=== PATIENT | female | born 1950 | race Caucasian/White ===

== ENCOUNTER → 2020-07-05 12:43 | Outpatient (REF) | payer MEDICARE, SELFPAY ==
--- NOTE | 2020-07-05 13:18 | ECG_ITS ---
Hook-up date: 2020-07-05 12:57:00 Duration: 23:15:00 Test Indications: Palpitations Medications: [id number] QRS complexes 3 Ventricular ectopics which represent <1 % of total QRS comp. 16 Supraventricular ectopics which represent <1 % of total QRS comp. * Paced QRS complexs which represent % of total QRS comp. VENTRICULAR ECTOPY 3 Isolated 0 Bigeminal Cycles 0 Couplets 0 Runs 0 Beats in Runs * Beats LONGEST at * BPM at :: -- * Beats FASTEST at * BPM at :: -- SUPRAVENTRICULAR ECTOPY 16 Isolated 0 Couplets 0 Runs 0 Beats in Runs * Beats LONGEST at * BPM at :: -- * Beats FASTEST at * BPM at :: -- HEART RATES 62 MIN at 19:32:50 2020-07-05 87 AVG 135 MAX at 10:47:21 2020-07-06 LONGEST RR 1.0960 secs at 19:32:46 2020-07-05 S-T LEVELS Channel 1 - 128 mm at 12:57:00 2020-07-05 - 128 mm at 12:57:00 2020-07-05 Channel 2 - 128 mm at 12:57:00 2020-07-05 - 128 mm at 12:57:00 2020-07-05 Channel 3 - 128 mm at 03:21:61 -- - 128 mm at 03:21:61 Basic rhythm Normal sinus rhythm No long pause or profound bradycardia Rare Premature atrial complexes Patient did not report any symptoms in the diary Referred By: Bryan Luz Overread By: PEDRO LUIS LAGUNA MD
== END ==
LOC: HO.CARD 12:43
PROVIDERS: PCP Nurse Practitioner Family; Visit Provider Nurse Practitioner Family
DX: R00.2 Palpitations (principal)
CPT/HCPCS: 93225; 93226

== ENCOUNTER → 2020-07-14 09:40 | Outpatient (BNVA) | payer MEDICARE, SELFPAY | PROVIDERS: PCP Nurse Practitioner Family; Referring Provider Nurse Practitioner Family; Visit Provider Internal Medicine | DX: E11.65 Type 2 diabetes mellitus with hyperglycemia (principal); E04.2 Nontoxic multinodular goiter; E03.9 Hypothyroidism, unspecified; E55.9 Vitamin D deficiency, unspecified; M81.0 Age-related osteoporosis without current pathological fracture; Z79.84 Long term (current) use of oral hypoglycemic drugs; Z79.899 Other long term (current) drug therapy; Z71.3 Dietary counseling and surveillance; Z68.38 Body mass index [BMI] 38.0-38.9, adult | CPT/HCPCS: 82947; 99212 ==

== ENCOUNTER 2020-07-19 11:08 | Outpatient (REF) | payer MEDICARE, SELFPAY ==
--- NOTE | 2020-07-19 | MM_ITS ---
EXAMINATION: MM SCREENING DIGITAL BREAST TOMOSYNTHESIS, BILATERAL CLINICAL INFORMATION: Screening. Asymptomatic. The lifetime risk of breast cancer based on the Tyrer-Cuzick Model is 2.7%. COMPARISON: Mammography: 05/29/2018 and multiple previous mammograms dated back to 08/25/2013 TECHNIQUE: Digital breast tomosynthesis is performed in both the craniocaudal and mediolateral oblique views along with computer-aided detection (CAD). Synthesized 2D images are generated from the tomosynthesis. FINDINGS: There are scattered areas of fibroglandular density (ACR BI-RADS breast composition Category b). There are no significant masses, abnormal calcifications, or other abnormalities. MM/MM tomosynthesis screening BI IMPRESSION: No evidence of malignancy ASSESSMENT: BI-RADS 1: Negative RECOMMENDATION: Routine annual mammography screening. This patient's information was entered into a reminder system with a target due date for their next mammogram.
== END 2020-07-19 11:09 | disposition home or self-care (01) ==
LOC: HO.MAMMO 11:08
PROVIDERS: PCP Nurse Practitioner Family; Visit Provider Nurse Practitioner Family
DX: Z12.31 Encounter for screening mammogram for malignant neoplasm of breast (principal)
CPT/HCPCS: 77063; 77067

== ENCOUNTER 2020-07-27 17:28 | Outpatient (REF) | payer MEDICARE, SELFPAY | END 2020-07-27 17:29 | disposition home or self-care (01) | LOC: HO.LNP 17:28 | PROVIDERS: Visit Provider Internal Medicine | DX: Z20.828 Contact with and (suspected) exposure to other viral communicable diseases (principal) | CPT/HCPCS: U0003 ==

== ENCOUNTER 2020-09-15 09:17 | Outpatient (REF) | payer MEDICARE, SELFPAY ==
[2020-09-15 11:33] LABS: Phosphorus 3.3 mg/dL (2.7-4.5)
[2020-09-15 11:35] LABS: Alanine Aminotransferase 22 U/L (0-31); Albumin Level 4.2 g/dL (3.5-5.0); Alkaline Phosphatase 53 U/L (39-117); Anion Gap 15 (12-20); Aspartate Amino Transferase 19 U/L (5-31); Bilirubin Total 0.3 mg/dL (0.0-1.0); Blood Urea Nitrogen 16 mg/dL (9-16); Calcium 8.3 mg/dL (8.4-10.2); Carbon Dioxide 25 mmol/L (22-29); Chloride 104 mmol/L (96-108); Cholesterol 147 mg/dL; Estimated Glomerular Filt Rate > 60; Glucose Fasting 165 mg/dL (60-99); HDL Cholesterol 60 mg/dL; LDL Cholesterol Calculated 69 mg/dl; Potassium 4.5 mmol/l (3.3-5.1); Sodium 139 mmol/L (135-145); Total Protein 6.7 g/dL (6.5-8.0); Triglycerides 91 mg/dL
[2020-09-15 11:36] LABS: Estimated Average Glucose 148 mg/dL; Hemoglobin A1c % 6.8 %
[2020-09-15 12:00] LABS: Free T4 (Free Thyroxine) 1.02 ng/dL (0.71-1.85); Thyroid Stimulating Hormone 0.41 uIU/mL (0.32-4.0); Vitamin D 25-OH Total 35.5 ng/mL (>30)
[2020-09-15 14:47] LABS: Albumin Level 4.2 g/dL (3.5-5.0); Calcium 8.3 mg/dL (8.4-10.2)
[2020-09-16 15:57] LABS: Calcium, Ionized 4.6 mg/dL (4.8-5.6)
[2020-09-16 17:57] LABS: Calcium (PTHI) 8.5 mg/dL (8.6-10.4); PTHI 44 pg/mL (14-64)
[2020-09-20 15:17] LABS: Prot Elec - Albumin 3.7 g/dL (3.8-4.8); Prot Elec - Alpha1 0.3 g/dL (0.2-0.3); Prot Elec - Alpha2 0.8 g/dL (0.5-0.9); Prot Elec - Beta 1 0.6 g/dL (0.4-0.6); Prot Elec - Beta 2 0.4 g/dL (0.2-0.5); Prot Elec - Gamma 0.7 g/dL (0.8-1.7); Prot Elec - Total Protein 6.5 g/dL (6.1-8.1)
[2020-09-20 22:16] LABS: Alkaline Phosphatase Bone 6.2 mcg/L (5.6-29.0)
[2020-09-22 01:02] LABS: N-Telopeptide 32 (see note); NTXCreaRU 193 mg/dL (20-275)
== END 2020-09-15 09:18 | disposition home or self-care (01) ==
LOC: HO.HMGCLDS 09:17
PROVIDERS: Internal Medicine; PCP Nurse Practitioner Family; Visit Provider Nurse Practitioner Family
DX: M81.0 Age-related osteoporosis without current pathological fracture (principal); E11.65 Type 2 diabetes mellitus with hyperglycemia; E03.9 Hypothyroidism, unspecified; E55.9 Vitamin D deficiency, unspecified
CPT/HCPCS: 36415; 80053; 80061; 82040; 82306; 82310; 82330; 82523; 83036; 83970; 84075; 84100; 84155; 84165; 84439; 84443

== ENCOUNTER 2020-09-22 09:33 | Outpatient (REF) | payer MEDICARE, SELFPAY ==
[2020-09-22 11:40] LABS: Total Volume 24 Hour Urine 1475 mL
[2020-09-22 12:39] LABS: Creatinine, 24Hr Urine 1.6 G/Day (1.0-2.0); Creatinine, mg/dL 107.61
[2020-09-24 19:07] LABS: Calcium, 24 Hr Urine 366 mg/24 h; Calcium/Creatinine Ratio 232 mg/g creat (30-275); Creatinine 24Hr Urine 1.58 g/24 h (0.50-2.15)
== END 2020-09-22 09:34 | disposition home or self-care (01) ==
LOC: HO.HMGCLNP 09:33
PROVIDERS: Visit Provider Internal Medicine
DX: M81.0 Age-related osteoporosis without current pathological fracture (principal)
CPT/HCPCS: 82340; 82570

== ENCOUNTER 2020-09-27 11:09 | Outpatient (REF) | payer MEDICARE, SELFPAY ==
--- NOTE | 2020-09-27 12:56 | MHC.AU.P13 ---
Hearing Aid Evaluation- Binaural Date of Visit: 09/27/20 Duplex Trimmer Used: Declined by Patient Description of Hearing: Right Ear - Mild sloping to severe sensorineural hearing loss. Left ear - severe to profound mixed hearing loss Additional Information: Patient was medically cleared for binaural hearing aids by Dr. Jennings as part of the remediation process for her asymmetric hearing loss. Discussed appropriate styles of hearing aids and patient would like to try [id number] hearing aids due to her manual dexterity difficulties related to Diabetes. I recommended getting the rechargeable Manuel ITC aids. Hearing Instrument Selection: Right Ear: Well Driller: Grand [place] Table Model: Praneeth 1600 ITC-R Battery Size: Rechargeable Color: Light Brown Left Ear: Well Driller: Manuel Model: Praneeth 1600 ITC-R Battery Size: Rechargeable Color: Light Brown Plan: Plan of Care for Hearing Instrument Fitting: Patient wishes to purchase hearing aids as prescribed Action Taken/Action Needed: [place] Impressions Taken Medical Clearance to be received from ENT Hearing Fitting to be scheduled when materials arrive Diagnosis Code(s): Primary Diagnosis: H90.A32 Mixed HL, Unilateral, Left Ear, W/Restricted Contralateral Services Performed: Hearing Aid Evaluation Type: HAE B: Binaural 3rd Green Party Ear Impression (Quantity): 2 Signature: Provider: Jessica Blanco, CCC-A
== END 2020-09-27 11:10 | disposition home or self-care (01) ==
LOC: HO.HAP 11:09
PROVIDERS: Visit Provider Nurse Practitioner Family
DX: Z46.1 Encounter for fitting and adjustment of hearing aid (principal); H90.A32 Mixed conductive and sensorineural hearing loss, unilateral, left ear with restricted hearing on the contralateral side
CPT/HCPCS: 92591; V5275

== ENCOUNTER 2020-10-13 09:52 | Outpatient (REF) | payer MEDICARE, SELFPAY | END 2020-10-13 09:53 | disposition home or self-care (01) | LOC: HO.HAP 09:52 | PROVIDERS: PCP Nurse Practitioner Family; Visit Provider Otolaryngology | DX: Z46.1 Encounter for fitting and adjustment of hearing aid (principal); H90.3 Sensorineural hearing loss, bilateral | CPT/HCPCS: 92595; V5011; V5020; V5160; V5259 ==

== ENCOUNTER → 2020-11-04 11:13 | Outpatient (BNVA) | payer MEDICARE, SELFPAY | PROVIDERS: PCP Nurse Practitioner Family; Referring Provider Nurse Practitioner Family; Visit Provider Internal Medicine | CPT/HCPCS: Q3014 ==

== ENCOUNTER 2021-03-29 08:35 | Outpatient (REF) | payer OTHER, SELFPAY ==
[2021-03-29 11:45] LABS: Estimated Average Glucose 177 mg/dL; Hemoglobin A1c % 7.8 %
[2021-03-29 11:55] LABS: Alanine Aminotransferase 10 U/L (0-31); Albumin Level 4.2 g/dL (3.5-5.0); Alkaline Phosphatase 54 U/L (39-117); Anion Gap 18 (12-20); Aspartate Amino Transferase 12 U/L (5-31); Bilirubin Total 0.3 mg/dL (0.0-1.0); Blood Urea Nitrogen 18 mg/dL (9-16); Calcium 9.3 mg/dL (8.4-10.2); Carbon Dioxide 25 mmol/L (22-29); Chloride 101 mmol/L (96-108); Cholesterol 143 mg/dL; Estimated Glomerular Filt Rate 56; Glucose Fasting 184 mg/dL (60-99); HDL Cholesterol 59 mg/dL; LDL Cholesterol Calculated 58 mg/dl; Potassium 4.7 mmol/L (3.3-5.1); Sodium 139 mmol/L (135-145); Triglycerides 131 mg/dL
[2021-03-29 12:04] LABS: TSH reflex Free T4 0.47 uIU/mL (0.32-4.0)
== END 2021-03-29 08:36 | disposition home or self-care (01) ==
LOC: HO.HMGCLDS 08:35
PROVIDERS: PCP Nurse Practitioner Family; Visit Provider Nurse Practitioner Family
DX: E11.65 Type 2 diabetes mellitus with hyperglycemia (principal)
CPT/HCPCS: 36415; 80053; 80061; 83036; 84443

== ENCOUNTER 2021-03-30 | Outpatient (REF) | payer OTHER, SELFPAY ==
[2021-03-30 14:05] LABS: Glucose Urine UA 100 MG/DL (NEG); Leukocyte Esterase Urine NEG (NEG); Nitrite Urine NEG (NEG); PH 5.5 (5.0-8.0); Specific Gravity - Urine >= 1.030 (1.005-1.025); Urine Blood NEG (NEG); Urine Ketones NEG (NEG); Urine Protein NEG (NEG-TRACE)
[2021-03-30 14:10] LABS: Appearance Urine CLEAR; Color Urine YELLOW
[2021-03-30 14:25] LABS: Creatinine Urine 144.48 mg/dL; Microalbum/Creatinine Ratio Ur 4.8 ug/mg cr
== END 2021-03-30 00:01 | disposition home or self-care (01) ==
LOC: HO.HMGCLNP
PROVIDERS: Visit Provider Nurse Practitioner Family
DX: E11.65 Type 2 diabetes mellitus with hyperglycemia (principal)
CPT/HCPCS: 81003; 82043

== ENCOUNTER 2021-08-05 09:02 | Outpatient (REF) | payer OTHER, SELFPAY ==
[2021-08-05 11:39] LABS: Estimated Average Glucose 126 mg/dL
[2021-08-05 12:09] LABS: Alanine Aminotransferase 11 U/L (0-31); Albumin Level 4.2 g/dL (3.5-5.0); Alkaline Phosphatase 51 U/L (39-117); Anion Gap 19 (12-20); Aspartate Amino Transferase 13 U/L (5-31); Bilirubin Total 0.3 mg/dL (0.0-1.0); Blood Urea Nitrogen 14 mg/dL (9-16); Calcium 9.2 mg/dL (8.4-10.2); Carbon Dioxide 23 mmol/L (22-29); Chloride 103 mmol/L (96-108); Cholesterol 135 mg/dL; Estimated Glomerular Filt Rate 55; Glucose Fasting 128 mg/dL (60-99); HDL Cholesterol 55 mg/dL; LDL Cholesterol Calculated 57 mg/dl; Potassium 4.6 mmol/L (3.3-5.1); Sodium 140 mmol/L (135-145); Total Protein 6.9 g/dL (6.5-8.0); Triglycerides 119 mg/dL
[2021-08-05 12:14] LABS: TSH reflex Free T4 0.52 uIU/mL (0.32-4.0); Vitamin D 25-OH Total 33.7 ng/mL (>30)
== END 2021-08-05 09:03 | disposition home or self-care (01) ==
LOC: HO.HMGCLDS 09:02
PROVIDERS: Visit Provider Nurse Practitioner Family
DX: E11.65 Type 2 diabetes mellitus with hyperglycemia (principal); M81.0 Age-related osteoporosis without current pathological fracture
CPT/HCPCS: 36415; 80053; 80061; 82306; 83036; 84443

== ENCOUNTER 2021-08-06 10:31 | Outpatient (REF) | payer OTHER, SELFPAY ==
[2021-08-06 13:52] LABS: Appearance Urine TURBID; Color Urine YELLOW; Glucose Urine UA NEG (NEG); Leukocyte Esterase Urine NEG (NEG); Nitrite Urine NEG (NEG); Specific Gravity - Urine >= 1.030 (1.005-1.025); Urine Blood NEG (NEG); Urine Ketones NEG (NEG); Urine Protein NEG (NEG-TRACE)
[2021-08-06 14:05] LABS: Creatinine Urine 218.65 mg/dL; Microalbum/Creatinine Ratio Ur 3.6 ug/mg cr
== END 2021-08-06 10:32 | disposition home or self-care (01) ==
LOC: HO.HMGCLNP 10:31
PROVIDERS: Visit Provider Nurse Practitioner Family
DX: E11.65 Type 2 diabetes mellitus with hyperglycemia (principal)
CPT/HCPCS: 81003; 82043

== ENCOUNTER → 2021-09-12 09:50 | Outpatient (BNVA) | payer OTHER, SELFPAY | PROVIDERS: PCP Nurse Practitioner Family; Visit Provider Internal Medicine | DX: E11.65 Type 2 diabetes mellitus with hyperglycemia (principal); E04.2 Nontoxic multinodular goiter; E03.9 Hypothyroidism, unspecified; E55.9 Vitamin D deficiency, unspecified; M81.0 Age-related osteoporosis without current pathological fracture | CPT/HCPCS: 82947; 99212 ==

== ENCOUNTER 2021-12-01 07:43 | Outpatient (REF) | payer MEDICARE, SELFPAY ==
--- NOTE | 2021-12-01 08:41 | PM.OP ---
Brief Operative Note Date of Service: 12/01/21 Pre-op diagnosis: Multinodular Thyroid Procedure: This is doctor Karen Sol. This is an ultrasound-guided fine-needle aspiration report. Date of Examination: 12/01/2021 Indication: Multinodular Thyroid Porcedure: Procedure was explained to the patient. Alternatives, the risk and benefits were discussed. Written consent was obtained. A time-out was also obtained. After sterile preparation, fine-needle aspiration of a right mid pole 3.4 cm thyroid nodule was performed using direct ultrasound guidance to confirm accurate needle placement. Four aspirations were made using 27 gauge needles. Samples were submitted for cytology. One pass was dedicated for Afirma Gene sequencing barrel rifler broach testing. The patient tolerated the procedure well. Aftercare instructions were provided. Impression: Uncomplicated fine needle aspiration biopsy of a right mid pole 3.4 cm thyroid nodule under ultrasound guidance. Surgeon: Karen Sol, DO Was an Engineer Byproduct used for this Procedure?: No Estimated blood loss (mL): 0
[2021-12-01] MEDS: Lidocaine HCl 1 % MPF 5 ML VIAL SUBCUT (08:48)
== END 2021-12-01 07:44 | disposition home or self-care (01) ==
LOC: HO.US 07:43
PROVIDERS: PCP Nurse Practitioner Family; Visit Provider Internal Medicine
DX: E04.2 Nontoxic multinodular goiter (principal)
CPT/HCPCS: 10005; 88172; 88173; 88177

== ENCOUNTER 2021-12-08 07:56 | Outpatient (REF) | payer MEDICARE, SELFPAY ==
[2021-12-08 11:20] LABS: Appearance Urine HAZY; Color Urine YELLOW; Glucose Urine UA NEG (NEG); Leukocyte Esterase Urine NEG (NEG); Nitrite Urine NEG (NEG); PH 6.5 (5.0-8.0); Specific Gravity - Urine 1.015 (1.005-1.025); Urine Blood NEG (NEG); Urine Ketones NEG (NEG); Urine Protein NEG (NEG-TRACE)
[2021-12-08 11:26] LABS: Estimated Average Glucose 123 mg/dL; Hemoglobin A1c % 5.9 %
[2021-12-08 11:47] LABS: Alanine Aminotransferase 10 U/L (0-31); Albumin Level 4.2 g/dL (3.5-5.0); Alkaline Phosphatase 41 U/L (39-117); Anion Gap 18 (12-20); Aspartate Amino Transferase 12 U/L (5-31); Bilirubin Total 0.4 mg/dL (0.0-1.0); Blood Urea Nitrogen 11 mg/dL (9-16); Calcium 9.5 mg/dL (8.4-10.2); Carbon Dioxide 22 mmol/L (22-29); Chloride 103 mmol/L (96-108); Cholesterol 141 mg/dL; Estimated Glomerular Filt Rate 55; Glucose Fasting 143 mg/dL (60-99); HDL Cholesterol 57 mg/dL; LDL Cholesterol Calculated 61 mg/dl; Potassium 4.6 mmol/L (3.3-5.1); Sodium 138 mmol/L (135-145); Total Protein 6.9 g/dL (6.5-8.0); Triglycerides 115 mg/dL
[2021-12-08 11:53] LABS: TSH reflex Free T4 0.81 uIU/mL (0.32-4.0)
== END 2021-12-08 07:57 | disposition home or self-care (01) ==
LOC: HO.HMGCLDS 07:56
PROVIDERS: Visit Provider Nurse Practitioner Family
DX: E11.9 Type 2 diabetes mellitus without complications (principal)
CPT/HCPCS: 36415; 80053; 80061; 81003; 83036; 84443

== ENCOUNTER → 2021-12-15 11:28 | Outpatient (BNVA) | payer OTHER, SELFPAY | PROVIDERS: PCP Nurse Practitioner Family; Visit Provider Internal Medicine | DX: E04.2 Nontoxic multinodular goiter (principal); E03.9 Hypothyroidism, unspecified; E55.9 Vitamin D deficiency, unspecified | CPT/HCPCS: Q3014 ==

== ENCOUNTER → 2022-03-16 11:51 | Outpatient (BNVA) | payer OTHER, SELFPAY | PROVIDERS: PCP Nurse Practitioner Family; Visit Provider Internal Medicine | DX: E04.2 Nontoxic multinodular goiter (principal); E03.9 Hypothyroidism, unspecified; E55.9 Vitamin D deficiency, unspecified | CPT/HCPCS: Q3014 ==

== ENCOUNTER 2022-06-13 08:13 | Outpatient (REF) | payer OTHER, SELFPAY ==
--- NOTE | ~2022-06-13 | MM_ITS ---
EXAMINATION: MM SCREENING DIGITAL BREAST TOMOSYNTHESIS, BILATERAL CLINICAL INFORMATION: Screening. Asymptomatic. The lifetime risk of breast cancer based on the Tyrer-Cuzick Model is 2%. COMPARISON: Mammography: 07/19/2020, 05/29/2018, 05/01/2017 TECHNIQUE: Digital breast tomosynthesis is performed in both the craniocaudal and mediolateral oblique views along with computer-aided detection (CAD). Synthesized 2D images are generated from the tomosynthesis. FINDINGS: There are scattered areas of fibroglandular density (ACR BI-RADS breast composition Category b). There are no significant masses, abnormal calcifications, or other abnormalities. Parenchymal pattern is similar to prior exams. Small stable intramammary node again suggested mid outer left breast on CC view. No developing density. The axilla and skin contours are unremarkable. MM/MM tomosynthesis screening BI IMPRESSION: No mammographic evidence of malignancy. ASSESSMENT: BI-RADS 2: Benign RECOMMENDATION: Routine annual mammography screening. This patient's information was entered into a reminder system with a target due date for their next mammogram.
--- NOTE | ~2022-06-13 | MM_ITS ---
EXAMINATION: BONE DENSITOMETRY CLINICAL INDICATION: Osteoporosis. COMPARISON: Previous BD dated 06/09/2020 and baseline BD dated 04/30/2015. TECHNIQUE: Using a Jaxtr DXA System (software version: 13.1) manufactured by [employer], dual-energy x-ray absorptiometry was performed of the lumbar spine and left hip. The images are of good technical quality. Summary results are attached. FINDINGS: AP SPINE L1-L4: Current: BMD 0.917 g/cm2, Z-score -0.7, T-score -2.2, osteopenia, 3.6% increase from previous, 20.2% increase from baseline (<5% change is not significant). Prior: BMD 0.885 g/cm2. Baseline: BMD 0.763 g/cm2. LEFT FEMUR, NECK: Current: BMD 0.598 g/cm2, Z-score -1.5, T-score -3.2, osteoporosis. Prior: BMD 0.747 g/cm2. Baseline: BMD 0.719 g/cm2. LEFT FEMUR, TOTAL: Current: BMD 0.692 g/cm2, Z-score -1.1, T-score -2.5, osteoporosis, 16.3% decrease from previous, 7.4% decrease from baseline (<5% change is not significant). Prior: BMD 0.827 g/cm2. Baseline: BMD 0.747 g/cm2. IDENTIFIED RISK FACTORS: Early menopause, history of fracture (adult), secondary osteoporosis. HISTORY OF FRACTURE: Forearm. MEDICATIONS: None listed. MM/XR DEXA axial skeleton IMPRESSION: 1. DIAGNOSIS: Osteoporosis based on the lowest T-score value of -3.2 in the femoral neck applying World Health Organization criteria. 2. 10-YEAR FRACTURE RISK PREDICTION, FRAX: According to the guidelines, FRAX calculation should only be performed on patients in the osteopenia bone density category. Therefore, FRAX was not performed on this patient. 3. Treatment Recommendations: NOF guidelines recommend consideration for treatment in postmenopausal women and men age 50 and older presenting with the following: -A hip or vertebral (clinical or morphometric) fracture. -T-score less than or equal to -2.5 at the femoral neck or spine after appropriate evaluation to exclude secondary causes. -Low bone mass at the hip or spine and a 10-year fracture probability by FRAX of greater than or equal to 3% for hip fracture or greater than or equal to 20% for major osteoporotic fracture based on the [place] adapted WHO algorithm. 4. Other Recommendations: All treatment decisions require clinical judgment and consideration of individual patient factors, including patient preferences, comorbidities, previous drug use, risk factors not captured in the FRAX model (e.g. frailty, falls, vitamin D deficiency, increased bone turnover, interval significant decline in bone density) and possible under or overestimation of fracture risk by FRAX. Additional medical evaluation for secondary cause of low bone mineral density may be appropriate. FUTURE SCAN RECOMMENDATION: People with diagnosed cases of osteoporosis or at high risk for fracture should have regular bone mineral density tests. For patients eligible for Medicare, routine testing is allowed once every 2 years. The testing frequency can be increased to one year for patients who have rapidly progressing disease, those who are receiving or discontinuing medical therapy to restore bone mass, or have additional risk factors.
== END 2022-06-13 08:14 | disposition home or self-care (01) ==
LOC: HO.MAMMO 08:13
PROVIDERS: PCP Nurse Practitioner Family; Visit Provider Nurse Practitioner Family
DX: Z12.31 Encounter for screening mammogram for malignant neoplasm of breast (principal); Z13.820 Encounter for screening for osteoporosis; Z78.0 Asymptomatic menopausal state; M81.0 Age-related osteoporosis without current pathological fracture
CPT/HCPCS: 77063; 77067; 77080

== ENCOUNTER 2022-07-12 09:22 | Outpatient (REF) | payer OTHER, SELFPAY ==
[2022-07-12 11:27] LABS: MANUAL DIFF FLAG NO
[2022-07-12 11:30] LABS: Appearance Urine Clear; Color Urine Yellow; Glucose Urine UA Negative (Negative); Leukocyte Esterase Urine Trace (Negative); Nitrite Urine Negative (Negative); PH 5.5 (5.0-9.0); UMIC TRIGGER UACC YES; Urine Blood Negative (Negative); Urine Ketones Negative (Negative); Urine Protein Negative (Neg-Trace)
[2022-07-12 11:35] LABS: Basophils Absolute Auto 0.1 X10*3/uL (0.0-0.2); Basophils Percent Auto 0.7 % (0-2); Eosinophils Absolute Auto 0.3 X10*3/uL (0.0-0.4); Eosinophils Percent Auto 3.6 % (0-4); Hemoglobin 10.2 g/dl (12.0-16.0); Imm Gran Abs Auto 0.06 X10*3/uL (0.00-0.03); Imm Gran Pct Auto 0.7 % (0.0-0.4); Mean Corpuscular HGB Conc 31.9 g/dl (31.0-35.0); Mean Corpuscular Hemoglobin 24.9 pg (27.0-33.0); Mean Platelet Volume 10.8 fL (9.4-12.3); Monocytes Absolute Auto 0.5 X10*3/uL (0.1-1.2); Monocytes Percent Auto 6.2 % (2-11); Neutrophils Absolute Auto 4.2 x10*3/uL (2.0-8.3); Neutrophils Percent Auto 51.8 % (45-73); Platelet Count 429 X10*3/uL (160-400); Red Cell Distribution Width 13.5 % (11.0-16.0); White Blood Count 8.1 X10*3/uL (4.8-10.8)
[2022-07-12 11:42] LABS: Bacteria Urine None Seen (None Seen); Hyaline Casts Urine 0-2 /LPF (0-2); RBC Urine 0-2 /HPF (0-2); Squamous Epithelial Cell Urine 0-2 /HPF (0-2); WBC Urine 0-5 /HPF (0-5)
[2022-07-12 11:43] LABS: Estimated Average Glucose 117 mg/dL; Hemoglobin A1c % 5.7 %
[2022-07-12 12:07] LABS: Anion Gap 17 (12-20); Aspartate Amino Transferase 12 U/L (5-31); Bilirubin Total 0.2 mg/dL (0.0-1.0); Blood Urea Nitrogen 22 mg/dL (9-16); Calcium 9.4 mg/dL (8.4-10.2); Carbon Dioxide 25 mmol/L (22-29); Chloride 101 mmol/L (96-108); Estimated Glomerular Filt Rate 43; Glucose Fasting 125 mg/dL (60-99); Potassium 4.8 mmol/L (3.3-5.1); Sodium 138 mmol/L (135-145)
[2022-07-12 12:08] LABS: Alanine Aminotransferase 9 U/L (0-31); Albumin Level 4.4 g/dL (3.5-5.0); Alkaline Phosphatase 51 U/L (39-117); Cholesterol 159 mg/dL; HDL Cholesterol 58 mg/dL; LDL Cholesterol Calculated 78 mg/dl; Triglycerides 116 mg/dL
[2022-07-12 12:10] LABS: TSH reflex Free T4 0.18 uIU/mL (0.32-4.0)
[2022-07-12 12:51] LABS: Free T4 (Free Thyroxine) 1.19 ng/dL (0.71-1.85)
== END 2022-07-12 09:23 | disposition home or self-care (01) ==
LOC: HO.HMGCLDS 09:22
PROVIDERS: PCP Nurse Practitioner Family; Visit Provider Nurse Practitioner Family
DX: E11.9 Type 2 diabetes mellitus without complications (principal)
CPT/HCPCS: 36415; 80053; 80061; 81001; 83036; 84439; 84443; 85025

== ENCOUNTER 2022-07-21 08:16 | Outpatient (REF) | payer OTHER, SELFPAY ==
[2022-07-21 11:27] LABS: MANUAL DIFF FLAG NO
[2022-07-21 11:44] LABS: Basophils Percent Auto 0.4 % (0-2); Eosinophils Absolute Auto 0.3 X10*3/uL (0.0-0.4); Eosinophils Percent Auto 2.6 % (0-4); Hematocrit 31.4 % (37.0-47.0); Imm Gran Abs Auto 0.03 X10*3/uL (0.00-0.03); Imm Gran Pct Auto 0.3 % (0.0-0.4); Lymphocytes Percent Auto 41.9 % (20-40); Mean Corpuscular HGB Conc 31.8 g/dl (31.0-35.0); Mean Corpuscular Hemoglobin 25.1 pg (27.0-33.0); Mean Corpuscular Volume 78.7 fL (80.0-98.0); Mean Platelet Volume 10.8 fL (9.4-12.3); Monocytes Absolute Auto 0.5 X10*3/uL (0.1-1.2); Monocytes Percent Auto 4.9 % (2-11); Neutrophils Absolute Auto 4.7 x10*3/uL (2.0-8.3); Neutrophils Percent Auto 49.9 % (45-73); Platelet Count 428 X10*3/uL (160-400); Red Blood Count 3.99 X10*6/uL (4.20-5.50); Red Cell Distribution Width 13.5 % (11.0-16.0); White Blood Count 9.5 X10*3/uL (4.8-10.8)
[2022-07-21 12:41] LABS: TSH reflex Free T4 0.26 uIU/mL (0.32-4.0)
[2022-07-21 13:22] LABS: Free T4 (Free Thyroxine) 1.26 ng/dL (0.71-1.85)
== END 2022-07-21 08:17 | disposition home or self-care (01) ==
LOC: HO.HMGCLDS 08:16
PROVIDERS: PCP Nurse Practitioner Family; Visit Provider Internal Medicine
DX: D64.9 Anemia, unspecified (principal); R79.89 Other specified abnormal findings of blood chemistry
CPT/HCPCS: 36415; 84439; 84443; 85025

== ENCOUNTER 2022-07-25 09:08 | Outpatient (REF) | payer OTHER, SELFPAY ==
[2022-07-25 12:15] LABS: Appearance Urine Clear; Color Urine Yellow; Glucose Urine UA Negative (Negative); Leukocyte Esterase Urine Negative (Negative); Nitrite Urine Negative (Negative); Urine Blood Negative (Negative); Urine Ketones Negative (Negative); Urine Protein Negative (Neg-Trace)
== END 2022-07-25 09:09 | disposition home or self-care (01) ==
LOC: HO.HMGCLDS 09:08
PROVIDERS: PCP Nurse Practitioner Family; Visit Provider Nurse Practitioner Family
DX: E11.9 Type 2 diabetes mellitus without complications (principal)
CPT/HCPCS: 81003

== ENCOUNTER 2022-11-16 08:09 | Outpatient (REF) | payer OTHER, SELFPAY ==
[2022-11-16 11:30] LABS: Appearance Urine Clear; Color Urine Yellow; Glucose Urine UA Negative (Negative); Leukocyte Esterase Urine Negative (Negative); Nitrite Urine Negative (Negative); PH 6.5 (5.0-9.0); Urine Blood Negative (Negative); Urine Ketones Negative (Negative); Urine Protein Negative (Neg-Trace)
[2022-11-16 11:32] LABS: MANUAL DIFF FLAG NO
[2022-11-16 11:39] LABS: Basophils Percent Auto 0.5 % (0-2); Eosinophils Absolute Auto 0.3 X10*3/uL (0.0-0.4); Eosinophils Percent Auto 3.6 % (0-4); Hematocrit 30.8 % (37.0-47.0); Hemoglobin 9.5 g/dl (12.0-16.0); Imm Gran Abs Auto 0.03 X10*3/uL (0.00-0.03); Imm Gran Pct Auto 0.4 % (0.0-0.4); Lymphocytes Percent Auto 40.2 % (20-40); Mean Corpuscular HGB Conc 30.8 g/dl (31.0-35.0); Mean Corpuscular Hemoglobin 23.6 pg (27.0-33.0); Mean Corpuscular Volume 76.6 fL (80.0-98.0); Mean Platelet Volume 11.2 fL (9.4-12.3); Monocytes Absolute Auto 0.5 X10*3/uL (0.1-1.2); Monocytes Percent Auto 6.8 % (2-11); Neutrophils Absolute Auto 3.6 x10*3/uL (2.0-8.3); Neutrophils Percent Auto 48.5 % (45-73); Platelet Count 385 X10*3/uL (160-400); Red Blood Count 4.02 X10*6/uL (4.20-5.50); Red Cell Distribution Width 13.8 % (11.0-16.0); Retic HGB Equivalent 27.4 pg (30.0-35.0); Reticulocyte Percent 1.6 % (0.5-1.8); Reticulocytes Absolute 0.062 X10*6/uL (0.026-0.095); White Blood Count 7.5 X10*3/uL (4.8-10.8)
[2022-11-16 11:57] LABS: Alanine Aminotransferase 13 U/L (0-31); Albumin Level 4.2 g/dL (3.5-5.0); Alkaline Phosphatase 52 U/L (39-117); Anion Gap 17 (12-20); Aspartate Amino Transferase 16 U/L (5-31); Bilirubin Total 0.3 mg/dL (0.0-1.0); Blood Urea Nitrogen 15 mg/dL (9-16); Calcium 8.8 mg/dL (8.4-10.2); Carbon Dioxide 24 mmol/L (22-29); Chloride 105 mmol/L (96-108); Cholesterol 151 mg/dL; Estimated Glomerular Filt Rate 51; Glucose Fasting 160 mg/dL (60-99); HDL Cholesterol 62 mg/dL; Iron 40 mcg/dL (30-160); LDL Cholesterol Calculated 72 mg/dl; Percent Iron Saturation 9 % (15-50); Potassium 4.8 mmol/L (3.3-5.1); Sodium 141 mmol/L (135-145); Total Iron Binding Capacity 456 mcg/dL (228-428); Total Protein 6.7 g/dL (6.5-8.0); Triglycerides 86 mg/dL; Unsaturated Iron Binding 416 ug/dL
[2022-11-16 12:34] LABS: Ferritin 9 ng/mL (10-250); Folate 9.3 ng/mL (> or = 4.0); TSH reflex Free T4 1.09 uIU/mL (0.32-4.0); Vitamin B12 181 pg/mL (200-900)
[2022-11-21 13:28] LABS: Transglutaminase Ab IgG <1.0 U/mL; Transglutaminase IgA <1.0 U/mL
[2022-11-21 13:53] LABS: Endomysial IgA Antibody Negative (Negative)
== END 2022-11-16 08:10 | disposition home or self-care (01) ==
LOC: HO.HMGCLDS 08:09
PROVIDERS: PCP Nurse Practitioner Family; Visit Provider Nurse Practitioner Family
DX: E11.9 Type 2 diabetes mellitus without complications (principal); D64.9 Anemia, unspecified
CPT/HCPCS: 36415; 80053; 80061; 81003; 82607; 82728; 82746; 83540; 84443; 85025; 85045; 86231; 86364

== ENCOUNTER 2023-04-05 10:09 | Outpatient (REF) | payer OTHER, SELFPAY ==
[2023-04-05 13:25] LABS: MANUAL DIFF FLAG NO
[2023-04-05 13:56] LABS: Basophils Percent Auto 0.5 % (0-2); Eosinophils Absolute Auto 0.3 X10*3/uL (0.0-0.4); Eosinophils Percent Auto 4.3 % (0-4); Hematocrit 31.6 % (37.0-47.0); Hemoglobin 9.9 g/dl (12.0-16.0); Imm Gran Abs Auto 0.02 X10*3/uL (0.00-0.03); Imm Gran Pct Auto 0.3 % (0.0-0.4); Lymphocytes Percent Auto 33.6 % (20-40); Mean Corpuscular HGB Conc 31.3 g/dl (31.0-35.0); Mean Corpuscular Hemoglobin 24.7 pg (27.0-33.0); Mean Corpuscular Volume 78.8 fL (80.0-98.0); Mean Platelet Volume 11.3 fL (9.4-12.3); Monocytes Absolute Auto 0.4 X10*3/uL (0.1-1.2); Monocytes Percent Auto 6.2 % (2-11); Neutrophils Absolute Auto 3.3 x10*3/uL (2.0-8.3); Neutrophils Percent Auto 55.1 % (45-73); Platelet Count 315 X10*3/uL (160-400); Red Blood Count 4.01 X10*6/uL (4.20-5.50)
[2023-04-05 15:15] LABS: Ferritin 33 ng/mL (10-250); Iron 51 mcg/dL (30-160); Percent Iron Saturation 14 % (15-50); Total Iron Binding Capacity 374 mcg/dL (228-428); Unsaturated Iron Binding 323 ug/dL
[2023-04-05 16:18] LABS: Folate 8.8 ng/mL (> or = 4.0); Vitamin B12 256 pg/mL (200-900)
[2023-04-10 16:53] LABS: Transglutaminase Ab IgG <1.0 U/mL; Transglutaminase IgA <1.0 U/mL
[2023-04-10 21:52] LABS: Intrinsic Factor Antibodies Negative (Negative)
[2023-04-11 16:38] LABS: Parietal Cell Antibody <=20.0 Unit (<=20.0)
[2023-04-14 12:44] LABS: Endomysial IgA Antibody Negative (Negative)
== END 2023-04-05 10:10 | disposition home or self-care (01) ==
LOC: HO.HMGCLDS 10:09
PROVIDERS: PCP Nurse Practitioner Family; Visit Provider Nurse Practitioner Family
DX: E53.8 Deficiency of other specified B group vitamins (principal); E61.1 Iron deficiency
CPT/HCPCS: 36415; 82607; 82728; 82746; 83516; 83540; 85025; 86231; 86340; 86364

== ENCOUNTER 2023-08-27 15:14 | Outpatient (AMB) | payer OTHER, SELFPAY ==
--- NOTE | 2023-08-27 15:32 | A.OFFPC_ITS ---
Vital Signs 08/27/23 15:36 Height 4 ft 9 in Weight 166 lb BMI 35.9 BP 130/86 Blood Pressure Location Rt brachial Position Sitting Pulse 97 Pulse Source Pulse Oximeter Pulse Oximetry (%) 97 Oxygen Delivery Method Room Air Intake Visit Reasons: follow up memory Allergies No Known Allergies [No Known Allergies*] Allergy (Verified 08/27/23 17:45) Medication List - Last Reconciled 08/27/23 by SARITHA AmaralP- alendronate 70 mg PO QWEEK alprazolam 0.5 mg PO BID PRN 30 days aspirin 1 tab PO DAILY atorvastatin 20 mg PO DAILY blood-glucose meter (FreeStyle Lite Meter kit) Free style Lite device check sugar 2 times a day calcium carbonate-vitamin D3 600 mg-12.5 mcg (500 unit) (Calcium 600 with Vitamin D3) 1 cap PO BID 30 days cyanocobalamin (vitamin B-12) (Dodex) 1,000 mcg subcut [id number] cyanocobalamin (vitamin B-12) 1,000 mcg IM .[id number] 90 days duloxetine 30 mg PO DAILY 90 days ezetimibe 10 mg PO DAILY 90 days fenofibrate nanocrystallized 145 mg PO DAILY 90 days ferrous sulfate 325 mg PO BID fluoxetine 20 mg PO DAILY 90 days FreeStyle Lite Strips (blood sugar diagnostic) Use to check blood sugar twice daily, fasting and a random blood sugar during the day. NS irbesartan 150 mg PO DAILY 90 days lancets Use to check blood sugar twice daily, fasting and a random blood sugar during the day. levothyroxine 50 mcg PO QAM metformin 1,000 mg PO BID omeprazole 20 mg PO BID peg 400-propylene glycol 0.4-0.3 % 0 drps ophthalmic (eye) pen needle, diabetic (BD Ultra-Fine Micro Pen Needle) Once a week with Ozempic quetiapine 200 mg (2 x 100 mg) PO BEDTIME 90 days semaglutide (Ozempic) 0.25 mg (0.368 mL) subcut QWEEK 30 days zolpidem 10 mg PO BEDTIME 30 days Tobacco use date assessed: 11/15/22 Fall risk assessment: No Falls in past year Last assessed Fall Risk: 08/27/23 HPI follow up memory HPI Details Pt is a diabetic, on an ARB and a statin. A1C in office today is 7.2. Due for microalbumin, will order. Denies polyuria, polydipsia, and neuropathy. Pt denies any signs and symptoms of hypoglycemia and does know how to correct it. Pt would like to restart ozempic, will send 0.25mg. Eye exam is up to date. [facility] Medical History Hypothyroidism Multinodular thyroid Osteoporosis T2DM (type 2 diabetes mellitus) Vitamin D deficiency Surgical History Hx of thyroidectomy History of surgery on wrist Hx of cholecystectomy Family History Father Emphysema of lung Mother Myocardial infarction Hypertension Cardiovascular disease Social History Housing: Condominium Patient Tobacco Use Status: Never used Tobacco e-Cigarette/Vaping Use: Never Used Current occupational status: retired Cognitive needs: No Hearing needs: No Vision needs: No Review of Systems Const Reports as per HPI Physical exam (Primary Care) Vital Signs: Last Vital Signs Pulse 97 08/27/23 15:36 BP 130/86 08/27/23 15:36 Pulse Ox 97 08/27/23 15:36 Oxygen Delivery Method Room Air 08/27/23 15:36 BMI result Body Mass Index 35.9 Tobacco/Smoking Status: Tobacco use Status Tobacco use date assessed 11/15/22 08/27/23 15:33 Patient Tobacco Use Status Never used Tobacco 08/27/23 15:33 e-Cigarette/Vaping Use Never Used 08/27/23 15:33 Const General: cooperative Nutritional Appearance: obese Orientation/consciousness: patient oriented x3 Resp Effort & Inspection: normal respiratory effort Auscultation: clear to auscultation bilaterally Cardio Rate: regular rate Rhythm: regular rhythm Heart sounds: S1 normal heart sound present, S2 normal heart sound present and Murmur heart sound present systolic Neuro General: patient oriented x3 Extrem Other: bilat feet: + sensation with use of monofilament, feet intact Psych Appearance: grossly normal Mental Status: mental status grossly normal Speech and movement: Normal speech and movement present Affect: normal affect Attitude: cooperative Thought process: Normal thought process present Thought content: Normal thought content present Insight: Good insight present (Psych) Judgement: Good judgement present (Psych) Results AMB Hemoglobin A1c AMB Hemoglobin A1c 7.2 % Last Edit by CRISTINA Denise on 08/27/23 16 :56 Results Reviewed Results Reviewed: Laboratory Last Values Hgb A1c (Clinic) 7.2 % (4.0-6.0) H 08/27/23 16:55 Assessment and Plan Assessment & Plan (1) T2DM (type 2 diabetes mellitus): Code(s): E11.9 - Type 2 diabetes mellitus without complications Qualifiers: Diabetes mellitus complication status: with hyperglycemia Diabetes mellitus residential insulin use: without terminal clerk use Qualified Code(s): E11.65 - Type 2 diabetes mellitus with hyperglycemia Plan: Labs ordered (2) Murmur: Code(s): R01.1 - Cardiac murmur, unspecified Plan: Echo ordered (3) B12 deficiency: Code(s): E53.8 - Deficiency of other specified B group vitamins Plan: Labs ordered Plan The patient agreed to the use of a medical donation professional for this encounter. Scribed for GRIS Ryan by Trina Valadez medical donation professional, on 08/27/2023 at 16:00 EST. Orders: Orders Complete Blood Count Auto Diff Today E11.9 - Type 2 diabetes mellitus without complications UA CC w/rflx Micro + Cult Today E11.9 - Type 2 diabetes mellitus without complications Microalbumin, Random (w Creat) Today E11.9 - Type 2 diabetes mellitus without complications CA echo transthoracic complete Today R01.1 - Cardiac murmur, unspecified Vitamin B12 and Folate Today E53.8 - Deficiency of other specified B group vitamins Comprehensive [place]. Panel Fast Today E11.9 - Type 2 diabetes mellitus without complications TSH reflex Free T4 Today E11.9 - Type 2 diabetes mellitus without complications Lipid Panel Today E11.9 - Type 2 diabetes mellitus without complications AMB Hemoglobin A1c Today Z13.9 - Encounter for screening, unspecified Medications: New semaglutide (Ozempic) for 4 weeks 0.25 mg (0.368 mL) subcut QWEEK 1.84 mL 1RF 30 days Coding Level of Care Code Est Pt Level 3 (62745) Diagnoses Type 2 diabetes mellitus with hyperglycemia, without long-term current use of insulin E11.65 Diabetes mellitus complication status: with hyperglycemia Diabetes mellitus residential insulin use: without terminal clerk use Murmur R01.1 B12 deficiency E53.8
[2023-08-27 15:36] VITALS: BP 130/86; PULSE 97; O2SAT 97; BMI 35.9
== END 2023-08-27 16:19 | disposition home or self-care (01) ==
LOC: HO.HMGC 15:14
PROVIDERS: PCP Nurse Practitioner Family; Visit Provider Nurse Practitioner Family
DX: E11.65 Type 2 diabetes mellitus with hyperglycemia (principal); R01.1 Cardiac murmur, unspecified; E53.8 Deficiency of other specified B group vitamins
CPT/HCPCS: 83036; 99213

== ENCOUNTER → 2023-09-13 11:49 | Outpatient (REF) | payer OTHER, SELFPAY ==
--- NOTE | 2023-09-13 11:51 | CA_ITS ---
Transthoracic Echocardiogram Patient (Last, First, Middle): Consuelo Bauer, Gender: Female Date of : 1950 Age: 72 Procedure Date: 09/13/2023 Procedure Type: Transthoracic Echocardiogram Location: OP Height: 144.78 cm Weight: 75.3 kg BSA: 1.66 m2 Heart Rate: 92 bpm BP: 130 / 86 mmHg Piccoloist: FRANKIE Referring MD: Bryan Luz [facility] Symptoms: R01.1 - Cardiac murmur, unspecified Study Quality: Adequate ECG Rhythm: Sinus Conclusions: - The left ventricular systolic function is normal. The calculated ejection fraction is 66% by biplane method. - There is mild calcification of the aortic valve. - There is mild mitral annular calcification. - There is mild mitral valve regurgitation. Findings Left Ventricle Normal left ventricular cavity size. The left ventricular systolic function is normal. The calculated ejection fraction is 66% by biplane method. There is no evidence of regional wall motion abnormalities. Evidence suggests grade I (mild) diastolic dysfunction. There is moderate septal asymmetric hypertrophy. LV peak GLS -13%; possible underestimation. Right Ventricle Normal right ventricular cavity size and systolic function. Atria Both atria are normal in size. There is lipomatous hypertrophy of the interatrial septum. Aortic Valve There is a normal trileaflet aortic valve. There is mild calcification of the aortic valve. There is no aortic valve stenosis. There is no aortic valve regurgitation. Mitral Valve There is mild anterior mitral leaflet thickening. There is mild mitral annular calcification. There is mild mitral valve regurgitation. There is no mitral valve stenosis. Pulmonic Valve The pulmonic valve is likely normal. Tricuspid Valve Normal tricuspid valve structure. There is mild tricuspid valve regurgitation. There is no evidence of pulmonary hypertension. Great Vessels The asc aorta is normal in size. Venous The inferior vena cava is normal in size and collapses greater than 50% with inspiration. Pericardium/Pleural There is no evidence of pericardial effusion. Prior Study Comparison No significant change compared to prior study dated: 05/12/2019. Measurements 2D Linear Measurements IVSd: 1.53 0.6-0.9/0.6-1.0 cm LVIDd: 3.81 3.9-5.3/4.2-5.9 cm LVIDd Index: 2.30 2.4-3.2/2.2-3.1 cm/m2 LVIDs: 2.49 2.0-3.6 cm LVPWd: 1.00 0.7-1.1 cm LA Diam: 2.30 2.7-3.8/3.0-4.0 cm LAIDs Index: 1.39 1.5-2.3 cm/m2 LV Mass: 207.26 67-162/88-224 g LV Mass Index: 124.86 43-95/49-115 g/m2 LVOT Diam: 1.70 3.0+(-)1.3 cm 2D Systolic Function EF 4C: 58.30 >55% EF 2C: 72.40 >55% EF BiP: 66.40 >55% Mitral Valve MV VTI: 0.33 MV Pk Onel: 1.33 MV Mn Onel: 0.96 MV Pk Grad: 7.00 MV Mn Grad: 4.00 MV Pk E: 1.27 MV PK A: 1.29 MV Decel Time: 180.00 E/A: 1.00 E'Lateral: 5.98 E'Medial: 5.44 E/E' Med: 23.30 E/E' Lat: 21.20 PHT: 53.00 MVA PHT: 4.15 MVA Continuity: 1.69 Decel Haskell: 7.06 Aortic Valve AoV Pk Onel: 1.77 AoV Mn Onel: 1.32 AoV VTI: 0.35 AoV Pk Grad: 13.00 Aov Mn Grad: 8.00 VEE Cont.VTI: 1.60 LVOT LVOT Pk Onel: 1.26 LVOT Mn Onel: 0.93 LVOT VTI: 0.25 LVOT Pk Grad: 6.00 LVOT Mn Grad: 4.00 LVOT Diam: 1.70 LVOT Area: 2.27 Diastolic Function MV Pk E: 1.27 MV Pk A: 1.29 E/A: 1.00 E'Medial: 5.44 E/E' Med: 23.30 E' Laterial: 5.98 E/E' Lat: 21.20 Right Ventricle TAPSE (mm): 23.00 TVS' Onel: 12.80 Tricuspid Valve TR Pk Onel: 2.63 TR Pk Grad: 28.00 RA Press: 3.00 RVSP: 31.00 Great Vessels Aorta Sinus of Valsalva: 2.50 2.0-3.5 cm Ao Asc: 3.10 2.1-3.4 cm Pulmonary Veins Pulm Vein S/D 1.20 Pulmonary Valve PV Pk Onel: 1.08 Peak PV Grad: 5.00 Updated in Other Vendor System with Status of Final Trae Palma MD electronically signed on 09/15/2023 11:30:37 AM with status of Final
== END ==
LOC: HO.CARD 11:49
PROVIDERS: PCP Nurse Practitioner Family; Visit Provider Nurse Practitioner Family
DX: R01.1 Cardiac murmur, unspecified (principal)
CPT/HCPCS: 93306; 93356

== ENCOUNTER → 2023-09-13 11:51 | Outpatient (BNV) | payer OTHER, SELFPAY | PROVIDERS: PCP Nurse Practitioner Family; Visit Provider Internal Medicine | DX: R01.1 Cardiac murmur, unspecified (principal) | CPT/HCPCS: 93306 ==

== ENCOUNTER 2023-09-21 08:33 | Outpatient (REF) | payer OTHER, SELFPAY ==
[2023-09-21 11:27] LABS: MANUAL DIFF FLAG NO
[2023-09-21 11:41] LABS: Basophils Absolute Auto 0.1 X10*3/uL (0.0-0.2); Basophils Percent Auto 0.6 % (0-2); Eosinophils Absolute Auto 0.3 X10*3/uL (0.0-0.4); Eosinophils Percent Auto 3.3 % (0-4); Hematocrit 34.2 % (37.0-47.0); Hemoglobin 10.8 g/dl (12.0-16.0); Imm Gran Abs Auto 0.02 X10*3/uL (0.00-0.03); Imm Gran Pct Auto 0.2 % (0.0-0.4); Lymphocytes Absolute Auto 3.4 X10*3/uL (1.2-4.9); Lymphocytes Percent Auto 38.1 % (20-40); Mean Corpuscular HGB Conc 31.6 g/dl (31.0-35.0); Mean Corpuscular Volume 79.2 fL (80.0-98.0); Monocytes Absolute Auto 0.5 X10*3/uL (0.1-1.2); Monocytes Percent Auto 5.1 % (2-11); Neutrophils Absolute Auto 4.6 x10*3/uL (2.0-8.3); Neutrophils Percent Auto 52.7 % (45-73); Platelet Count 420 X10*3/uL (160-400); Red Blood Count 4.32 X10*6/uL (4.20-5.50); Red Cell Distribution Width 13.7 % (11.0-16.0); White Blood Count 8.8 X10*3/uL (4.8-10.8)
[2023-09-21 12:26] LABS: Alanine Aminotransferase 7 U/L (0-31); Albumin Level 4.2 g/dL (3.5-5.0); Alkaline Phosphatase 49 U/L (39-117); Anion Gap 16 (12-20); Aspartate Amino Transferase 11 U/L (5-31); Bilirubin Total 0.3 mg/dL (0.0-1.0); Blood Urea Nitrogen 22 mg/dL (9-16); Carbon Dioxide 26 mmol/L (22-29); Chloride 103 mmol/L (96-108); Cholesterol 162 mg/dL (<200); Estimated Glomerular Filt Rate 51; Glucose Fasting 154 mg/dL (60-99); HDL Cholesterol 60 mg/dL (>40); LDL Cholesterol Calculated 79 mg/dL (<100); Potassium 4.2 mmol/L (3.3-5.1); Sodium 141 mmol/L (135-145); Total Protein 7.2 g/dL (6.5-8.0); Triglycerides 119 mg/dL (<150)
[2023-09-21 12:32] LABS: TSH reflex Free T4 1.54 uIU/mL (0.32-4.0)
== END 2023-09-21 08:34 | disposition home or self-care (01) ==
LOC: HO.HMGCLDS 08:33
PROVIDERS: PCP Nurse Practitioner Family; Visit Provider Nurse Practitioner Family
DX: E11.9 Type 2 diabetes mellitus without complications (principal); E53.8 Deficiency of other specified B group vitamins
CPT/HCPCS: 36415; 80053; 80061; 81001; 82043; 82570; 82607; 82746; 84443; 85025

== ENCOUNTER 2023-10-09 07:06 | Outpatient (AMB) | payer OTHER, SELFPAY ==
--- NOTE | 2023-10-09 07:02 | MHC.PC.OV ---
Intake Visit Reasons: Discuss Home Nurse services Allergies No Known Allergies [No Known Allergies*] Allergy (Verified 08/27/23 17:45) Tobacco use date assessed: 11/15/22 HPI Discuss Home Nurse services HPI Details Pt needs VNA services to administer weekly ozempic and monthly B12 injections. She needs a [id number] encounter for this. Last B12 was on the lower end of normal. May transition pt to oral B12 in the future. She is also taking iron bid. FIT test has not been performed. Pt is mostly homebound. Denies fever, chills, and dizziness. [facility] Medical History Hypothyroidism Multinodular thyroid Osteoporosis T2DM (type 2 diabetes mellitus) Vitamin D deficiency Surgical History Hx of thyroidectomy History of surgery on wrist Hx of cholecystectomy Family History Father Emphysema of lung Mother Myocardial infarction Hypertension Cardiovascular disease Social History Housing: Condominium Patient Tobacco Use Status: Never used Tobacco e-Cigarette/Vaping Use: Never Used Current occupational status: retired Cognitive needs: No Hearing needs: No Vision needs: No Review of Systems Const Reports as per HPI Physical exam (Primary Care) Tobacco/Smoking Status: Tobacco use Status Tobacco use date assessed 11/15/22 10/09/23 07:02 Patient Tobacco Use Status Never used Tobacco 10/09/23 07:02 e-Cigarette/Vaping Use Never Used 10/09/23 07:02 Const General: cooperative Orientation/consciousness: patient oriented x3 Neuro General: patient oriented x3 Psych Mental Status: mental status grossly normal Speech and movement: Clear speech present Affect: normal affect Attitude: cooperative Thought process: Normal thought process present Thought content: Normal thought content present Insight: Good insight present (Psych) Judgement: Good judgement present (Psych) Telehealth Telehealth Location of provider rendering services: practice address Location of patient: address on file Patient Identification confirmed using: Name, : Yes Telehealth method: voice only Patient verbally consented to treatment: Yes Patient verbally consented to billing insurance company: Yes Patient informed of any privacy concerns related to visit: Yes Minutes spent on Phone/Video with Pt.: 5 Assessment and Plan Assessment & Plan (1) B12 deficiency: Code(s): E53.8 - Deficiency of other specified B group vitamins Plan: Continue B12 injections monthly (2) Iron deficiency: Code(s): E61.1 - Iron deficiency Plan: Continue taking iron (3) Anemia: Code(s): D64.9 - Anemia, unspecified Plan: Continue taking iron (4) T2DM (type 2 diabetes mellitus): Code(s): E11.9 - Type 2 diabetes mellitus without complications Qualifiers: Diabetes mellitus complication status: with hyperglycemia Diabetes mellitus long wall mining machine helper insulin use: without long wall mining machine helper use Qualified Code(s): E11.65 - Type 2 diabetes mellitus with hyperglycemia Plan: Continue ozempic and metformin Plan The patient agreed to the use of a medical office secretary for this encounter. Scribed for YFN Ryan-BC by Trina Valadez medical office secretary, on 10/09/2023 at 07:00 EST. Coding Level of Care Code Tele Est Pt Level 3 (48464) Diagnoses B12 deficiency E53.8 Iron deficiency E61.1 Anemia D64.9 Type 2 diabetes mellitus with hyperglycemia, without long-term current use of insulin E11.65 Diabetes mellitus complication status: with hyperglycemia Diabetes mellitus intermediate insulin use: without long wall mining machine helper use
== END 2023-10-09 07:31 | disposition home or self-care (01) ==
LOC: HO.HMGC 07:06
PROVIDERS: PCP Nurse Practitioner Family; Visit Provider Nurse Practitioner Family
DX: E11.65 Type 2 diabetes mellitus with hyperglycemia (principal); E53.8 Deficiency of other specified B group vitamins; E61.1 Iron deficiency; D64.9 Anemia, unspecified
CPT/HCPCS: 99441

== ENCOUNTER 2023-11-09 12:01 | Outpatient (REF) | payer OTHER, SELFPAY | END 2023-11-09 12:02 | disposition home or self-care (01) | LOC: HO.MAMMO 12:01 | PROVIDERS: PCP Nurse Practitioner Family; Visit Provider Nurse Practitioner Family | DX: Z12.31 Encounter for screening mammogram for malignant neoplasm of breast (principal) | CPT/HCPCS: 77063; 77067 ==

== ENCOUNTER → 2023-11-09 12:45 | Outpatient (BNV) | payer OTHER, SELFPAY | PROVIDERS: PCP Nurse Practitioner Family; Visit Provider Radiology Diagnostic Radiology | DX: Z12.31 Encounter for screening mammogram for malignant neoplasm of breast (principal) | CPT/HCPCS: 77063; 77067 ==

== ENCOUNTER 2023-11-26 12:52 | Outpatient (AMB) | payer OTHER, SELFPAY ==
[2023-11-26 12:55] VITALS: BP 132/82; PULSE 89; O2SAT 97; BMI 34.6
--- NOTE | 2023-11-26 12:55 | MHC.PC.OV ---
Vital Signs 11/26/23 12:55 Height 4 ft 9 in Weight 160 lb BMI 34.6 BP 132/82 Blood Pressure Location Lt brachial Position Sitting Pulse 89 Pulse Source Pulse Oximeter Pulse Oximetry (%) 97 Oxygen Delivery Method Room Air Intake Visit Reasons: 3 Month follow up Intake Note: pt is here for 3 month follow up Hospitality Manager Required: No Accompanied by: Self / Same As Patient Allergies No Known Allergies [No Known Allergies*] Allergy (Verified 11/26/23 12:55) Medication List - Last Reconciled 11/26/23 by SARITHA AmaralP- alendronate 70 mg PO QWEEK alprazolam 0.5 mg PO BID PRN 30 days aspirin 1 tab PO DAILY atorvastatin 20 mg PO DAILY blood-glucose meter (FreeStyle Lite Meter kit) Free style Lite device check sugar 2 times a day calcium carbonate-vitamin D3 600 mg-12.5 mcg (500 unit) (Calcium 600 with Vitamin D3) 1 cap PO BID 30 days cyanocobalamin (vitamin B-12) (Dodex) 1,000 mcg subcut [id number] cyanocobalamin (vitamin B-12) 1,000 mcg IM .[id number] 90 days duloxetine 30 mg PO DAILY 90 days ezetimibe 10 mg PO DAILY 90 days fenofibrate nanocrystallized 145 mg PO DAILY 90 days ferrous sulfate 325 mg PO BID fluoxetine 20 mg PO DAILY 90 days FreeStyle Lite Strips (blood sugar diagnostic) Use to check blood sugar twice daily, fasting and a random blood sugar during the day. NS irbesartan 150 mg PO DAILY 90 days lancets Use to check blood sugar twice daily, fasting and a random blood sugar during the day. levothyroxine 50 mcg PO QAM metformin 1,000 mg PO BID omeprazole 20 mg PO BID peg 400-propylene glycol 0.4-0.3 % 0 drps ophthalmic (eye) pen needle, diabetic (BD Ultra-Fine Micro Pen Needle) Once a week with Ozempic quetiapine 200 mg (2 x 100 mg) PO BEDTIME 90 days semaglutide (Ozempic) 0.25 mg (0.368 mL) subcut QWEEK 30 days zolpidem 10 mg PO BEDTIME 30 days Tobacco use date assessed: 11/26/23 Fall risk assessment: No Falls in past year Last assessed Fall Risk: 11/26/23 Dental Screening Dental Screen Date: 11/26/23 Did you have a dental visit in the last 12 months?: Yes Did you have a dental problem in the last 6 months where you did not have access to dental care?: No Was dental information given to patient?: Patient has dentist HPI 3 Month follow up HPI Details Pt is a diabetic, on an ARB and a statin. A1C in office today is 6.6. Microalbumin is up to date. Denies polyuria, polydipsia, and neuropathy. Pt denies any signs and symptoms of hypoglycemia and does know how to correct it. Eye exam is up to date. B12 deficiency: Trying pt on oral b12, will continue to monitor B12 levels. HTN: Blood pressure is managed with irbesartan 150mg. Pt reports that her blood pressure is elevated at home. Will add amlodipine 2.5mg. Denies chest pain, shortness of breath, headache, dizziness, and blurred vision. [facility] Medical History Multinodular thyroid Hypothyroidism Vitamin D deficiency T2DM (type 2 diabetes mellitus) Osteoporosis Surgical History Hx of thyroidectomy History of surgery on wrist Hx of cholecystectomy Family History Father Emphysema of lung Mother Myocardial infarction Hypertension Cardiovascular disease Social History [facility] Patient Tobacco Use Status: Never used Tobacco e-Cigarette/Vaping Use: Never Used Current occupational status: retired Cognitive needs: No Hearing needs: No Vision needs: No Questionnaire PHQ-9 Over the last 2 weeks, how often have you been bothered by any of the following problems? 1. Little interest or pleasure in doing things: not at all 2. Feeling down, depressed, or hopeless: not at all 3. Trouble falling or staying asleep, or sleeping too much: not at all 4. Feeling tired or having little energy: not at all 5. Poor appetite or overeating: not at all 6. Feeling bad about yourself - or that you are a failure or have let yourself or your family down: not at all 7. Trouble concentrating on things, such as reading the newspaper or watching television: not at all 8. Moving or speaking so slowly that other people could have noticed. Or the opposite - being so fidgety or restless that you have been moving around a lot more than usual: not at all 9. Thoughts that you would be better off or of hurting yourself in some way: not at all Total score: 0 Depression Screening Interpretation: Negative Depression Screening Done: Yes 16064 - PHQ-9 Billing: Yes Source: Developed by Drs. Wolf Ortez, Otilia Rushing, Jeramie Mccracken and colleagues, with an educational rose from [employer]. Thrive Questionnaire Date Thrive assessed: 11/26/23 I am a: Patient What is your living situation today?: I have a steady place to live Within the past 12 months, did the food you bought not last and you didn't have the money to get more?: Never true Within the past 12 months, did you worry whether your food would run out before you got money to buy more?: Never true Do you have trouble paying for medicines?: No Do you have trouble getting transportation to medical appointments?: No Do you have trouble paying your heating and electricity bill?: No Do you have trouble taking care of your child, family member or friend?: No Do you have trouble with day-to-day activities such as bathing, preparing meals, shopping, managing finances, etc.?: No Are you currently unemployed and looking for a job?: No Are you interested in more education?: No Please select the resources that you would like help with: None Currently or been in a relationship where the following occur: no concerns reported THRIVE Score: 0 AUDIT C Alcohol Use Questionnaire (AUDIT-C) 1. How often do you have a drink containing alcohol?: Never 2. How many drinks containing alcohol do you have on a typical day when you are drinking?: 1 or 2 3. How often do you have six or more drinks on one occasion?: Never Total Score: 0 Score Reviewed/Action Taken: Yes PATRICK-7 AMB Questionnaire PATRICK-7 Date PATRICK - 7 assessed: 11/26/23 Feeling nervous, anxious, or on edge: 0 = Not at all Not being able to stop or control worryin = Not at all Worrying too much about different things: 0 = Not at all Trouble relaxin = Not at all Being so restless that it is hard to sit still: 0 = Not at all Becoming easily annoyed or irritable: 0 = Not at all Feeling afraid as if something awful might happen: 0 = Not at all Total PATRICK-7 score (0-4 normal; 5-9 mild; 10-14 moderate; 15-21 severe): 0 Source: Developed by Drs. Wolf Ortez, Otilia Rushing, Jeramie Mccracken and colleagues, with an educational rose from [employer]. PATRICK-7 Assessment Billing PATRICK-7 Assessment Tool: PATRICK-7 Assessment 73572 Review of Systems Const Reports as per HPI Physical exam (Primary Care) Vital Signs: Last Vital Signs Pulse 89 11/26/23 12:55 BP 132/82 11/26/23 12:55 Pulse Ox 97 11/26/23 12:55 Oxygen Delivery Method Room Air 11/26/23 12:55 BMI result Body Mass Index 34.6 Tobacco/Smoking Status: Tobacco use Status Tobacco use date assessed 11/26/23 11/26/23 12:56 Patient Tobacco Use Status Never used Tobacco 11/26/23 12:56 e-Cigarette/Vaping Use Never Used 11/26/23 12:56 Depression Screening Interpretation: Negative Currently or been in a relationship where the following occur: no concerns reported Const General: cooperative Nutritional Appearance: obese Orientation/consciousness: patient oriented x3 Resp Effort & Inspection: normal respiratory effort Auscultation: clear to auscultation bilaterally Cardio Rate: regular rate Rhythm: regular rhythm Heart sounds: S1 normal heart sound present, S2 normal heart sound present and Murmur heart sound present systolic Neuro General: patient oriented x3 Extrem Other: bilat feet: + sensation with use of monofilament, feet intact Psych Appearance: grossly normal Mental Status: mental status grossly normal Speech and movement: Normal speech and movement present Affect: normal affect Attitude: cooperative Thought process: Normal thought process present Thought content: Normal thought content present Insight: Good insight present (Psych) Judgement: Good judgement present (Psych) Results AMB Hemoglobin A1c AMB Hemoglobin A1c 6.6 % Last Edit by Cesar Guzman CMA on 11/26/23 13:43 Immunizations pneumoc 20-yasmin conj-dip cr(PF) 0.5 mL IM syringe Performing Provider: TROY Amaral Performing Location[place] [facility] Administered by: Cesar Guzman CMA on 11/26/23 13:43 Dose Route Admin Location Dispensed Lot Number Expiration Date [facility] 0.5 mL IM Right Deltoid 0.5 mL [id number] 11/14/24 6037-0712-62 [employer] VIS Given Date VIS Provided VIS Publication Date 11/26/23 Single Vaccine 21 Eligibility Eligibility Date Funding Source Not VFC Eligible 11/26/23 Private Results Reviewed Results Reviewed: Laboratory Last Values Hgb A1c (Clinic) 6.6 % (4.0-6.0) H 11/26/23 13:42 Assessment and Plan Assessment & Plan (1) T2DM (type 2 diabetes mellitus): Code(s): E11.9 - Type 2 diabetes mellitus without complications Qualifiers: Diabetes mellitus complication status: with hyperglycemia Diabetes mellitus assisted insulin use: without moth exterminator use Qualified Code(s): E11.65 - Type 2 diabetes mellitus with hyperglycemia Plan: Labs ordered (2) Vitamin D deficiency: Code(s): E55.9 - Vitamin D deficiency, unspecified Plan: Labs ordered (3) B12 deficiency: Code(s): E53.8 - Deficiency of other specified B group vitamins Plan: Trying pt on oral B12 (4) Multinodular thyroid: Code(s): E04.2 - Nontoxic multinodular goiter Plan: US ordered (5) HTN (hypertension): Code(s): I10 - Essential (primary) hypertension Plan: Adding amlodipine 2.5mg (6) [place] (hard of hearing): Code(s): H91.90 - Unspecified hearing loss, unspecified ear Plan The patient agreed to the use of a medical lead for this encounter. Scribed for TROY Ryan by Trina Valadez medical lead, on 11/26/2023 at 03:05 EST. Orders: Orders Complete Blood Count Auto Diff Today E11.9 - Type 2 diabetes mellitus without complications Comprehensive [place]. Panel Fast Today E11.9 - Type 2 diabetes mellitus without complications UA CC w/rflx Micro + Cult Today E11.9 - Type 2 diabetes mellitus without complications US thyroid Today E04.2 - Nontoxic multinodular goiter TSH reflex Free T4 Today E11.9 - Type 2 diabetes mellitus without complications Lipid Panel Today E11.9 - Type 2 diabetes mellitus without complications Vitamin D 25-OH Total Today E55.9 - Vitamin D deficiency, unspecified Pneumococcal 20 Immunization Today Z23 - Encounter for immunization AMB Hemoglobin A1c Today Z13.9 - Encounter for screening, unspecified Referrals Speech and Hearing Referral H91.90 - Unspecified hearing loss, unspecified ear Medications: New mecobalamin (vitamin B12) 1,000 mcg PO DAILY 90 tabs 0RF amlodipine 2.5 mg PO DAILY 90 tabs 0RF Coding Level of Care Code Est Pt Level 3 (96829) Diagnoses Type 2 diabetes mellitus with hyperglycemia, without long-term current use of insulin E11.65 Diabetes mellitus complication status: with hyperglycemia Diabetes mellitus assisted insulin use: without moth exterminator use Vitamin D deficiency E55.9 B12 deficiency E53.8 Multinodular thyroid E04.2 HTN (hypertension) I10 [place] (hard of hearing) H91.90 Additional Codes PATIRCK-7 Assessment Billing - PATRICK-7 Assessment Tool: PATRICK-7 Assessment [id number] ([id number])
== END 2023-11-26 16:59 | disposition home or self-care (01) ==
PROVIDERS: PCP Nurse Practitioner Family; Visit Provider Nurse Practitioner Family
DX: E11.65 Type 2 diabetes mellitus with hyperglycemia (principal); E55.9 Vitamin D deficiency, unspecified; E53.8 Deficiency of other specified B group vitamins; Z23 Encounter for immunization; E04.2 Nontoxic multinodular goiter; I10 Essential (primary) hypertension
CPT/HCPCS: 83036; 90471; 90677; 99213

== ENCOUNTER 2023-12-06 12:02 | Outpatient (REF) | payer OTHER, SELFPAY ==
--- NOTE | ~2023-12-06 | US_ITS ---
EXAMINATION: US THYROID CLINICAL INFORMATION: Nontoxic multinodular goiter. COMPARISON: Ultrasound-guided fine-needle aspiration 12/01/2021. Thyroid ultrasound 05/11/2020. Ultrasound soft tissue head/neck 09/16/2019. TECHNIQUE: Linear transducer barahona-scale and color Doppler examination with attention to the region of the thyroid. FINDINGS: SIZE: Measurements of the solitary right thyroid lobe and nodules are given in sagittal, anteroposterior and transverse dimensions respectively. Right Thyroid Lobe: 5.1 x 2.8 x 2.7 cm, volume 20.2 mL. Previously 5.5 x 2.6 x 2.4 cm, volume 18.0 mL. Parenchyma: The gland echotexture is heterogeneous. Thyroid vascularity is increased. Left Thyroid Lobe: Surgically absent. Isthmus: Surgically absent. Estimated total number of nodules greater than or equal to 1 cm: 1. [place] nodules are described as follows: 1. Location: Right mid. Size: 3.0 x 2.4 x 2.5 cm, volume 9.6 mL. Previously: 2.4 x 2.0 x 2.1 cm, volume 5.3 mL. Nodule characteristics: Composition: Solid (2). Echogenicity: Isoechoic (1). Shape: Not taller than wide (0). Margins: Ill-defined (0). Echogenic Foci: Macrocalcifications (1). ACR TI-RADS total points: 4 ACR TI-RADS category: 4 Significant change in size (>/= 20% in 2 dimensions and minimal increase of 2 mm or 50% or greater increase in volume): Yes Change in features: No Change in ACR TI-RADS risk category: No 2. Location: Right inferior. Size: 0.6 x 0.6 x 0.5 cm, volume 0.09 mL. Previously: New since the previous study. Nodule characteristics: Composition: Solid (2). Echogenicity: Isoechoic (1). Shape: Taller than wide (3). Margins: Smooth (0). Echogenic Foci: Peripheral calcifications (2). ACR TI-RADS total points: 8 ACR TI-RADS category: 5 NODES: No lymphadenopathy is seen in the tissue surrounding the thyroid gland. US/US thyroid IMPRESSION: Right mid pole 3.0 cm nodule meets criteria for tissue sampling, if this has not been previously sampled. ACR TI-RADS RECOMMENDATION REFERENCE: Ultrasound-guided fine-needle aspiration, follow up ultrasound, no further followup. * TR1 (0 point) and TR2 (2 points): No FNA or followup * TR3 (3 points): FNA if more than or equal to 2.5 cm in maximum dimension, follow up ultrasound in 1, 3 and 5 years if 1.5 to 2.4 cm in maximum dimension. * TR4 (4-6 points): FNA if more than or equal to 1.5 cm in maximum dimension, follow up ultrasound in 1, 2, 3 and 5 years if 1 to 1.4 cm in maximum dimension. * TR5 (more than or equal to 7 points): FNA if more than or equal to 1 cm in maximum dimension, follow up ultrasound every year for 5 years if 0.5 to 0.9 cm in maximum dimension. * TR3, TR4 or TR5 nodules that are below the size threshold for follow up receive no followup.
== END 2023-12-06 12:03 | disposition home or self-care (01) ==
LOC: HO.US 12:02
PROVIDERS: PCP Nurse Practitioner Family; Visit Provider Nurse Practitioner Family
DX: E04.2 Nontoxic multinodular goiter (principal)
CPT/HCPCS: 76536

== ENCOUNTER 2024-03-17 13:50 | Outpatient (AMB) | payer OTHER, SELFPAY ==
[2024-03-17 14:24] VITALS: BP 136/84; PULSE 99; TEMP 36.9; O2SAT 98; BMI 34.6
--- NOTE | 2024-03-17 14:24 | AM.OFFWIN_ITS ---
Intake Vital Signs 03/17/24 14:24 Height 4 ft 9 in Weight 72.575 kg BMI 34.6 BP 136/84 Blood Pressure Location Rt brachial Position Sitting Pulse 99 Pulse Source Pulse Oximeter Temp 98.5 F Temp Source Temporal Artery Scan Pulse Oximetry (%) 98 Oxygen Delivery Method Room Air Intake Visit Reasons: EP RT knee pain Intake Note: pt is here for right knee pain after eliz Patient Tobacco Use Status: Never used Tobacco Allergies No Known Allergies [No Known Allergies*] Allergy (Verified 03/17/24 14:24) Do you need a note to return to daycare/school/sports/work: No HPI EP RT knee pain HPI Details Patient presents approximately 1 week of knee pain after moving wrong d uring a Eliz class. She has tried topical salve and knee sleeve with little relief. She points to the medial knee as area of pain. She has no history of surgery or injury to this knee. She has not tried any OTC NSAIDs as she does not like to take more pills than her prescribed medications. [facility] Medical History Multinodular thyroid Hypothyroidism Vitamin D deficiency T2DM (type 2 diabetes mellitus) Osteoporosis Surgical History Hx of thyroidectomy History of surgery on wrist Hx of cholecystectomy Family History Father Emphysema of lung Mother Myocardial infarction Hypertension Cardiovascular disease Social History [facility] Patient Tobacco Use Status: Never used Tobacco e-Cigarette/Vaping Use: Never Used Current occupational status: retired Cognitive needs: No Hearing needs: No Vision needs: No Review of Systems Const Reports as per HPI and Reports no additional complaints Musc Reports no additional complaints and Reports as per HPI Skin/Breast Denies lesions Neuro Reports no additional complaints and Reports as per HPI Physical Exam Vital Signs: Last Vital Signs Temp 98.5 F 03/17/24 14:24 Pulse 99 03/17/24 14:24 BP 136/84 03/17/24 14:24 Pulse Ox 98 07/01/24 14:24 Oxygen Delivery Method Room Air 07/01/24 14:24 BMI result Body Mass Index 34.6 Const General: cooperative, comfortable and no acute distress Orientation/consciousness: patient oriented x3 Resp Effort & Inspection: normal respiratory effort Auscultation: clear to auscultation bilaterally Cardio Rate: regular rate Rhythm: regular rhythm Heart sounds: S1 normal heart sound present and S2 normal heart sound present Neuro General: patient oriented x3 Extrem Right lower extremity: normal to inspection, full ROM, normal capillary refill and knee Details: tenderness Location: of the medial joint line, normal ROM, knee ligament exam normal and Sonya's Test Details: positive medially (Mildly positive); no swelling and no unusual warmth; no edema Results Reviewed Results Reviewed: X-ray of the right knee contemporaneously read by me without acute finding. Small amount of DJD will report results if different from Radiology. Assessment & Plan Assessment & Plan (1) Right knee sprain: Code(s): S83.91XA - Sprain of unspecified site of right knee, initial encounter Qualifiers: Encounter type: initial encounter Involved ligament of knee: other ligament Qualified Code(s): S83.8X1A - Sprain of other specified parts of right knee, initial encounter Plan: Advised patient rest ice elevate and compress as much as possible. She would like to try Voltaren gel which I will send a prescription for advised as available [id number]. If this is not helpful she should consider t.i.d. Advil or b.i.d. alleve. Can return to activities as tolerated. Follow up with PCP if not improving. Orders: Orders XR knee RT 4V 03/17/24 M25.561 - Pain in right knee Medications: New diclofenac sodium 1% (Voltaren Arthritis Pain) apply to single knee, ankle, foot; for foot includes sole/toes/top of foot 4 grams topical BID PRN 100 grams 0RF knee pain Coding Level of Care Code Est Pt Level 4 (52147) Diagnoses Sprain of other ligament of right knee, initial encounter S83.8X1A Encounter type: initial encounter Involved ligament of knee: other ligament
== END 2024-03-17 15:49 | disposition home or self-care (01) ==
PROVIDERS: PCP Nurse Practitioner Family; Visit Provider Physician Assistant
DX: S83.8X1A Sprain of other specified parts of right knee, initial encounter (principal)
CPT/HCPCS: 99214

== ENCOUNTER 2024-03-17 14:44 | Outpatient (REF) | payer OTHER, SELFPAY ==
--- NOTE | ~2024-03-17 | XR_ITS ---
EXAMINATION: XR KNEE, RIGHT CLINICAL INFORMATION: Right knee pain after doing Eliz COMPARISON: None available. TECHNIQUE: Four views of the right knee. FINDINGS: Some mild degenerative changes are present with some minimal narrowing of the medial compartment and patellofemoral compartment. Small osteophyte arising from the superior pole of the posterior patella along with some mild enthesopathy at the insertion of the quadriceps tendon. No significant joint effusion seen. No fractures or dislocations XR/XR knee RT 4V IMPRESSION: Mild degenerative changes as described above. No evidence of a traumatic osseous injury.
== END 2024-03-17 14:45 | disposition home or self-care (01) ==
LOC: HO.HMGCX 14:44
PROVIDERS: PCP Nurse Practitioner Family; Visit Provider Physician Assistant
DX: M25.561 Pain in right knee (principal)
CPT/HCPCS: 73564

== ENCOUNTER 2024-06-03 11:10 | Outpatient (AMB) | payer OTHER, SELFPAY ==
[2024-06-03 11:20] VITALS: BP 122/70; PULSE 95; TEMP 37.1; O2SAT 96; BMI 32.9
--- NOTE | 2024-06-03 11:20 | AM.OFFWIN_ITS ---
Intake Vital Signs 3 06/03/24 11:20 Height 4 ft 9 in Weight 152 lb BMI 32.9 BP 122/70 Blood Pressure Location Rt brachial Position Sitting Pulse 95 Pulse Source Pulse Oximeter Temp 98.8 F Temp Source Oral Pulse Oximetry (%) 96 Oxygen Delivery Method Room Air Intake Visit Reasons: EP RT knee pain Intake Note: pt c/o RT knee pain. Ongoing since March Patient Tobacco Use Status: Never used Tobacco Allergies No Known Allergies [No Known Allergies*] Allergy (Verified 06/03/24 11:20) Medication List - Last Reconciled 06/03/24 by Ori Dc MD alendronate 70 mg PO QWEEK alprazolam 0.5 mg PO BID PRN 30 days amlodipine 2.5 mg PO DAILY aspirin 1 tab PO DAILY atorvastatin 20 mg PO DAILY blood-glucose meter (FreeStyle Lite Meter kit) Free style Lite device check sugar 2 times a day calcium carbonate-vitamin D3 600 mg-12.5 mcg (500 unit) (Calcium 600 with Vitamin D3) 1 cap PO BID 30 days cyanocobalamin (vitamin B-12) 1,000 mcg IM .[id number] 90 days diclofenac sodium 1% (Voltaren Arthritis Pain) 4 grams topical BID PRN duloxetine 30 mg PO DAILY 90 days ezetimibe 10 mg PO DAILY 90 days fenofibrate nanocrystallized 145 mg PO DAILY 90 days ferrous sulfate 325 mg PO BID fluoxetine 40 mg PO DAILY FreeStyle Lite Strips (blood sugar diagnostic) Use to check blood sugar twice daily, fasting and a random blood sugar during the day. NS irbesartan 150 mg PO DAILY 90 days lancets Use to check blood sugar twice daily, fasting and a random blood sugar during the day. levothyroxine 50 mcg PO QAM mecobalamin (vitamin B12) 1,000 mcg PO DAILY metformin 1,000 mg PO BID omeprazole 20 mg PO BID pen needle, diabetic (BD Ultra-Fine Micro Pen Needle) Once a week with Ozempic quetiapine 200 mg PO BEDTIME semaglutide (Ozempic) 0.25 mg (0.368 mL) subcut QWEEK 30 days zolpidem ER 12.5 mg PO BEDTIME PRN Do you need a note to return to daycare/school/sports/work: No HPI EP RT knee pain 2 HPI0 Details Patient is 73-year-old female came in today to be evaluated for right knee pain Patient is active and like doing Eliz classes Patient says that the knee has been hurting for a while She came here before as well and was given local cream Patient is diabetic with slightly compromised kidney function I have ordered x-ray of the knee and a referral to orthopedic placed for further management She is wearing knee brace which is helping I would recommend to avoid Eliz classes for few days PFSH Medical History Multinodular thyroid Hypothyroidism Vitamin D deficiency T2DM (type 2 diabetes mellitus) Osteoporosis Surgical History Hx of thyroidectomy History of surgery on wrist Hx of cholecystectomy Family History Father Emphysema of lung Mother Myocardial infarction Hypertension Cardiovascular disease Social History [facility] Patient Tobacco Use Status: Never used Tobacco e-Cigarette/Vaping Use: Never Used Current occupational status: retired Cognitive needs: No Hearing needs: No Vision needs: No Review of Systems Const All systems reviewed & are unremarkable except as noted in HPI and below Physical Exam Vital Signs: Last Vital Signs Temp 98.8 F 06/03/24 11:20 Pulse 95 06/03/24 11:20 BP 122/70 06/03/24 11:20 Pulse Ox 96 06/03/24 11:20 Oxygen Delivery Method Room Air 06/03/24 11:20 BMI result Body Mass Index 32.9 Const General: no acute distress Orientation/consciousness: patient oriented x3 Eyes General: appearance normal, both eyes and all related structures Resp Effort & Inspection: normal respiratory effort and able to speak in complete sentences Neuro General: patient oriented x3 Extrem Knee images: 2 1. Site of pain, over medial longitudinal ligament, no swelling, range of motion intact Psych Mental Status: mental status grossly normal Assessment & Plan Assessment & Plan (1) Acute pain of right knee: Code(s): M25.561 - Pain in right knee Plan Patient is 73-year-old female came in today to be evaluated for right knee pain Patient is active and like doing Eliz classes Patient says that the knee has been hurting for a while She came here before as well and was given local cream Patient is diabetic with slightly compromised kidney function I have ordered x-ray of the knee and a referral to orthopedic placed for further management She is wearing knee brace which is helping I would recommend to avoid Eliz classes for few days Orders: Orders 2 XR knee RT 2V Today M25.561 - Pain in right knee Referrals 2 Orthopedics Referral M25.561 - Pain in right knee Coding Level of Care Code Est Pt Level 3 (62019) Diagnoses Acute pain of right knee M25.561
== END 2024-06-03 11:49 | disposition home or self-care (01) ==
PROVIDERS: PCP Nurse Practitioner Family; Visit Provider Internal Medicine
DX: M25.561 Pain in right knee (principal)

== ENCOUNTER → 2024-06-03 11:10 | Outpatient (BNVA) | payer OTHER, SELFPAY | PROVIDERS: PCP Nurse Practitioner Family ==

== ENCOUNTER 2024-06-03 11:36 | Outpatient (REF) | payer OTHER, SELFPAY ==
--- NOTE | ~2024-06-03 | XR_ITS ---
EXAMINATION: XR KNEE, RIGHT CLINICAL INFORMATION: M25.561 - Pain in right knee COMPARISON: 03/17/2024. TECHNIQUE: Four views of the right knee. FINDINGS: No fracture, dislocation, or suspicious bone lesion. Normal alignment. Mild osteoarthritis in all 3 compartments with gross preservation of joint space. Extremely subtle chondrocalcinosis present in the medial and lateral compartments. There is a moderate sized suprapatellar joint effusion. There is no focal soft tissue abnormality. XR/XR knee RT 4V IMPRESSION: 1. Moderate sized suprapatellar joint effusion. 2. Mild chondrocalcinosis suggesting CPPD arthropathy. 3. Mild arthritic changes involving all 3 compartments. Gross preservation of joint space. Electronically signed by: Marin Schwab MD 08/12/2024 12:23 PM [facility]
== END 2024-06-03 11:37 | disposition home or self-care (01) ==
LOC: HO.HMGCX 11:36
PROVIDERS: PCP Nurse Practitioner Family; Visit Provider Internal Medicine
DX: M25.561 Pain in right knee (principal)
CPT/HCPCS: 73564; 99212

== ENCOUNTER → 2024-06-03 11:40 | Outpatient (BNV) | payer OTHER, SELFPAY | PROVIDERS: PCP Nurse Practitioner Family; Visit Provider Radiology Diagnostic Radiology | DX: M25.461 Effusion, right knee (principal) | CPT/HCPCS: 73564 ==

== ENCOUNTER 2024-06-11 11:31 | Outpatient (AMB) | payer OTHER, SELFPAY ==
[2024-06-11 11:32] VITALS: BP 128/74; PULSE 96; O2SAT 97; BMI 32.7
--- NOTE | 2024-06-11 11:32 | MHC.PC.OV ---
Vital Signs 06/11/24 11:32 Height 4 ft 9 in Weight 151 lb BMI 32.7 BP 128/74 Blood Pressure Location Rt brachial Position Sitting Pulse 96 Pulse Source Pulse Oximeter Pulse Oximetry (%) 97 Intake Visit Reasons: hearing loss, RT knee Intake Note: pt is here for hearing loss, right knee pain Emergency Medicine Specialist Required: No Accompanied by: Self / Same As Patient Allergies No Known Allergies [No Known Allergies*] Allergy (Verified 06/11/24 11:32) Medication List - Last Reconciled 06/11/24 by SARITHA AmaralP- alendronate 70 mg PO QWEEK alprazolam 0.5 mg PO BID PRN 30 days amlodipine 2.5 mg PO DAILY aspirin 1 tab PO DAILY atorvastatin 20 mg PO DAILY blood-glucose meter (FreeStyle Lite Meter kit) Free style Lite device check sugar 2 times a day calcium carbonate-vitamin D3 600 mg-12.5 mcg (500 unit) (Calcium 600 with Vitamin D3) 1 cap PO BID 30 days cyanocobalamin (vitamin B-12) 1,000 mcg IM .[id number] 90 days diclofenac sodium 1% (Voltaren Arthritis Pain) 4 grams topical BID PRN duloxetine 30 mg PO DAILY 90 days ezetimibe 10 mg PO DAILY 90 days fenofibrate nanocrystallized 145 mg PO DAILY 90 days ferrous sulfate 325 mg PO BID fluoxetine 40 mg PO DAILY FreeStyle Lite Strips (blood sugar diagnostic) Use to check blood sugar twice daily, fasting and a random blood sugar during the day. NS irbesartan 150 mg PO DAILY 90 days lancets Use to check blood sugar twice daily, fasting and a random blood sugar during the day. levothyroxine 50 mcg PO QAM mecobalamin (vitamin B12) 1,000 mcg PO DAILY metformin 500 mg PO BID 90 days omeprazole 20 mg PO BID pen needle, diabetic (BD Ultra-Fine Micro Pen Needle) Once a week with Ozempic quetiapine 200 mg PO BEDTIME semaglutide (Ozempic) 0.5 mg (0.736 mL) subcut QWEEK 30 days zolpidem ER 12.5 mg PO BEDTIME PRN Tobacco use date assessed: 11/26/23 Fall risk assessment: No Falls in past year Last assessed Fall Risk: 06/11/24 Dental Screening Dental Screen Date: 11/26/23 HPI hearing loss, RT knee HPI Details Rt knee pain, XR performed on 06/03/2024, awaiting results. Patient is also diabetic. She is due for a microalbumin. She is already on a statin and an ARB. Pt reports her eye exam is up to date. Denies any polyuria, polydipsia, or neuropathy. Pt understands the s/s of hypoglycemia and how to correct it. A1c today was 5.8. I will decrease her metformin and increase her ozempic. Nodular goiter: Right nodular goiter noted with multiple nodules. Previous thyroid ultrasound shows a 3.0 cm right mid pole nodule, which was previously biopsied by endo and found to be benign. We will continue to monitor thyroid via ultrasound. [facility] Medical History Multinodular thyroid Hypothyroidism Vitamin D deficiency T2DM (type 2 diabetes mellitus) Osteoporosis Surgical History Hx of thyroidectomy History of surgery on wrist Hx of cholecystectomy Family History Father Emphysema of lung Mother Myocardial infarction Hypertension Cardiovascular disease Social History Housing: Condominium Patient Tobacco Use Status: Never used Tobacco e-Cigarette/Vaping Use: Never Used Current occupational status: retired Cognitive needs: No Hearing needs: No Vision needs: No Questionnaire Thrive Questionnaire Date Thrive assessed: 11/26/23 PATRICK-7 AMB Questionnaire PATRICK-7 Date PATRICK - 7 assessed: 11/26/23 Source: Developed by Drs. Wolf Ortez, Otilia Rushing, Jeramie Mccracken and colleagues, with an educational rose from [employer]. Physical exam (Primary Care) Vital Signs: Last Vital Signs Pulse 96 06/11/24 11:32 BP 128/74 06/11/24 11:32 Pulse Ox 97 06/11/24 11:32 BMI result Body Mass Index 32.7 Tobacco/Smoking Status: Tobacco use Status Tobacco use date assessed 11/26/23 06/11/24 11:33 Patient Tobacco Use Status Never used Tobacco 06/11/24 11:33 e-Cigarette/Vaping Use Never Used 06/11/24 11:33 Thrive Assessment: Date of Thrive Assessment Date Thrive assessed 11/26/23 06/11/24 11:33 Const General: cooperative Nutritional Appearance: average body habitus Resp Effort & Inspection: normal respiratory effort Auscultation: clear to auscultation bilaterally Cardio Rate: regular rate Rhythm: regular rhythm Heart sounds: S1 normal heart sound present, S2 normal heart sound present and Murmur heart sound present systolic Extrem Other: feet are intact bilat, + sensation bilat with use of monofilament. Psych Appearance: grossly normal Mental Status: mental status grossly normal Speech and movement: Normal speech and movement present Affect: normal affect Attitude: cooperative Thought process: Normal thought process present Thought content: Normal thought content present Insight: Good insight present (Psych) Judgement: Good judgement present (Psych) Assessment and Plan Assessment & Plan (1) T2DM (type 2 diabetes mellitus): Code(s): E11.9 - Type 2 diabetes mellitus without complications Qualifiers: Diabetes mellitus complication status: with hyperglycemia Diabetes mellitus terminal supervisor insulin use: without correction use Qualified Code(s): E11.65 - Type 2 diabetes mellitus with hyperglycemia Plan: controlled currently, decreasing metformin from 1000mg bid to 500mg bid, increasing ozempic from .25mg to .5mg (2) B12 deficiency: Code(s): E53.8 - Deficiency of other specified B group vitamins Plan: will check levels (3) Low TSH level: Code(s): R79.89 - Other specified abnormal findings of blood chemistry Plan: continued monitoring (4) Osteoporosis: Code(s): M81.0 - Age-related osteoporosis without current pathological fracture Qualifiers: Osteoporosis type: unspecified Presence of current pathological fracture: unspecified Qualified Code(s): M81.0 - Age-related osteoporosis without current pathological fracture Plan: bone density ordered (5) Multinodular thyroid: Code(s): E04.2 - Nontoxic multinodular goiter Plan: continued monitoring with US Orders: Orders Comprehensive [place]. Panel Fast Today E11.65 - Type 2 diabetes mellitus with hyperglycemia TSH reflex Free T4 Today E11.65 - Type 2 diabetes mellitus with hyperglycemia UA CC w/rflx Micro + Cult Today E11.65 - Type 2 diabetes mellitus with hyperglycemia US thyroid 6 Months E04.2 - Nontoxic multinodular goiter Complete Blood Count Auto Diff Today E11.65 - Type 2 diabetes mellitus with hyperglycemia Lipid Panel Today E11.65 - Type 2 diabetes mellitus with hyperglycemia Microalbumin, Random (w Creat) Today E11.65 - Type 2 diabetes mellitus with hyperglycemia Vitamin B12 and Folate Today E53.8 - Deficiency of other specified B group vitamins XR DEXA axial skeleton Today M81.0 - Age-related osteoporosis without current pathological fracture Medications: Changed From semaglutide (Ozempic) for 4 weeks 0.25 mg (0.368 mL) subcut QWEEK 30 days 1.84 mL 1RF To semaglutide (Ozempic) for 4 weeks 0.5 mg (0.736 mL) subcut QWEEK 30 days 3.68 mL 1RF From metformin 1,000 mg PO BID 180 tabs 1RF To metformin 500 mg PO BID 90 days 180 tabs 1RF Coding Level of Care Code Est Pt Level 3 (40827) Diagnoses Type 2 diabetes mellitus with hyperglycemia, without long-term current use of insulin E11.65 Diabetes mellitus complication status: with hyperglycemia Diabetes mellitus correction insulin use: without correction use B12 deficiency E53.8 Low TSH level R79.89 Osteoporosis, unspecified osteoporosis type, unspecified pathological fracture presence M81.0 Osteoporosis type: unspecified Presence of current pathological fracture: unspecified Multinodular thyroid E04.2
== END 2024-06-11 12:15 | disposition home or self-care (01) ==
PROVIDERS: PCP Nurse Practitioner Family; Visit Provider Nurse Practitioner Family
DX: E11.65 Type 2 diabetes mellitus with hyperglycemia (principal); E53.8 Deficiency of other specified B group vitamins; R79.89 Other specified abnormal findings of blood chemistry; M81.0 Age-related osteoporosis without current pathological fracture; E04.2 Nontoxic multinodular goiter

== ENCOUNTER → 2024-06-11 11:31 | Outpatient (BNVA) | payer OTHER, SELFPAY | PROVIDERS: PCP Nurse Practitioner Family; Visit Provider Nurse Practitioner Family | DX: E11.65 Type 2 diabetes mellitus with hyperglycemia (principal); E53.8 Deficiency of other specified B group vitamins; R79.89 Other specified abnormal findings of blood chemistry; M81.0 Age-related osteoporosis without current pathological fracture; E04.2 Nontoxic multinodular goiter | CPT/HCPCS: 99212 ==

== ENCOUNTER 2024-06-17 13:49 | Outpatient (AMB) | payer OTHER, SELFPAY ==
[2024-06-17 13:59] VITALS: BMI 32.7
--- NOTE | 2024-06-17 13:59 | MHC.OFFVIS ---
Vital Signs 06/17/24 13:59 Height 4 ft 9 in Weight 151 lb BMI 32.7 Intake Visit Reasons: Right knee pain and giving way Intake Note: Consuelo is 73 year old female who presents with complaints of progressively worsening right knee pain and giving way. The patient states that she injured her right knee approximately 6 months ago while taking a [employer] exercise class. The patient states that she twisted her knee and had acute onset of pain along the medial aspect of her knee. She denies any pain in her right knee prior to that injury. Since that time her symptoms have gotten progressively worse. At this point her right knee pain is interfering with her activities of daily living and her ability to sleep well through the night. She has failed the last 6 weeks of conservative treatment. She has been to physical therapy which aggravated her symptoms. She has also tried Tylenol, anti-inflammatory medicines and Voltaren topical gel which gave her minimal relief. She has been wearing a knee brace which gives her only mild relief. She states that her right knee will give out several times per day. Allergies No Known Allergies [No Known Allergies*] Allergy (Verified 06/17/24 14:04) Medication List - Last Reconciled 06/17/24 by Robe Galdamez MD alendronate 70 mg PO QWEEK alprazolam 0.5 mg PO BID PRN 30 days amlodipine 2.5 mg PO DAILY aspirin 1 tab PO DAILY atorvastatin 20 mg PO DAILY blood-glucose meter (FreeStyle Lite Meter kit) Free style Lite device check sugar 2 times a day calcium carbonate-vitamin D3 600 mg-12.5 mcg (500 unit) (Calcium 600 with Vitamin D3) 1 cap PO BID 30 days cyanocobalamin (vitamin B-12) 1,000 mcg IM .[id number] 90 days diclofenac sodium 1% (Voltaren Arthritis Pain) 4 grams topical BID PRN duloxetine 30 mg PO DAILY 90 days ezetimibe 10 mg PO DAILY 90 days fenofibrate nanocrystallized 145 mg PO DAILY 90 days ferrous sulfate 325 mg PO BID fluoxetine 40 mg PO DAILY FreeStyle Lite Strips (blood sugar diagnostic) Use to check blood sugar twice daily, fasting and a random blood sugar during the day. NS irbesartan 150 mg PO DAILY 90 days lancets Use to check blood sugar twice daily, fasting and a random blood sugar during the day. levothyroxine 50 mcg PO QAM mecobalamin (vitamin B12) 1,000 mcg PO DAILY metformin 500 mg PO BID 90 days omeprazole 20 mg PO BID pen needle, diabetic (BD Ultra-Fine Micro Pen Needle) Once a week with Ozempic quetiapine 200 mg PO BEDTIME semaglutide (Ozempic) 0.5 mg (0.736 mL) subcut QWEEK 30 days zolpidem ER 12.5 mg PO BEDTIME PRN PFSH Medical History Multinodular thyroid Hypothyroidism Vitamin D deficiency T2DM (type 2 diabetes mellitus) Osteoporosis Surgical History Hx of thyroidectomy History of surgery on wrist Hx of cholecystectomy Family History Father Emphysema of lung Mother Myocardial infarction Hypertension Cardiovascular disease Social History Housing: Condominium Patient Tobacco Use Status: Never used Tobacco e-Cigarette/Vaping Use: Never Used Current occupational status: retired Cognitive needs: No Hearing needs: No Vision needs: No Physical Exam Vital Signs: BMI result Body Mass Index 32.7 Const Other: Well-nourished well-developed very friendly female awake alert and oriented x3 in no acute distress Extrem Other: Bilateral lower extremity examination shows good capillary refill, no skin lesions noted, normal sensation light touch Right knee examination shows a minimal effusion, mild crepitus with range of motion, tenderness along her medial joint line, positive Sonya's test, no instability Results Reviewed Results Reviewed: Standing full weight-bearing x-rays of the patient's right knee show mild diffuse joint space narrowing, no acute bony abnormalities Assessment & Plan Assessment & Plan (1) Right knee pain: Code(s): M25.561 - Pain in right knee Category: Medical Plan Ms. Bauer presents with progressively worsening right knee pain and mechanical symptoms most likely due to a tear of her medial meniscus. Thus, I will send the patient for an MRI of her right knee for further evaluation. I will see her back once the MRI is completed to discuss the findings and treatment options. Feel free to call me at any time should questions regarding her orthopedic management arise. Thank you very much for asking me to see this very friendly patient. I spent 20 minutes in reviewing the patient's records and imaging studies, seeing the patient and documenting in the medical record. Orders: Orders MR knee RT wo con Today M25.561 - Pain in right knee Coding Level of Care Code New Pt Level 3 (22151) Complex EM visit Add On G2211 Diagnoses Right knee pain M25.561
== END 2024-06-17 14:14 | disposition home or self-care (01) ==
PROVIDERS: PCP Nurse Practitioner Family; Visit Provider Orthopaedic Surgery
DX: M25.561 Pain in right knee (principal)
CPT/HCPCS: 99203

== ENCOUNTER → 2024-06-17 13:49 | Outpatient (BNVA) | payer OTHER, SELFPAY | PROVIDERS: PCP Nurse Practitioner Family; Visit Provider Orthopaedic Surgery | DX: M25.561 Pain in right knee (principal) | CPT/HCPCS: 99202 ==

== ENCOUNTER 2024-07-11 09:39 | Outpatient (REF) | payer OTHER, SELFPAY ==
--- NOTE | ~2024-07-11 | MR_ITS ---
EXAMINATION: MR KNEE WITHOUT CONTRAST, RIGHT CLINICAL INFORMATION: Pain in the right knee. COMPARISON: X-ray of the right knee May 2024. TECHNIQUE: MRI of the knee without contrast was performed using routine sequences on a high-field scanner. FINDINGS: MENISCI: Medial Meniscus: There is abnormal signal throughout much of the lateral two-thirds portion of the posterior meniscus extending into the meniscal body. There is irregularity along the free edge in the posterior horn. There is blunting of the body of the meniscus with a partially detached meniscal fragment extending into the meniscal femoral recess. Anterior horn intact. Findings indicative of complex tearing of the posterior horn and body of the meniscus with a partially detached meniscal flap. Lateral Meniscus: Intact LIGAMENTS: Cruciate: Intact Collateral: Intact EXTENSOR MECHANISM: Intact ARTICULAR CARTILAGE/BONE: Patellofemoral Compartment: There is mild cartilage heterogeneity in the sulcus of the trochlea and minimal surface irregularity of the medial facet and median ridge of the patella. Overall mild patellofemoral arthrosis. Medial Compartment: There are small marginal osteophytes. There is nonuniform up to high-grade cartilage loss along the posterior aspect of the compartment involving both the femoral and tibial articular surfaces. Overall [id number] arthrosis. Lateral Compartment: Normal JOINT FLUID AND BURSAE: There is a mild joint effusion and trace Shell's cyst. MR/MR knee RT wo con IMPRESSION: 1. Complex tear of the posterior horn and body of the medial meniscus with a partially detached meniscal fragment. 2. Osteoarthritis. Electronically signed by: Reid Mujcia MD 07/28/2024 06:31 AM [facility]ESS
== END 2024-07-11 09:40 | disposition home or self-care (01) ==
LOC: HO.MRI 09:39
PROVIDERS: PCP Nurse Practitioner Family; Visit Provider Orthopaedic Surgery
DX: M25.561 Pain in right knee (principal)
CPT/HCPCS: 73721

== ENCOUNTER 2024-07-14 09:29 | Outpatient (REF) | payer OTHER, SELFPAY ==
[2024-07-14 13:50] LABS: MANUAL DIFF FLAG NO
[2024-07-14 14:01] LABS: Basophils Absolute Auto 0.1 X10*3/uL (0.0-0.2); Basophils Percent Auto 0.7 % (0-2); Eosinophils Absolute Auto 0.3 X10*3/uL (0.0-0.4); Eosinophils Percent Auto 4.4 % (0-4); Hematocrit 32.6 % (37.0-47.0); Hemoglobin 10.3 g/dl (12.0-16.0); Imm Gran Abs Auto 0.02 X10*3/uL (0.00-0.03); Imm Gran Pct Auto 0.3 % (0.0-0.4); Lymphocytes Absolute Auto 2.3 X10*3/uL (1.2-4.9); Lymphocytes Percent Auto 31.3 % (20-40); Mean Corpuscular HGB Conc 31.6 g/dl (31.0-35.0); Mean Corpuscular Hemoglobin 25.6 pg (27.0-33.0); Mean Corpuscular Volume 81.1 fL (80.0-98.0); Monocytes Absolute Auto 0.4 X10*3/uL (0.1-1.2); Monocytes Percent Auto 5.8 % (2-11); Neutrophils Absolute Auto 4.3 x10*3/uL (2.0-8.3); Neutrophils Percent Auto 57.5 % (45-73); Platelet Count 432 X10*3/uL (160-400); Red Blood Count 4.02 X10*6/uL (4.20-5.50); Red Cell Distribution Width 13.7 % (11.0-16.0); White Blood Count 7.4 X10*3/uL (4.8-10.8)
[2024-07-14 14:18] LABS: Appearance Urine Clear; Color Urine Yellow; Glucose Urine UA Negative (Negative); Leukocyte Esterase Urine Negative (Negative); Nitrite Urine Negative (Negative); PH 5.5 (5.0-9.0); Specific Gravity - Urine 1.025 (1.005-1.025); Urine Blood Negative (Negative); Urine Ketones Negative (Negative); Urine Protein Negative (Neg-Trace)
[2024-07-14 14:25] LABS: Alanine Aminotransferase 12 U/L (0-31); Albumin Level 4.2 g/dL (3.5-5.0); Alkaline Phosphatase 37 U/L (39-117); Anion Gap 16 (12-20); Aspartate Amino Transferase 20 U/L (5-31); Bilirubin Total 0.3 mg/dL (0.0-1.0); Blood Urea Nitrogen 32 mg/dL (9-16); Calcium 9.5 mg/dL (8.4-10.2); Carbon Dioxide 21 mmol/L (22-29); Chloride 104 mmol/L (96-108); Cholesterol 159 mg/dL (<200); Estimated Glomerular Filt Rate 39; Glucose Fasting 120 mg/dL (60-99); HDL Cholesterol 66 mg/dL (>40); LDL Cholesterol Calculated 74 mg/dL (<100); Potassium 4.5 mmol/L (3.3-5.1); Sodium 136 mmol/L (135-145); Total Protein 7.1 g/dL (6.5-8.0); Triglycerides 96 mg/dL (<150)
[2024-07-14 14:31] LABS: TSH reflex Free T4 0.37 uIU/mL (0.32-4.0)
[2024-07-14 14:42] LABS: Creatinine Urine 122.57 mg/dL; Microalbumin Urine < 5.0 mg/L
[2024-07-14 14:44] LABS: Folate 7.2 ng/mL (> or = 4.0); Vitamin B12 555 pg/mL (200-900)
== END 2024-07-14 09:30 | disposition home or self-care (01) ==
LOC: HO.HMGCLDS 09:29
PROVIDERS: PCP Nurse Practitioner Family; Visit Provider Nurse Practitioner Family
DX: E11.65 Type 2 diabetes mellitus with hyperglycemia (principal); E53.8 Deficiency of other specified B group vitamins
CPT/HCPCS: 36415; 80053; 80061; 81003; 82043; 82570; 82607; 82746; 84443; 85025

== ENCOUNTER 2024-08-08 15:08 | Outpatient (AMB) | payer OTHER, SELFPAY ==
--- NOTE | 2024-08-08 15:15 | HO.NEPHOV ---
Vital Signs 08/08/24 15:18 Height 4 ft 9 in Weight 149 lb 4 oz BMI 32.3 BP 130/70 Blood Pressure Location Lt brachial Position Sitting Pulse 94 Pulse Source Pulse Oximeter Pulse Oximetry (%) 102 H Oxygen Delivery Method Room Air Intake Visit Reasons: Disorder of kidney and ureter, unspecified/ Conf Proof Sorter Required: Yes Proof Sorter Language: Hand Turner Services: Proof Sorter Present Proof Sorter Name: Eliud Meza [id number] Accompanied by: Spouse Allergies No Known Allergies [No Known Allergies*] Allergy (Verified 08/08/24 15:17) HPI Comments Details: I had the privilege of seeing Consuelo in consultation for recent rise in serum creatinine on a back drop of CKD and hypertension. She has no DM, retinopathy or neuropathy. She has longstanding HTN and is on ARB as well as calcium channel lalo. She denies PAD, CAD, carotid stenosis, CVA, CHF , excessive intake of NSAID's, new bone or back pain, epistaxis, renal calculus, sinusitis, new joint swelling, urinary complaints or pedal edema. She has no nausea, vomiting, diarrhea, SOB or any new systemic complaints. Her recent serum creatinine has been 1.33. She has not had any proteinuria. She takes bisphosphonates. She feels well [facility] Medical History (Updated 08/14/24 @ 13:42 by Pranay Kline MD) Decreased renal function Multinodular thyroid Hypothyroidism Vitamin D deficiency T2DM (type 2 diabetes mellitus) Osteoporosis Surgical History Hx of thyroidectomy History of surgery on wrist Hx of cholecystectomy Family History Father Emphysema of lung Mother Myocardial infarction Hypertension Cardiovascular disease Social History Housing: Condominium Patient Tobacco Use Status: Never used Tobacco e-Cigarette/Vaping Use: Never Used Current occupational status: retired Cognitive needs: No Hearing needs: No Vision needs: No Review of Systems Const All systems reviewed & are unremarkable except as noted in HPI and below Physical Exam Vital Signs: Last Vital Signs Pulse 94 08/08/24 15:18 BP 130/70 08/08/24 15:18 Pulse Ox 102 H 08/08/24 15:18 Oxygen Delivery Method Room Air 08/08/24 15:18 BMI result Body Mass Index 32.3 Const General: comfortable and no acute distress Orientation/consciousness: patient oriented x3 HEENT Head: Yes normocephalic Mouth: Normal oral and palatal mucosa present Eyes EOM: EOMs intact bilaterally Neck Neck: Yes supple Resp Auscultation: clear to auscultation bilaterally Cardio Jugular venous distension: no JVD Rate: regular rate GI Palpation (GI): Soft to palpation Auscultation: normal bowel sounds General: Yes no CVA tenderness Back/Spine/Pelvis Back: no CVA tenderness Skin General skin exam: no rashes or lesions noted Neuro General: patient oriented x3 and moves all extremities Extrem General: Yes no pedal edema Results Reviewed Nephrology Results: Hgb 10.3 g/dl (12.0-16.0) L 07/14/24 WBC 7.4 X10*3/uL (4.8-10.8) 07/14/24 Plt Count 432 X10*3/uL (160-400) H 07/14/24 Sodium 136 mmol/L (135-145) 07/14/24 Potassium 4.5 mmol/L (3.3-5.1) 07/14/24 Chloride 104 mmol/L (96-108) 07/14/24 Carbon Dioxide 21 mmol/L (22-29) L 07/14/24 BUN 32 mg/dL (9-16) H 07/14/24 Creatinine 1.33 mg/dL (0.5-1.4) 07/14/24 Calcium 9.5 mg/dL (8.4-10.2) 07/14/24 Urine Protein Negative mg/dL (Neg-Trace) 07/14/24 Urine Creatinine 122.57 mg/dL 07/14/24 Assessment & Plan Assessment & Plan (1) FAZAL (acute kidney injury): Code(s): N17.9 - Acute kidney failure, unspecified Category: Medical (2) CKD stage 3a, GFR 45-59 ml/min: Code(s): N18.31 - Chronic kidney disease, stage 3a Category: Medical (3) HTN (hypertension): Code(s): I10 - Essential (primary) hypertension Category: Medical Qualifiers: Hypertension type: primary hypertension Qualified Code(s): I10 - Essential (primary) hypertension Plan Consuelo most likely has CKD 3 with rise in serum creatinine lately, likely due to vascular disease. She is on ARB. Her UO is good. I have ordered work up including imaging studies. We may have to back off her ARB if her serum creatinine rises. She has no proteinuria. Her BP is at goal. She should maintain good hydration and avoid NSAID's. I did not make any medication changes today but further management is pending evolving data. Answered all questions. Proof Sorter services used. F/U given Orders: Orders US renal doppler 1 Month N17.9 - Acute kidney failure, unspecified Blood Urea Nitrogen 3 Months N17.9 - Acute kidney failure, unspecified Electrolytes 3 Months N17.9 - Acute kidney failure, unspecified Creatinine 3 Months N17.9 - Acute kidney failure, unspecified Calcium 3 Months N17.9 - Acute kidney failure, unspecified Immunofixation Pnl, Serum 3 Months N17.9 - Acute kidney failure, unspecified US renal BI 1 Month N18.31 - Chronic kidney disease, stage 3a Coding Level of Care Code New Pt Level 4 (50727) Diagnoses FAZAL (acute kidney injury) N17.9 CKD stage 3a, GFR 45-59 ml/min N18.31 Primary hypertension I10 Hypertension type: primary hypertension
[2024-08-08 15:18] VITALS: BP 130/70; PULSE 94; O2SAT 102; BMI 32.3
== END 2024-08-08 15:43 | disposition home or self-care (01) ==
PROVIDERS: PCP Nurse Practitioner Family; Referring Provider Internal Medicine; Visit Provider Internal Medicine Nephrology
DX: N17.9 Acute kidney failure, unspecified (principal); I12.9 Hypertensive chronic kidney disease with stage 1 through stage 4 chronic kidney disease, or unspecified chronic kidney disease; N18.31 Chronic kidney disease, stage 3a
CPT/HCPCS: 99204

== ENCOUNTER → 2024-08-08 15:08 | Outpatient (BNVA) | payer OTHER, SELFPAY | PROVIDERS: PCP Nurse Practitioner Family; Referring Provider Internal Medicine; Visit Provider Internal Medicine Nephrology | DX: I12.9 Hypertensive chronic kidney disease with stage 1 through stage 4 chronic kidney disease, or unspecified chronic kidney disease (principal); N18.31 Chronic kidney disease, stage 3a; N17.9 Acute kidney failure, unspecified | CPT/HCPCS: 99202 ==

== ENCOUNTER 2024-08-19 12:58 | Outpatient (AMB) | payer OTHER, SELFPAY ==
[2024-08-19 13:00] VITALS: BMI 32.3
--- NOTE | 2024-08-19 13:00 | MHC.OFFVIS ---
Vital Signs 08/19/24 13:00 Height 4 ft 9 in Weight 149 lb 4 oz BMI 32.3 Intake Visit Reasons: Right knee pain and giving way Intake Note: Consuelo is 73 year old female who presents with complaints of progressively worsening right knee pain and giving way. The patient states that she injured her right knee approximately 6 months ago while taking a [employer] exercise class. The patient states that she twisted her knee and had acute onset of pain along the medial aspect of her knee. She denies any pain in her right knee prior to that injury. Since that time her symptoms have gotten progressively worse. At this point her right knee pain is interfering with her activities of daily living and her ability to sleep well through the night. She has failed the last 6 weeks of conservative treatment. She has been to physical therapy which aggravated her symptoms. She has also tried Tylenol, anti-inflammatory medicines and Voltaren topical gel which gave her minimal relief. She has been wearing a knee brace which gives her only mild relief. She states that her right knee will give out several times per day. Allergies No Known Allergies [No Known Allergies*] Allergy (Verified 08/19/24 13:04) Medication List - Last Reconciled 08/19/24 by Robe Galdamez MD alendronate 70 mg PO QWEEK alprazolam 0.5 mg PO BID PRN 30 days amlodipine 2.5 mg PO DAILY aspirin 1 tab PO DAILY atorvastatin 20 mg PO DAILY blood-glucose meter (FreeStyle Lite Meter kit) Free style Lite device check sugar 2 times a day calcium carbonate-vitamin D3 600 mg-12.5 mcg (500 unit) (Calcium with Vit D3) 1 cap PO BID 30 days cyanocobalamin (vitamin B-12) 1,000 mcg IM .[id number] 90 days diclofenac sodium 1% (Voltaren Arthritis Pain) 4 grams topical BID PRN duloxetine 30 mg PO DAILY 90 days ezetimibe 10 mg PO DAILY 90 days fenofibrate nanocrystallized 145 mg PO DAILY 90 days ferrous sulfate 325 mg PO BID fluoxetine 40 mg PO DAILY FreeStyle Lite Strips (blood sugar diagnostic) Use to check blood sugar twice daily, fasting and a random blood sugar during the day. NS irbesartan 150 mg PO DAILY 90 days lancets Use to check blood sugar twice daily, fasting and a random blood sugar during the day. levothyroxine 50 mcg PO QAM mecobalamin (vitamin B12) 1,000 mcg PO DAILY metformin 500 mg PO BID 90 days omeprazole 20 mg PO BID pen needle, diabetic (BD Ultra-Fine Micro Pen Needle) Once a week with Ozempic quetiapine 200 mg PO BEDTIME semaglutide (Ozempic) 0.5 mg (0.736 mL) subcut QWEEK 30 days zolpidem ER 12.5 mg PO BEDTIME PRN PFSH Medical History Decreased renal function Multinodular thyroid Hypothyroidism Vitamin D deficiency T2DM (type 2 diabetes mellitus) Osteoporosis Surgical History Hx of thyroidectomy History of surgery on wrist Hx of cholecystectomy Family History Father Emphysema of lung Mother Myocardial infarction Hypertension Cardiovascular disease [facility] Tobacco Use Status: Never used Tobacco e-Cigarette/Vaping Use: Never Used Current occupational status: retired Cognitive needs: No Hearing needs: No Vision needs: No Physical Exam Vital Signs: BMI result Body Mass Index 32.3 Const Other: Well-nourished well-developed very friendly female awake alert and oriented x3 in no acute distress Extrem Other: Bilateral lower extremity examination shows good capillary refill, no skin lesions noted, normal sensation light touch Right knee examination shows a minimal effusion, minimal crepitus with range of motion, tenderness along her medial joint line, positive Sonya's test, no instability Results Reviewed Results Reviewed: Standing full weight-bearing x-rays of the patient's right knee show mild diffuse joint space narrowing, no acute bony abnormalities MRI of the patient's right knee shows mild diffuse degenerative changes as well as a tear of the medial meniscus Assessment & Plan Assessment & Plan (1) Tear of medial meniscus of right knee: Code(s): S83.241A - Other tear of medial meniscus, current injury, right knee, initial encounter Category: Medical Plan Ms. Bauer presents with progressively worsening right knee pain and mechanical symptoms due to meniscus tear. I had a lengthy discussion with the patient regarding the treatment options. At this point she has failed continued non operative treatments. The risks and benefits of right knee arthroscopic surgery were discussed at length with the patient. The patient wishes to proceed with surgery. Surgery will most likely involve right knee arthroscopic partial medial meniscectomy. The patient will be scheduled for next available date. She will follow-up as instructed. Feel free to call me at any time should questions regarding her orthopedic management arise. I spent 20 minutes in reviewing the patient's records and imaging studies, seeing the patient and documenting in the medical record. Coding Level of Care Code Est Pt Level 3 (81758) Complex EM visit Add On G2211 Diagnoses Tear of medial meniscus of right knee S83.241A
== END 2024-08-19 13:30 | disposition home or self-care (01) ==
PROVIDERS: PCP Nurse Practitioner Family; Visit Provider Orthopaedic Surgery
DX: S83.241A Other tear of medial meniscus, current injury, right knee, initial encounter (principal)
CPT/HCPCS: 99213; G2211

== ENCOUNTER → 2024-08-19 12:58 | Outpatient (BNVA) | payer OTHER, SELFPAY | PROVIDERS: PCP Nurse Practitioner Family; Visit Provider Orthopaedic Surgery | DX: S83.241A Other tear of medial meniscus, current injury, right knee, initial encounter (principal); X58.XXXA Exposure to other specified factors, initial encounter; Y93.9 Activity, unspecified; Y92.9 Unspecified place or not applicable; Y99.9 Unspecified external cause status | CPT/HCPCS: 99212 ==

== ENCOUNTER 2024-08-20 09:36 | Outpatient (REF) | payer OTHER, SELFPAY ==
--- NOTE | ~2024-08-20 | US_ITS ---
EXAMINATION: RENAL ARTERY DOPPLER ULTRASOUND CLINICAL INFORMATION: Worsening chronic kidney disease COMPARISON: 02/19/2016 TECHNIQUE: Renal ultrasound. Doppler ultrasound (spectral analysis and color Doppler) of the renal arteries and aorta were performed. FINDINGS: The right kidney measures 10.3 x 4.2 x 4.9 cm in sagittal, AP and transverse dimensions. The left kidney measures 10.5 x 4.1 x 3.7 cm in sagittal, AP and transverse dimensions. The kidneys show no masses, calculi or hydronephrosis. The corticomedullary differentiation is normal. RENAL ARTERY VELOCITIES: Right: Proximally: 205 cm/s. Mid: 197 cm/s. Distal: 166 cm/s. Left: Proximally: 189 cm/s. Mid: 129 cm/s. Distally: 86 cm/s. INTERLOBAR RESISTIVE INDICES: Right: Upper: 0.75 Mid: 0.75 Lower: 0.77 Left: Upper: 0.74 Mid: 0.78 Lower: 0.73 Mid aortic velocity: 81 cm/s. Renal Aortic Ratio: Right: 2.53 Left: 2.33 US/US renal BI IMPRESSION: 1. The kidneys are normal in appearance. 2. Mildly elevated velocities in the bilateral renal arteries consistent with less than 60% stenosis. Criteria: NORMAL: Renal artery peak systolic velocities < 180 cm/s. Renal aortic ratio < 3.5 Normal renal size. < 60% STENOSIS: Renal artery peak systolic velocities > 180 cm/s. Renal aortic ratio < 3.5 Renal size <2 cm difference between sides. > 60% STENOSIS Renal artery peak systolic velocities > 180 cm/s. Renal aortic ratio > 3.5 Renal size >2 cm difference between sides. Aortic PSV > 140 cm/s with normal renal artery PSV made over estimate severity. Aortic PSV > 100 cm/s with normal renal artery PSV may underestimate severity. Electronically signed by: Finn Salmon MD 08/21/2024 08:56 AM [facility]
--- NOTE | ~2024-08-20 | US_ITS ---
EXAMINATION: RENAL ARTERY DOPPLER ULTRASOUND CLINICAL INFORMATION: Worsening chronic kidney disease COMPARISON: 02/19/2016 TECHNIQUE: Renal ultrasound. Doppler ultrasound (spectral analysis and color Doppler) of the renal arteries and aorta were performed. FINDINGS: The right kidney measures 10.3 x 4.2 x 4.9 cm in sagittal, AP and transverse dimensions. The left kidney measures 10.5 x 4.1 x 3.7 cm in sagittal, AP and transverse dimensions. The kidneys show no masses, calculi or hydronephrosis. The corticomedullary differentiation is normal. RENAL ARTERY VELOCITIES: Right: Proximally: 205 cm/s. Mid: 197 cm/s. Distal: 166 cm/s. Left: Proximally: 189 cm/s. Mid: 129 cm/s. Distally: 86 cm/s. INTERLOBAR RESISTIVE INDICES: Right: Upper: 0.75 Mid: 0.75 Lower: 0.77 Left: Upper: 0.74 Mid: 0.78 Lower: 0.73 Mid aortic velocity: 81 cm/s. Renal Aortic Ratio: Right: 2.53 Left: 2.33 US/US renal doppler IMPRESSION: 1. The kidneys are normal in appearance. 2. Mildly elevated velocities in the bilateral renal arteries consistent with less than 60% stenosis. Criteria: NORMAL: Renal artery peak systolic velocities < 180 cm/s. Renal aortic ratio < 3.5 Normal renal size. < 60% STENOSIS: Renal artery peak systolic velocities > 180 cm/s. Renal aortic ratio < 3.5 Renal size <2 cm difference between sides. > 60% STENOSIS Renal artery peak systolic velocities > 180 cm/s. Renal aortic ratio > 3.5 Renal size >2 cm difference between sides. Aortic PSV > 140 cm/s with normal renal artery PSV made over estimate severity. Aortic PSV > 100 cm/s with normal renal artery PSV may underestimate severity. Electronically signed by: Finn Salmon MD 08/21/2024 08:56 AM [facility]
== END 2024-08-20 09:37 | disposition home or self-care (01) ==
LOC: HO.HMGCX 09:36
PROVIDERS: PCP Nurse Practitioner Family; Visit Provider Internal Medicine Nephrology
DX: N18.31 Chronic kidney disease, stage 3a (principal); N17.9 Acute kidney failure, unspecified
CPT/HCPCS: 76775; 93975

== ENCOUNTER 2024-10-06 06:13 | Day surgery (SDC) | payer OTHER, SELFPAY ==
[2024-10-02 07:13] VITALS: BMI 32.2
[2024-10-06] VITALS (8 sets, daily range): BP systolic 125–153; BP diastolic 63–74; PULSE 72–101; RESP 15–17; TEMP 36.3–36.8; O2SAT 93–100; BMI 32.5
[2024-10-06] MEDS: Lactated Ringers 1,000 ML 50 ML IVCONT (06:52)
[2024-10-06 06:57] LABS: Glucose, Whole Blood 147 mg/dL (60-115)
--- NOTE | 2024-10-06 08:10 | P.CONAN_ITS ---
HPI - Anesthesia Eval Consult details Narrative: knee scope Anesthesia Pre-Procedure Meds Is the patient on any of the following meds?: SGLT2 Inhib If yes to any meds - educate patient: Pt education - increased risk of aspirati on and/or euvolemic DKA PMFSH Active Problems Active Problems: All Active Problems Tear of medial meniscus of right knee (Acute) CKD stage 3a, GFR 45-59 ml/min (Acute) FAZAL (acute kidney injury) (Acute) Right knee pain (Acute) Acute pain of right knee (Acute) [place] (hard of hearing) (Acute) Murmur (Acute) Iron deficiency (Acute) B12 deficiency (Acute) Low TSH level (Acute) Anemia (Acute) HTN (hypertension) (Acute) Skin lesions (Acute) Screening for breast cancer (Acute) Tachycardia (Acute) Encounter for laboratory testing for COVID-19 virus (Acute) Decreased renal function (Acute) Multinodular thyroid (Acute) Hypothyroidism (Acute) Vitamin D deficiency (Acute) T2DM (type 2 diabetes mellitus) (Acute) Osteoporosis (Acute) Past Medical History Medical History Vitamin B 12 deficiency Elevated cholesterol GERD (gastroesophageal reflux disease) CKD (chronic kidney disease) HTN (hypertension) Decreased renal function Multinodular thyroid Hypothyroidism Vitamin D deficiency T2DM (type 2 diabetes mellitus) Osteoporosis Family History Family History Father Emphysema of lung Mother Myocardial infarction Hypertension Cardiovascular disease Family history of problems with anesthesia: No Surgical History Surgical History Hx of thyroidectomy History of surgery on wrist Hx of cholecystectomy History of Problems with Anesthesia: No Social History Social History Housing: Condominium Patient Tobacco Use Status: Never used Tobacco e-Cigarette/Vaping Use: Never Used Use of substances other than those prescribed or required for medical reasons: No Are you DNR?: No Advance Directives: No Advance Directives Information Provided: Yes Current occupational status: retired Cognitive needs: No Hearing needs: No Vision needs: No Meds Allergies Allergy/AdvReac Type Severity Reaction Status Date / Time No Known Allergies Allergy Verified 10/06/24 06:25 [No Known Allergies*] Active Medications: Current Medications Lactated Ringer's (Lr) 1,000 mls @ 50 mls/hr IVCONT .Q20H ALPHONSO Last Admin: 10/06/24 06:52 Dose: 50 mls/hr Home Medications ?Medication ?Instructions ?Recorded ?Confirmed ?Last Taken ?Type fluoxetine 40 mg capsule 40 mg PO DAILY 06/03/24 10/06/24 Unknown History quetiapine 200 mg tablet 200 mg PO BEDTIME 06/03/24 10/06/24 Unknown History zolpidem 12.5 mg tablet,extended 12.5 mg PO BEDTIME PRN Insomnia 06/03/24 10/06/24 Unknown History release,multiphase Exam Height,Weight and Vital Signs: Height 4 ft 9 in Weight 68.039 kg Last Vital Signs Temp 97.4 F 10/06/24 06:30 Pulse 101 H 10/06/24 06:30 Resp 15 10/06/24 06:30 BP 125/71 10/06/24 06:30 Pulse Ox 98 10/06/24 06:30 O2 Del Method Room Air 10/06/24 06:30 Pertinent Lab Results Pertinent Lab Results: Laboratory Tests 10/06/24 06:43 POC Glucose 147 H Airway Mallampati Class: II TM Dist: >3cm Neck ROM: Limited Heart: rrr Lungs: cta Assessment and Plan Assessment Anesthesia Assessment: Anesthesia Plan Discussed Final Anesthetic Review Family History of Problems with Anesthesia: No History of Problems with Anesthesia: No NPO: Yes ASA Class: III Final Preanesthetic Review: No Changes in Pt Med Stat, Meds/Allgs Chart Reviewed, Consent Obtained/Reviewed and Anes Risks/Benef Reviewed Patient Risk: Intermediate Procedure Risk: Low Anesthetic Plan Anesthetic Plan: GA Disposition: Standard PACU
--- NOTE | 2024-10-06 08:40 | P.BOP_ITS ---
Brief Operative Note Date of Service: 10/06/24 Pre-op diagnosis: Right knee medial meniscus tear, right knee degenerative joint disease Post-op diagnosis: other (Right knee medial meniscus tear, right knee degenerative joint disease, right knee lateral meniscus tear) Procedure: Right knee diagnostic arthroscopy with right knee arthroscopic partial medial and lateral meniscectomies, right knee arthroscopic chondroplasty of the medial femoral condyle and the undersurface of the patella Implants: none Surgeon: Robe Galdamez MD Anesthesia: GLMA Was an Chemical Processing Supervisor used for this Procedure?: No Estimated blood loss (mL): 10 Pathology: none sent Condition: stable Disposition: PACU
--- NOTE | 2024-10-06 08:41 | P.OP_ITS ---
Operative Note Operative Note Date of Service: 10/06/24 Narrative: After the patient was identified as Consuelo Bauer and her right knee was initialed by myself they were brought to the operating room where general anesthesia was induced by the anesthesiologist in routine fashion. The patient was given 2 g of IV Ancef for infection prophylaxis. A formal time-out was completed. The patient's right lower extremity was prepped and draped in sterile fashion. Marcaine with epinephrine was injected into the planned incision sites as well as their right knee joint. A # 11 scalpel blade was used to make an anterolateral portal 1 cm proximal to the joint line and 1 cm lateral to the patellar tendon. Blunt trocar technique was used into the suprapatellar pouch with the knee in extension. Diagnostic arthroscopy showed multiple bands of thickened plica which would be excised at the end of the procedure. There were no loose bodies or abnormalities found in either the medial or lateral gutters. There were diffuse grades 1 and 2 degenerative changes of the undersurface of the patella as well as grade 1 degenerative changes of the trochlear groove. The patient's knee was flexed to 45 degrees and a valgus force was placed upon it. The medial compartment was entered. An anteromedial portal was made 1 cm proximal to the joint line and 1 cm medial to the patellar tendon. Probing of the medial meniscus showed a radial tear of the posterior horn. A partial medial meniscectomy was performed using the arthroscopic shaver. Following the partial meniscectomy the remainder of the meniscus tissue was stable. There were diffuse grades 2 and 3 degenerative changes of the med ial femoral condyle as well as diffuse grades 1 and 2 degenerative changes of the medial tibial plateau. The articular surface of the medial femoral condyle was made smooth using the arthroscopic shaver. The articular surface of the medial tibial plateau was already smooth so no chondroplasty was indicated. The patient's knee was then placed into a neutral position. There was no injury to the anterior cruciate ligament. The patient's knee was then placed into the figure of 4 position and the lateral compartment was entered. There were minimal degenerative changes of the lateral femoral condyle and lateral tibial plateau. There was a radial tear of the anterior horn of the lateral meniscus. A partial lateral meniscectomy was performed using the arthroscopic shaver. Following the partial meniscectomy the remainder of the meniscus tissue was stable. The patient's knee was once again brought into extension and the suprapatellar pouch was entered. The arthroscopic shaver and the ArthroCare Wand were used to excise the thickened bands of plica. The undersurface of the patella was then made smooth using the arthroscopic shaver. The articular surface of the trochlear groove was already smooth so no chondroplasty was indicated. The knee joint was irrigated and then drained. All arthroscopic instruments were removed. The 2 portals were closed with 3-0 nylon interrupted suture. The knee joint was injected with Marcaine. Dry sterile dressing and Randolph bandages were placed over the patient's knee. The patient was awoken and extubated in the operating room. They were transferred to the recovery room in stable condition.
== END 2024-10-06 10:12 | disposition home or self-care (01) ==
PROVIDERS: PCP Nurse Practitioner Family; Visit Provider Orthopaedic Surgery
PROC: (CPT 29870; principal; 2024-10-06 07:30)
DX: S83.241A Other tear of medial meniscus, current injury, right knee, initial encounter (principal); S83.281A Other tear of lateral meniscus, current injury, right knee, initial encounter; M17.11 Unilateral primary osteoarthritis, right knee; M23.51 Chronic instability of knee, right knee; M67.51 Plica syndrome, right knee; X58.XXXA Exposure to other specified factors, initial encounter; Y93.B9 Activity, other involving muscle strengthening exercises; Y92.9 Unspecified place or not applicable; Y99.9 Unspecified external cause status; M81.0 Age-related osteoporosis without current pathological fracture; N25.9 Disorder resulting from impaired renal tubular function, unspecified; E55.9 Vitamin D deficiency, unspecified; E11.9 Type 2 diabetes mellitus without complications; Z79.82 Long term (current) use of aspirin; Z79.84 Long term (current) use of oral hypoglycemic drugs; Z79.85 Long-term (current) use of injectable non-insulin antidiabetic drugs; Z79.899 Other long term (current) drug therapy; E03.9 Hypothyroidism, unspecified; Z98.890 Other specified postprocedural states
CPT/HCPCS: 29880; 29876; 82947; J0131; J0171; J0690; J1100; J2003; J2371; J2405; J2704; J2795; J3010

== ENCOUNTER → 2024-10-06 06:13 | Outpatient (BNV) | payer OTHER, SELFPAY | PROVIDERS: PCP Nurse Practitioner Family; Visit Provider Orthopaedic Surgery | DX: S83.241A Other tear of medial meniscus, current injury, right knee, initial encounter (principal); S83.281A Other tear of lateral meniscus, current injury, right knee, initial encounter | CPT/HCPCS: 29880 ==

== ENCOUNTER 2024-10-21 09:19 | Outpatient (AMB) | payer OTHER, SELFPAY ==
--- NOTE | 2024-10-21 09:21 | A.OFFVIS_ITS ---
Vital Signs 10/21/24 09:28 Height 4 ft 9 in Weight 150 lb BMI 32.5 Intake Visit Reasons: PO RT knee 10/06/24 Intake Note: Consuelo is a 74 year old female who presents today for her first post-operative visit after undergoing right knee arthroscopic surgery on 10/06/24. She reports mild intermittent discomfort in her right knee. She denies any fevers or chills. She would like to go to formal physical therapy. [employer] Salesperson Required: Yes [employer] Salesperson Language: Expressive Art Therapist Services: [employer] Salesperson Present [employer] Salesperson Name: Mitesh DAVID/LUIGI Allergies No Known Allergies [No Known Allergies*] Allergy (Verified 10/21/24 09:28) Medication List - Last Reconciled 10/21/24 by Robe Galdamez MD alendronate 70 mg PO QWEEK alprazolam 0.5 mg PO BID PRN 30 days amlodipine 2.5 mg PO DAILY aspirin 1 tab PO DAILY atorvastatin 20 mg PO DAILY blood-glucose meter (FreeStyle Lite Meter kit) Free style Lite device check sugar 2 times a day calcium carbonate-vitamin D3 600 mg-12.5 mcg (500 unit) (Calcium with Vit D3) 1 cap PO BID 30 days cyanocobalamin (vitamin B-12) 1,000 mcg IM .[id number] 90 days diclofenac sodium 1% (Voltaren Arthritis Pain) 4 grams topical BID PRN duloxetine 30 mg PO DAILY 90 days ezetimibe 10 mg PO DAILY 90 days fenofibrate nanocrystallized 145 mg PO DAILY 90 days ferrous sulfate 325 mg PO BID fluoxetine 40 mg PO DAILY FreeStyle Lite Strips (blood sugar diagnostic) Use to check blood sugar twice daily, fasting and a random blood sugar during the day. NS irbesartan 150 mg PO DAILY 90 days lancets Use to check blood sugar twice daily, fasting and a random blood sugar during the day. levothyroxine 50 mcg PO QAM mecobalamin (vitamin B12) 1,000 mcg PO DAILY metformin 500 mg PO BID 90 days omeprazole 20 mg PO BID oxycodone 5 mg PO Q6H PRN pen needle, diabetic (BD Ultra-Fine Micro Pen Needle) Once a week with Ozempic quetiapine 200 mg PO BEDTIME semaglutide (Ozempic) 0.5 mg (0.736 mL) subcut QWEEK 30 days zolpidem ER 12.5 mg PO BEDTIME PRN PFSH Medical History Vitamin B 12 deficiency Elevated cholesterol GERD (gastroesophageal reflux disease) CKD (chronic kidney disease) HTN (hypertension) Decreased renal function Multinodular thyroid Hypothyroidism Vitamin D deficiency T2DM (type 2 diabetes mellitus) Osteoporosis Surgical History Hx of thyroidectomy History of surgery on wrist Hx of cholecystectomy Family History Father Emphysema of lung Mother Myocardial infarction Hypertension Cardiovascular disease [facility] Patient Tobacco Use Status: Never used Tobacco e-Cigarette/Vaping Use: Never Used Current occupational status: retired Cognitive needs: No Hearing needs: No Vision needs: No Physical Exam Vital Signs: BMI result Body Mass Index 32.5 Extrem Other: Right knee examination shows that the surgical incisions are healing well, no erythema, minimal discomfort with range of motion, minimal crepitus with range of motion Assessment & Plan Assessment & Plan (1) Right knee pain: Code(s): M25.561 - Pain in right knee Category: Medical Plan Ms. Bauer he is doing well after undergoing right knee arthroscopic surgery on 10/06/2024. Her sutures were removed and Steri-Strips placed over her incisions. I did give her a prescription to go to formal physical therapy. She will contact me prior to her follow-up appointment in 2 months should any questions or concerns arise. Feel free to call me at any time should questions regarding her orthopedic management arise. Orders: Orders PT Evaluation and Treatment Today M25.561 - Pain in right knee Coding Level of Care Code Global (70571) Diagnoses Right knee pain M25.561
[2024-10-21 09:28] VITALS: BMI 32.5
--- OUTSIDE RECORDS SUMMARY | 2024-10-21 09:48 | XMS_ITS | Clinical Summary ---
Author Organization [employer] Address [address] [place] [address] Care Team Providers Care Research Specialist Name Role Phone Unavailable Primary Care Provider Unavailabl e Immunizations Name Administration Dates Next Due Influenza High-dose Quadriva lent Preservative Free 07/07/2022,10/03/2021 Influenza injectable quadriv alent preservative free 07/02/2023,06/15/2020 Influenza, High Dose Seasona l, Preservative Free 07/29/2019,07/18/2018,11/12/2017,06/29 Pfizer Covid-19 Vaccine 12+ 07/17/2023 Pneumococcal Polysaccharide PPSV23 09/09/2020 Social History Tobacco Use Types Packs/Day Years Used Date Smoking Tobacco: Never Assessed Comments Unknown Sex and Gender Information Value Date Recorded Sex Assigned at Female 07/17/2022 10:26 AM EDT Legal Sex Female 10:26 AM EDT Gender Identity Female 07/17/2022 10:26 AM EDT Sexual Orientation Choose not to disclose 2021 10:26 AM EDT Plan of Treatment Health Maintenance Due Date Last Done Comments CT Colonography 1949 Colonoscopy 1949 Colorectal Cancer Screening 1949 Depression Screening 1949 FIT DNA/Cologuard 1949 FIT 1949 FOBT 1949 Lipid Panel 1949 SDOH Screening 1949 Sigmoidoscopy 1949 Alcohol/Substance Use Screening 1961 Tobacco Screening 1961 Hepatitis C Screening 1967 DTaP/Tdap/Td Vaccines (1 - Tdap) 1968 Zoster Vaccines (1 of 2) 1999 Pneumococcal Vaccine: 50+ Years (2 of 2 - PCV) 09/09/2021 09/09/2020 COVID-19 Vaccine (5 - season) 2024 07/17/2023, 07/21/2022, 01/04/2022, Additional history exists Influenza Vaccine (#1) 2024 , 07/07/2022, 10/03/2021, Additional history exists RSV Patients and Patients Aged 60 years or older (1 - 1-dose 75+ series) 2024 HIB Vaccines Aged Out No longer eligi ble based on patient's age to complete this topic HPV Vaccines Aged Out No longer eligi ble based on patient's age to complete this topic Hepatitis A Vaccines Aged Out No long er eligible based on patient's age to complete this topic Hepatitis B Vaccines Aged Out No long er eligible based on patient's age to complete this topic IPV Vaccines Aged Out No longer eligi ble based on patient's age to complete this topic Meningococcal Vaccine Aged Out No marv kate eligible based on patient's age to complete this topic RSV under 20 months Aged Out No longe r eligible based on patient's age to complete this topic Rotavirus Vaccines Aged Out No longer eligible based on patient's age to complete this topic Insurance [facility]
--- OUTSIDE RECORDS SUMMARY | 2024-10-21 09:48 | XMS_ITS | Clinical Summary ---
Author Organization [facility] Address [address] [place] [address] Care Team Providers Care Dental Patient Coordinator Name Role Phone Unavailable Primary Care Provider Unavailabl e Social History Tobacco Use Types Packs/Day Years Used Date Smoking Tobacco: Never Assessed Sex and Gender Information Value Date Recorded Sex Assigned at Not on file Gender Identity Not on file Sexual Orientation Not on file Plan of Treatment Health Maintenance Due Date Last Done Comments DTaP,Tdap,and Td Vaccines (1 - Tdap) 1968 Zoster Vaccines (1 of 2) 1999 Pneumococcal Vaccine: 65+ Ye ars (1 of 1 - PCV) 2014 Colorectal Cancer Screening: Colonoscopy 08/20/2022 Depression Screening 08/20/2022 Falls Risk Assessment 08/20/2022 Hepatitis C Screening 08/20/2022 Osteoporosis Screening (Bone Density Screening) 08/20/2022 Social Influencers of Health Screening 08/20/2022 COVID-19 Vaccine ( - 2023-2 5 season) 2024 Influenza Vaccine (#1) 2024 RSV Immunization Patients 60 + Years Old (1 - 1-dose 75+ series) 2024 HIB [...] on patient's age to complete this topic MMR Vaccines Aged Out No longer eligi ble based on patient's age to complete this topic Meningococcal ACWY Vaccine Aged Out N o longer eligible based on patient's age to complete this topic RSV Immunization Patients Un nile 20 months Aged Out No longer eligible b ased on patient's age to complete this topic Varicella Vaccines Aged Out No longer eligible based on patient's age to complete this topic
--- OUTSIDE RECORDS SUMMARY | 2024-10-21 09:48 | XMS_ITS | Encounter Summary ---
Author Organization [employer] Address [address] [facility] [address] [place] [address] Care Team Providers Care Admission Nurse Name Role Phone Unavailable Primary Care Provider Unavailabl e Encounter Details Date Type Department Care Team (Latest Contact Info) Description 09/29/2019 Abstract C CONVERSIONS Dental, Provider, DDS Social History Tobacco Use Types Packs/Day Years Used Date Smoking Tobacco: Never Assessed Comments Unknown Sex and Gender Information Value Date Recorded Sex Assigned at Female 07/17/2022 10:26 AM EDT Legal Sex Female 10:26 AM EDT Gender Identity Female 07/17/2022 10:26 AM EDT Sexual Orientation Choose not to disclose 2021 10:26 AM EDT documented as of this encounter Plan of Treatment Not on file documented as of this encounter Visit Diagnoses Not on filedocumented in this encounter
== END 2024-10-21 09:38 | disposition home or self-care (01) ==
PROVIDERS: PCP Nurse Practitioner Family; Visit Provider Orthopaedic Surgery
DX: M25.561 Pain in right knee (principal)
CPT/HCPCS: 99024

== ENCOUNTER → 2024-10-21 09:19 | Outpatient (BNVA) | payer OTHER, SELFPAY | PROVIDERS: PCP Nurse Practitioner Family; Visit Provider Orthopaedic Surgery | DX: M25.561 Pain in right knee (principal); Z47.89 Encounter for other orthopedic aftercare; Z98.890 Other specified postprocedural states | CPT/HCPCS: 99212 ==

== ENCOUNTER 2024-10-27 14:15 | Outpatient (REF) | payer OTHER, SELFPAY ==
--- OUTSIDE RECORDS SUMMARY | 2024-10-27 16:18 | XMS_ITS | Clinical Summary ---
Author Organization [employer] Address [address] [facility] [address] [place] [address] Care Team Providers Care Toolmaker Name Role Phone Unavailable Primary Care Provider [...] patient's age to complete this topic Insurance [facility]
--- OUTSIDE RECORDS SUMMARY | 2024-10-27 16:18 | XMS_ITS | Clinical Summary ---
Author Organization [facility] it Address [address] [place] [address] Care Team Providers Care Warning Analyst Name Role Phone Unavailable Primary Care Provider [...]
--- OUTSIDE RECORDS SUMMARY | 2024-10-27 16:18 | XMS_ITS | Encounter Summary ---
Author Organization [employer] Address [address] [facility] [address] [place] [address] Care Team Providers Care Lead Coater Name Role Phone Unavailable Primary Care Provider [...]
[2024-10-27 16:52] LABS: Anion Gap 13 (12-20); Blood Urea Nitrogen 29 mg/dL (9-16); Calcium 9.9 mg/dL (8.4-10.2); Carbon Dioxide 25 mmol/L (22-29); Chloride 109 mmol/L (96-108); Estimated Glomerular Filt Rate 46; Potassium 4.7 mmol/L (3.3-5.1); Sodium 142 mmol/L (135-145)
[2024-10-30 12:49] LABS: IgA 149 mg/dL (70-320); IgG 873 mg/dL (600-1540); IgM 58 mg/dL (50-300)
== END 2024-10-27 14:16 | disposition home or self-care (01) ==
LOC: HO.LAB 14:15
PROVIDERS: PCP Nurse Practitioner Family; Visit Provider Internal Medicine Nephrology
DX: N17.9 Acute kidney failure, unspecified (principal); I12.9 Hypertensive chronic kidney disease with stage 1 through stage 4 chronic kidney disease, or unspecified chronic kidney disease; E11.22 Type 2 diabetes mellitus with diabetic chronic kidney disease; N18.31 Chronic kidney disease, stage 3a
CPT/HCPCS: 36415; 80051; 82310; 82565; 82784; 84520; 86334; 99212

== ENCOUNTER 2024-10-27 14:15 | Outpatient (AMB) | payer OTHER, SELFPAY ==
--- NOTE | 2024-10-27 14:24 | HO.NEPHOV_ITS ---
Vital Signs 10/27/24 14:25 Height 4 ft 9 in Weight 152 lb 6 oz BMI 33.0 BP 110/60 Blood Pressure Location Rt brachial Position Sitting Pulse 96 Pulse Source Pulse Oximeter Pulse Oximetry (%) 98 Oxygen Delivery Method Room Air Intake Visit Reasons: FAZAL/ Conf Guitar Teacher Required: Yes Guitar Teacher Language: [employer]ing [employer] Composite Fabricator Services: Guitar Teacher Offered & Declined ([facility] pipe recovery specialist services refused. ) Accompanied by: Spouse Allergies No Known Allergies [No Known Allergies*] Allergy (Verified 10/27/24 14:25) HPI Comments Details: I had the privilege of seeing Consuelo in follow up for CKD and hypertension. She has no DM, retinopathy or neuropathy. She has longstanding HTN and is on ARB as well as calcium channel lalo. She denies PAD, CAD, carotid stenosis, CVA, CHF , excessive intake of NSAID's, new bone or back pain, epistaxis, renal calculus, sinusitis, new joint swelling, urinary complaints or pedal edema. She has no nausea, vomiting, diarrhea, SOB or any new systemic complaints. Her recent serum creatinine has been 1.33. She has not had any proteinuria. She takes bisphosphonates. She feels well [facility] Medical History Vitamin B 12 deficiency Elevated cholesterol GERD (gastroesophageal reflux disease) CKD (chronic kidney disease) HTN (hypertension) Decreased renal function Multinodular thyroid Hypothyroidism Vitamin D deficiency T2DM (type 2 diabetes mellitus) Osteoporosis Surgical History (Updated 10/27/24 @ 14:25 by Kathleen Avina MA) H/O knee surgery Hx of thyroidectomy History of surgery on wrist Hx of cholecystectomy Family History Father Emphysema of lung Mother Myocardial infarction Hypertension Cardiovascular disease Social History Housing: Condominium Patient Tobacco Use Status: Never used Tobacco e-Cigarette/Vaping Use: Never Used Current occupational status: retired Cognitive needs: No Hearing needs: No Vision needs: No Review of Systems Const All systems reviewed & are unremarkable except as noted in HPI and below Physical Exam Vital Signs: Last Vital Signs Pulse 96 10/27/24 14:25 BP 110/60 10/27/24 14:25 Pulse Ox 98 10/27/24 14:25 Oxygen Delivery Method Room Air 10/27/24 14:25 BMI result Body Mass Index 33.0 Const General: comfortable and no acute distress Orientation/consciousness: patient oriented x3 HEENT Head: Yes normocephalic Mouth: Normal oral and palatal mucosa present Eyes EOM: EOMs intact bilaterally Neck Neck: Yes supple Resp Auscultation: clear to auscultation bilaterally Cardio Jugular venous distension: no JVD Rate: regular rate GI Palpation (GI): Soft to palpation Auscultation: normal bowel sounds General: Yes no CVA tenderness Back/Spine/Pelvis Back: no CVA tenderness Skin General skin exam: no rashes or lesions noted Neuro General: patient oriented x3 and moves all extremities Extrem General: Yes no pedal edema Results Reviewed Nephrology Results: Hgb 10.8 g/dl (12.0-16.0) L 10/30/24 WBC 8.8 X10*3/uL (4.8-10.8) 10/30/24 Plt Count 385 X10*3/uL (160-400) 10/30/24 Sodium 140 mmol/L (135-145) 10/30/24 Potassium 4.7 mmol/L (3.3-5.1) 10/30/24 Chloride 106 mmol/L (96-108) 10/30/24 Carbon Dioxide 23 mmol/L (22-29) 10/30/24 BUN 26 mg/dL (9-16) H 10/30/24 Creatinine 1.21 mg/dL (0.5-1.4) 10/30/24 Calcium 8.8 mg/dL (8.4-10.2) 10/30/24 Urine Protein Negative mg/dL (Neg-Trace) 10/30/24 Urine Creatinine 122.57 mg/dL 07/14/24 Renal US 08/20/24 Assessment & Plan Assessment & Plan (1) CKD stage 3a, GFR 45-59 ml/min: Code(s): N18.31 - Chronic kidney disease, stage 3a Category: Medical (2) HTN (hypertension): Code(s): I10 - Essential (primary) hypertension Category: Medical Qualifiers: Hypertension type: primary hypertension Qualified Code(s): I10 - Essential (primary) hypertension Plan 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 She is on ARB. Her UO is good. Her renal imaging studies were reviewed. We may have to back off her ARB if her serum creatinine rises. She has no proteinuria. Her BP is at goal. She should maintain good hydration and avoid NSAID's. She is a great candidate for Jardiance. I did not make any medication changes today but further management is pending evolving data. Answered all questions. Coding Level of Care Code Est Pt Level 4 (62140) Diagnoses CKD stage 3a, GFR 45-59 ml/min N18.31 Primary hypertension I10 Hypertension type: primary hypertension
[2024-10-27 14:25] VITALS: BP 110/60; PULSE 96; O2SAT 98; BMI 33.0
--- OUTSIDE RECORDS SUMMARY | 2024-10-27 15:35 | XMS_ITS | Clinical Summary ---
Author Organization [facility] it Address [address] [place] [address] Care Team Providers Care Electricity Trader Name Role Phone Unavailable Primary Care Provider Unavailabl e Social History Tobacco Use Types Packs/Day Years Used Date Smoking Tobacco: Never Assessed Comments Unknown Sex and Gender Information Value Date Recorded Sex Assigned at Not on file Legal Sex Female 2:37 AM EST Gender Identity Not on file Sexual Orientation Not on file Plan of Treatment Health Maintenance Due Date Last Done Comments DTaP,Tdap,and Td Vaccines (1 - Tdap) 1956 Pneumococcal Vaccine: 50+ Ye ars (1 of 1 - PCV) 1999 Zoster Vaccines (1 of 2) 1999 Colorectal Cancer Screening: Colonoscopy 08/20/2022 Depression Screening [...] patient's age to complete this topic Meningococcal B Vacine Aged Out No lo nger eligible based on patient's age to complete this topic RSV Immunization Patients Un nile 20 months Aged Out No longer eligible b ased on patient's age to complete this topic Varicella Vaccines Aged Out No longer eligible based on patient's age to complete this topic
--- OUTSIDE RECORDS SUMMARY | 2024-10-27 15:35 | XMS_ITS | Encounter Summary ---
Author Organization [employer] Address [address] [facility] [address] [place] [address] Care Team Providers Care Leather Stripping Machine Operator Name Role Phone Unavailable Primary Care Provider [...]
--- OUTSIDE RECORDS SUMMARY | 2024-10-27 15:35 | XMS_ITS | Clinical Summary ---
Author Organization [employer] [facility] [employer] Address [address] [facility] [address] [place] [address] Care Team Providers Care Freight Booker Name Role Phone Unavailable Primary Care Provider [...] patient's age to complete this topic Insurance [facility]
== END 2024-10-27 14:51 | disposition home or self-care (01) ==
PROVIDERS: PCP Nurse Practitioner Family; Visit Provider Internal Medicine Nephrology
DX: N18.31 Chronic kidney disease, stage 3a (principal); I10 Essential (primary) hypertension
CPT/HCPCS: 99214

== ENCOUNTER 2024-10-30 08:57 | Outpatient (REF) | payer OTHER, SELFPAY ==
--- OUTSIDE RECORDS SUMMARY | 2024-10-30 09:20 | XMS_ITS | Encounter Summary ---
Author Organization [employer] Address [address] [facility] [address] [place] [address] Care Team Providers Care Charter Coach Driver Name Role Phone Unavailable Primary Care Provider [...]
--- OUTSIDE RECORDS SUMMARY | 2024-10-30 09:20 | XMS_ITS | Clinical Summary ---
Author Organization [facility] it Address [id number] [place] [phone] Care Team Providers Care Ballast Cleaning Machine Operator Name Role Phone Unavailable Primary [...] DTaP,Tdap,and Td Vaccines (1 - Tdap) 1968 Pneumococcal Vaccine: 50+ Ye ars (1 of [...]
--- OUTSIDE RECORDS SUMMARY | 2024-10-30 09:20 | XMS_ITS | Clinical Summary ---
Author Organization [employer] Address [address] [facility] [address] [place] [address] Care Team Providers Care Protection Chief Industrial Plant Name Role Phone Unavailable Primary Care Provider [...] patient's age to complete this topic Insurance [facility]
[2024-10-30 10:15] LABS: MANUAL DIFF FLAG NO
[2024-10-30 10:21] LABS: Appearance Urine Clear; Color Urine Yellow; Glucose Urine UA Negative (Negative); Leukocyte Esterase Urine Negative (Negative); Nitrite Urine Negative (Negative); Urine Blood Negative (Negative); Urine Ketones Negative (Negative); Urine Protein Negative (Neg-Trace)
[2024-10-30 10:24] LABS: Basophils Absolute Auto 0.1 X10*3/uL (0.0-0.2); Basophils Percent Auto 0.6 % (0-2); Eosinophils Absolute Auto 0.3 X10*3/uL (0.0-0.4); Eosinophils Percent Auto 3.6 % (0-4); Hematocrit 33.6 % (37.0-47.0); Hemoglobin 10.8 g/dl (12.0-16.0); Imm Gran Abs Auto 0.04 X10*3/uL (0.00-0.03); Imm Gran Pct Auto 0.5 % (0.0-0.4); Lymphocytes Absolute Auto 3.5 X10*3/uL (1.2-4.9); Mean Corpuscular HGB Conc 32.1 g/dl (31.0-35.0); Mean Corpuscular Hemoglobin 25.5 pg (27.0-33.0); Mean Corpuscular Volume 79.2 fL (80.0-98.0); Mean Platelet Volume 10.5 fL (9.4-12.3); Monocytes Absolute Auto 0.5 X10*3/uL (0.1-1.2); Monocytes Percent Auto 5.5 % (2-11); Neutrophils Absolute Auto 4.4 x10*3/uL (2.0-8.3); Neutrophils Percent Auto 49.8 % (45-73); Platelet Count 385 X10*3/uL (160-400); Red Blood Count 4.24 X10*6/uL (4.20-5.50); Red Cell Distribution Width 13.4 % (11.0-16.0); White Blood Count 8.8 X10*3/uL (4.8-10.8)
[2024-10-30 10:41] LABS: Alanine Aminotransferase 12 U/L (0-31); Albumin Level 4.1 g/dL (3.5-5.0); Alkaline Phosphatase 44 U/L (39-117); Anion Gap 16 (12-20); Aspartate Amino Transferase 19 U/L (5-31); Bilirubin Total 0.3 mg/dL (0.0-1.0); Blood Urea Nitrogen 26 mg/dL (9-16); Calcium 8.8 mg/dL (8.4-10.2); Carbon Dioxide 23 mmol/L (22-29); Chloride 106 mmol/L (96-108); Cholesterol 152 mg/dL (<200); Estimated Glomerular Filt Rate 43; Glucose Fasting 133 mg/dL (60-99); HDL Cholesterol 63 mg/dL (>40); LDL Cholesterol Calculated 73 mg/dL (<100); Potassium 4.7 mmol/L (3.3-5.1); Sodium 140 mmol/L (135-145); Total Protein 7.3 g/dL (6.5-8.0); Triglycerides 83 mg/dL (<150)
[2024-10-30 10:57] LABS: TSH reflex Free T4 0.34 uIU/mL (0.32-4.0); Vitamin D 25-OH Total 55.9 ng/mL (>30)
== END 2024-10-30 08:58 | disposition home or self-care (01) ==
LOC: HO.HMGCLDS 08:57
PROVIDERS: PCP Nurse Practitioner Family; Visit Provider Nurse Practitioner Family
DX: E11.9 Type 2 diabetes mellitus without complications (principal); E55.9 Vitamin D deficiency, unspecified
CPT/HCPCS: 36415; 80053; 80061; 81003; 82306; 84443; 85025

== ENCOUNTER 2024-11-05 07:17 | Outpatient (AMB) | payer OTHER, SELFPAY ==
--- OUTSIDE RECORDS SUMMARY | 2024-11-05 07:19 | XMS_ITS | Encounter Summary ---
Author Organization [employer] Address [address] [facility] [address]t [place] [address] Care Team Providers Care Electric Melt Operator Name Role Phone Unavailable Primary Care [...]
--- OUTSIDE RECORDS SUMMARY | 2024-11-05 07:19 | XMS_ITS | Clinical Summary ---
Author Organization [facility] it Address [id number] [place] [phone] Care Team Providers Care Chairman & Chief Executive Officer Name Role Phone Unavailable Primary Care Provider [...]
--- OUTSIDE RECORDS SUMMARY | 2024-11-05 07:20 | XMS_ITS | Clinical Summary ---
Author Organization [employer] Address [address] [facility] [address]t [place] [address] Care Team Providers Care Hack Driver Name Role Phone Unavailable Primary Care [...] age to complete this topic Insurance [facility]
--- NOTE | 2024-11-05 07:39 | MHC.PC.OV ---
Vital Signs 11/05/24 07:43 Height 4 ft 9 in Weight 152 lb BMI 32.9 BP 130/72 Blood Pressure Location Rt brachial Position Sitting Respiration 15 Pulse 98 Pulse Source Pulse Oximeter Temp 97.8 F Temp Source Oral Pulse Oximetry (%) 96 Oxygen Delivery Method Room Air Intake Visit Reasons: Annual PE/Overdue Intake Note: Pt is here today for her PE Allergies No Known Allergies [No Known Allergies*] Allergy (Verified 11/05/24 08:27) Medication List - Last Reconciled 11/05/24 by SARITHA AmaralP- alendronate 70 mg PO QWEEK alprazolam 0.5 mg PO BID PRN 30 days amlodipine 2.5 mg PO DAILY aspirin 1 tab PO DAILY atorvastatin 20 mg PO DAILY blood-glucose meter (FreeStyle Lite Meter kit) Free style Lite device check sugar 2 times a day calcium carbonate-vitamin D3 600 mg-12.5 mcg (500 unit) (Calcium with Vit D3) 1 cap PO BID 30 days cyanocobalamin (vitamin B-12) 1,000 mcg IM .[id number] 90 days diclofenac sodium 1% (Voltaren Arthritis Pain) 4 grams topical BID PRN duloxetine 30 mg PO DAILY 90 days ezetimibe 10 mg PO DAILY 90 days fenofibrate nanocrystallized 145 mg PO DAILY 90 days ferrous sulfate 325 mg PO BID fluoxetine 40 mg PO DAILY FreeStyle Lite Strips (blood sugar diagnostic) Use to check blood sugar twice daily, fasting and a random blood sugar during the day. NS irbesartan 150 mg PO DAILY 90 days lancets Use to check blood sugar twice daily, fasting and a random blood sugar during the day. levothyroxine 50 mcg PO QAM mecobalamin (vitamin B12) 1,000 mcg PO DAILY metformin 500 mg PO BID 90 days omeprazole 20 mg PO BID pen needle, diabetic (BD Ultra-Fine Micro Pen Needle) Once a week with Ozempic quetiapine 200 mg PO BEDTIME semaglutide (Ozempic) 0.5 mg (0.736 mL) subcut QWEEK 30 days zolpidem ER 12.5 mg PO BEDTIME PRN Tobacco use date assessed: 11/05/24 Fall risk assessment: No Falls in past year Last assessed Fall Risk: 11/05/24 Dental Screening Dental Screen Date: 11/05/24 Did you have a dental visit in the last 12 months?: No Did you have a dental problem in the last 6 months where you did not have access to dental care?: No Was dental information given to patient?: No HPI Annual PE/Overdue HPI Details History of Present Illness The patient is a 74-year-old female presenting for an annual physical examination. She has a history of Type 2 Diabetes Mellitus, which is regularly monitored, and she denies symptoms such as polyuria, polydipsia, or neuropathy. She is under regular care of a rfid systems engineer. Her history indicates mild anemia and a previously diagnosed Vitamin B12 deficiency, though her last B12 levels in the fall were normal. The patient has a known condition of multinodular thyroid nodules, for which she has undergone multiple fine-needle aspiration biopsies, all yielding benign results. An refueling rampman was managing her condition, and it is recommended that she has annual ultrasounds of the thyroid, with an upcoming appointment scheduled for November. She is currently on alendronate for osteoporosis, which she tolerates well. A bone density test was ordered but not yet performed and is due today. She prefers traditional glucose monitoring methods for diabetes management and does not often check her sugar levels. Her mammogram appointment is scheduled for the future (according to pt), and the patient has declined a repeat colonoscopy this year, opting for a Cologuard test instead. Health Maintenance - Regular nephrology follow-ups for diabetes management - Yearly thyroid ultrasound scheduled for multinodular thyroid - Bone density imaging ordered for osteoporosis - Mammogram appointment scheduled - Cologuard test order placed due to decline of colonoscopy - Scheduled eye exam for regular checks Social History - Current smoker - Uses oxygen therapy Review of Systems - Endocrine: Denies polyuria or polydipsia - Neurological: Denies neuropathy -denies blood in stool, denies any constipation/diarrhea, N/V, denies any dizziness, abd pains, urinary symptoms Physical Exam General: Cooperative, healthy appearing, comfortable, no acute distress and well developed, obese Orientation: Patient oriented x3 Limitations: No limitations Head: Normal to inspection Ears: Hearing grossly normal bilaterally Nose: Normal external nose present Face and sinus: Normal facial exam Eyes: Appearance normal, both eyes and all related structures Neck: Normal visual inspection and Yes full ROM Respiratory: Normal respiratory effort and able to speak in complete sentences. Clear to auscultation bilaterally Cardiovascular: Regular rate and rhythm. Normal S1 and S2. systolic murmur present GI: Normal to inspection. Soft to palpation and nontender Skin: tip of nose with darker, macular, circular lesion Neuro: Patient oriented x3 Extremities: Normal to inspection. Feet were intact by positive sensation with use of monofilament Results Plan - Type 2 Diabetes Mellitus: Continue regular follow-up with nephrology. Maintain current glucose management strategy as patient is not interested in alternative monitoring methods. - Mild Anemia: Monitor status and investigate if necessary. Consider follow-up based on progression or lab results. - Multinodular Thyroid Nodule: Schedule ultrasound for November; continue annual monitoring. - Osteoporosis: Ensure bone density imaging is completed today; continue alendronate therapy. Discussion Notes During the visit, I discussed the importance of regular follow-up for her diabetes and the potential risks of not frequently monitoring her blood sugar. We talked about her mild anemia and previous Vitamin B12 deficiency, noting that her B12 levels were normal at last check. For her multinodular thyroid nodule, we agreed to adhere to yearly ultrasound monitoring based on her refueling rampman's advice. We also reviewed her osteoporosis management, ensuring that a bone density test will be performed. The patient expressed her preference for the Cologuard test over a repeat colonoscopy, and we discussed the appropriateness of this choice. Follow-up plans with nephrology, endocrinology, and for her eye exam are discussed and noted. Patient Instructions - Adhere to nephrology appointments and prescribed management plans for diabetes. - Continue taking alendronate for osteoporosis. - Complete the scheduled thyroid ultrasound in November. - Proceed to the mammogram as scheduled. - Complete the bone density scan as ordered. - Follow up with eye care for the upcoming appointment. - Use Cologuard as an alternative to colonoscopy this year. [facility] Medical History (Updated 11/05/24 @ 08:27 by Bryan Luz, [facility]) Vitamin B 12 deficiency Elevated cholesterol GERD (gastroesophageal reflux disease) CKD (chronic kidney disease) HTN (hypertension) Decreased renal function Multinodular thyroid Hypothyroidism Vitamin D deficiency T2DM (type 2 diabetes mellitus) Osteoporosis Surgical History (Updated 10/27/24 @ 14:25 by Kathleen Avina MA) H/O knee surgery Hx of thyroidectomy History of surgery on wrist Hx of cholecystectomy Family History Father Emphysema of lung Mother Myocardial infarction Hypertension Cardiovascular disease Social History Housing: Condominium Patient Tobacco Use Status: Never used Tobacco e-Cigarette/Vaping Use: Never Used Current occupational status: retired Cognitive needs: No Hearing needs: Yes Vision needs: Yes Questionnaire Thrive Questionnaire Date Thrive assessed: 11/26/23 PATRICK-7 AMB Questionnaire PATRICK-7 Date PATRICK - 7 assessed: 11/26/23 Source: Developed by Drs. Wolf Ortez, Otilia Rushing, Jeramie Mccracken and colleagues, with an educational rose from [employer]. Physical exam (Primary Care) Vital Signs: Last Vital Signs Temp 97.8 F 11/05/24 07:43 Pulse 98 11/05/24 07:43 Resp 15 11/05/24 07:43 BP 130/72 11/05/24 07:43 Pulse Ox 96 11/05/24 07:43 Oxygen Delivery Method Room Air 11/05/24 07:43 BMI result Body Mass Index 32.9 Tobacco/Smoking Status: Tobacco use Status Tobacco use date assessed 11/05/24 11/05/24 07:40 Patient Tobacco Use Status Never used Tobacco 11/05/24 07:40 e-Cigarette/Vaping Use Never Used 11/05/24 07:40 Thrive Assessment: Date of Thrive Assessment Date Thrive assessed 11/26/23 11/05/24 07:40 Coding Level of Care Code Est Pt Prev Care >65y(21785) Diagnoses Multinodular thyroid E04.2 Osteoporosis, unspecified osteoporosis type, unspecified pathological fracture presence M81.0 Osteoporosis type: unspecified Presence of current pathological fracture: unspecified Anemia D64.9 Skin lesions L98.9 Physical exam Z00.00 Assessment & Plan Assessment & Plan (1) Multinodular thyroid: Code(s): E04.2 - Nontoxic multinodular goiter Category: Medical (2) Osteoporosis: Code(s): M81.0 - Age-related osteoporosis without current pathological fracture Category: Medical Qualifiers: Osteoporosis type: unspecified Presence of current pathological fracture: unspecified Qualified Code(s): M81.0 - Age-related osteoporosis without current pathological fracture (3) Anemia: Code(s): D64.9 - Anemia, unspecified Category: Medical (4) Skin lesions: Code(s): L98.9 - Disorder of the skin and subcutaneous tissue, unspecified Category: Medical (5) Physical exam: Code(s): Z00.00 - Encounter for general adult medical examination without abnormal findings Category: Medical Plan . Orders: Orders XR DEXA axial skeleton Today M81.0 - Age-related osteoporosis without current pathological fracture Complete Blood Count Auto Diff Today D64.9 - Anemia, unspecified IRON PROFILE Today D64.9 - Anemia, unspecified Ferritin Today D64.9 - Anemia, unspecified Reticulocyte Count Today D64.9 - Anemia, unspecified Vitamin B12 and Folate Today D64.9 - Anemia, unspecified Lactate Dehydrogenase Today D64.9 - Anemia, unspecified Referrals Cologuard Test Z12.11 - Encounter for screening for malignant neoplasm of colon, Z12.12 - Encounter for screening for malignant neoplasm of rectum Dermatology Referral L98.9 - Disorder of the skin and subcutaneous tissue, unspecified
[2024-11-05 07:43] VITALS: BP 130/72; PULSE 98; RESP 15; TEMP 36.6; O2SAT 96; BMI 32.9
== END 2024-11-05 08:13 | disposition home or self-care (01) ==
PROVIDERS: PCP Nurse Practitioner Family; Visit Provider Nurse Practitioner Family
DX: E04.2 Nontoxic multinodular goiter (principal); M81.0 Age-related osteoporosis without current pathological fracture; D64.9 Anemia, unspecified; L98.9 Disorder of the skin and subcutaneous tissue, unspecified; Z00.00 Encounter for general adult medical examination without abnormal findings; Z13.9 Encounter for screening, unspecified; E11.65 Type 2 diabetes mellitus with hyperglycemia

== ENCOUNTER 2024-11-05 07:17 | Outpatient (REF) | payer OTHER, SELFPAY ==
--- OUTSIDE RECORDS SUMMARY | 2024-11-05 12:10 | XMS_ITS | Clinical Summary ---
Author Organization [employer] Address [address] [facility] [address] [place] [address] Care Team Providers Care Assistant Terminal Manager Name Role Phone Unavailable Primary Care Provider [...] patient's age to complete this topic Insurance [facility]
--- OUTSIDE RECORDS SUMMARY | 2024-11-05 12:10 | XMS_ITS | Clinical Summary ---
Author Organization [facility] it Address [id number] [place] [phone] Care Team Providers Care Control Supervisor Name Role Phone Unavailable Primary Care Provider [...]
--- OUTSIDE RECORDS SUMMARY | 2024-11-05 12:10 | XMS_ITS | Encounter Summary ---
Author Organization [employer] Address [address] [facility] [address] [place] [address] Care Team Providers Care Garage Mechanic Name Role Phone Unavailable Primary Care Provider [...]
[2024-11-05 13:19] LABS: MANUAL DIFF FLAG NO
[2024-11-05 13:40] LABS: Basophils Absolute Auto 0.1 X10*3/uL (0.0-0.2); Basophils Percent Auto 0.5 % (0-2); Eosinophils Absolute Auto 0.4 X10*3/uL (0.0-0.4); Eosinophils Percent Auto 3.6 % (0-4); Hematocrit 32.2 % (37.0-47.0); Hemoglobin 10.4 g/dl (12.0-16.0); Imm Gran Abs Auto 0.03 X10*3/uL (0.00-0.03); Imm Gran Pct Auto 0.3 % (0.0-0.4); Immature Retic Fraction 8.3 % (3.0-15.9); Lymphocytes Percent Auto 30.3 % (20-40); Mean Corpuscular HGB Conc 32.3 g/dl (31.0-35.0); Mean Corpuscular Hemoglobin 25.5 pg (27.0-33.0); Mean Corpuscular Volume 78.9 fL (80.0-98.0); Mean Platelet Volume 10.7 fL (9.4-12.3); Monocytes Absolute Auto 0.4 X10*3/uL (0.1-1.2); Monocytes Percent Auto 4.3 % (2-11); Platelet Count 339 X10*3/uL (160-400); Red Blood Count 4.08 X10*6/uL (4.20-5.50); Red Cell Distribution Width 13.6 % (11.0-16.0); Retic HGB Equivalent 29.1 pg (30.0-35.0); Reticulocyte Percent 1.2 % (0.5-1.8); White Blood Count 9.8 X10*3/uL (4.8-10.8)
[2024-11-05 13:57] LABS: Iron 55 mcg/dL (30-160); Lactate Dehydrogenase 247 U/L (122-220); Percent Iron Saturation 15 % (15-50); Total Iron Binding Capacity 356 mcg/dL (228-428); Unsaturated Iron Binding 301 ug/dL
[2024-11-05 14:12] LABS: Ferritin 104 ng/mL (10-250)
[2024-11-05 14:25] LABS: Folate 13.4 ng/mL (> or = 4.0); Vitamin B12 724 pg/mL (200-900)
== END 2024-11-05 07:18 | disposition home or self-care (01) ==
LOC: HO.HMGCLDS 07:17
PROVIDERS: PCP Nurse Practitioner Family; Visit Provider Nurse Practitioner Family
DX: Z00.00 Encounter for general adult medical examination without abnormal findings (principal); E04.2 Nontoxic multinodular goiter; M81.0 Age-related osteoporosis without current pathological fracture; D64.9 Anemia, unspecified; L98.9 Disorder of the skin and subcutaneous tissue, unspecified; E11.9 Type 2 diabetes mellitus without complications
CPT/HCPCS: 36415; 82607; 82728; 82746; 83036; 83540; 83615; 85025; 85045; 99397

== ENCOUNTER 2024-12-02 11:08 | Outpatient (REF) | payer OTHER, SELFPAY ==
--- NOTE | ~2024-12-02 | US_ITS ---
EXAMINATION: US THYROID HISTORY: E04.2 - Nontoxic multinodular goiter TECHNIQUE: Real-time grayscale ultrasound imaging was performed and images were reviewed. COMPARISON: Comparison is made with the prior examination dated 12/06/2023. FINDINGS: SIZE: The right thyroid lobe measures 7.8 x 3.5 x 2.5 cm. The left thyroid lobe is surgically absent. FLOW: The right lobe is hypervascular. ECHOGENICITY: The echotexture of the gland is markedly heterogeneous. NODULES: On today's examination, there appears to be a single nodule occupying the majority of the right thyroid lobe as described below: Nodule #: 1 Location: Mid to lower pole measuring 5.4 x 3.7 x 2.5 cm. Due to the marked heterogeneity of the gland, it is difficult to make a comparison with the prior study. Shape: Taller than wide (3 points) Margins: Ill-defined (0 points) Echotexture: Isoechoic (1 point) Composition: Solid (2 points) Calcifications: Macrocalcifications (1 point) Total points: 7 TIRADS: TR5: Highly suspicious. US/US thyroid IMPRESSION: Status post left thyroidectomy. Dominant nodule occupying the majority of the right thyroid lobe. Comparison is difficult due to the marked heterogeneity of the gland. If biopsy of this nodule has not already been performed, biopsy is recommended. ACR TI-RADS Guidelines TR1: Benign, No follow-up or biopsy required TR2: Not Suspicious, No biopsy indicated TR3: Mildly Suspicious, FNA if >= 2.5 cm, Follow if >= 1.5 cm TR4: Moderately Suspicious, FNA if >= 1.5 cm, Follow if >= 1.0 cm TR5: Highly Suspicious, FNA if >= 1.0 cm, Follow if >= 0.5 cm Electronically signed by: Wofl Pinedo MD 12/02/2024 01:57 PM EDT
--- OUTSIDE RECORDS SUMMARY | 2024-12-02 13:28 | XMS_ITS | Encounter Summary ---
Author Organization [employer] Address [address] [facility] 7t [place] [address] Care Team Providers Care Electronics Hardware Design Engineer Name Role Phone Unavailable Primary Care Provider [...]
--- OUTSIDE RECORDS SUMMARY | 2024-12-02 13:28 | XMS_ITS | Clinical Summary ---
Author Organization [facility] it Address [address] [place] [id number] Care Team Providers Care Short Piece Handler Name Role Phone Unavailable Primary Care Provider [...]
--- OUTSIDE RECORDS SUMMARY | 2024-12-02 13:28 | XMS_ITS | Clinical Summary ---
Author Organization [employer] Address [address] [facility] 7t [place] [address] Care Team Providers Care Senior Living Sales Counselor Name Role Phone Unavailable Primary Care Provider [...] patient's age to complete this topic Insurance [facility]
== END 2024-12-02 11:09 | disposition home or self-care (01) ==
LOC: HO.US 11:08
PROVIDERS: PCP Nurse Practitioner Family; Visit Provider Nurse Practitioner Family
DX: E04.2 Nontoxic multinodular goiter (principal)
CPT/HCPCS: 76536

== ENCOUNTER → 2024-12-02 11:10 | Outpatient (BNV) | payer OTHER, SELFPAY | PROVIDERS: PCP Nurse Practitioner Family; Visit Provider Radiology Diagnostic Radiology | DX: E04.1 Nontoxic single thyroid nodule (principal) | CPT/HCPCS: 76536 ==

== ENCOUNTER 2024-12-03 12:19 | Outpatient (AMB) | payer OTHER, SELFPAY ==
[2024-12-03 13:12] VITALS: BP 138/90; PULSE 114; TEMP 36.8; O2SAT 95; BMI 33.2
--- NOTE | 2024-12-03 13:12 | AM.OFFWIN_ITS ---
Intake Vital Signs 12/03/24 13:12 Height 4 ft 9 in Weight 153 lb 6 oz BMI 33.2 BP 138/90 H Blood Pressure Location Lt brachial Position Sitting Pulse 114 H Pulse Source Pulse Oximeter Temp 98.2 F Temp Source Oral Pulse Oximetry (%) 95 Oxygen Delivery Method Room Air Intake Visit Reasons: EP-dizziness & nauseas Intake Note: Pt presents to the office today for c/o dizziness and nausea x3 days. Patient Tobacco Use Status: Never used Tobacco Allergies No Known Allergies [No Known Allergies*] Allergy (Verified 12/03/24 13:17) HPI HPI Comments History of Present Illness Details Patient interpreted for her, she declined. History of Present Illness - The patient is a 74-year-old female pr esenting with complaints of vertigo x 3 days. - Symptoms began suddenly upon waking, c haracterized by severe room spinning. - Vertigo is exacerbated when the stomac h is empty; relief is noted with food intake. - No associated nausea, vomiting, headac he, or other changes in her chronic hearing loss or ringing in her ears. - Mechanical adjustments, such as crawli ng, have been utilized for mobility during vertigo episodes. - She denies any new ear pain, feeling o f fullness or recent head congestion or cough. - No prior history of similar symptoms, and the patient remains ambulatory without current difficulty. Physical Exam General: Cooperative, healthy appearing, comfortable, no acute distress and well developed Orientation: Patient oriented x3 Limitations: No limitations Head: Normal to inspection Ears: Hearing grossly normal bilaterally, TMs normal bilat Nose: Normal external nose present Face and sinus: Normal facial exam Eyes: Appearance normal, both eyes and all related structures, no nystagmus, see eyes under PE below Neck: Normal visual inspection and Yes full ROM Respiratory: Normal respiratory effort and able to speak in complete sentences Skin: No rashes or lesions noted Neuro: Patient oriented x3 Extremities: Normal to inspection PFSH Medical History Vitamin B 12 deficiency Elevated cholesterol GERD (gastroesophageal reflux disease) CKD (chronic kidney disease) HTN (hypertension) Decreased renal function Multinodular thyroid Hypothyroidism Vitamin D deficiency T2DM (type 2 diabetes mellitus) Osteoporosis Surgical History H/O knee surgery Hx of thyroidectomy History of surgery on wrist Hx of cholecystectomy Family History Father Emphysema of lung Mother Myocardial infarction Hypertension Cardiovascular disease Social History Housing: Condominium Patient Tobacco Use Status: Never used Tobacco e-Cigarette/Vaping Use: Never Used Current occupational status: retired Cognitive needs: No Hearing needs: Yes Vision needs: Yes Review of Systems Const All systems reviewed & are unremarkable except as noted in HPI and below Physical Exam Vital Signs: Last Vital Signs Temp 98.2 F 12/03/24 13:12 Pulse 114 H 12/03/24 13:12 BP 138/90 H 12/03/24 13:12 Pulse Ox 95 12/03/24 13:12 Oxygen Delivery Method Room Air 12/03/24 13:12 BMI result Body Mass Index 33.2 Eyes General: appearance normal, both eyes and all related structures Visual Rodriguez: normal visual rodriguez by confrontation Alignment and Position: alignment normal and position normal Periorbital: periorbital findings normal Eyelids: Yes eyelids normal Conjunctivae: conjunctivae normal Sclerae: sclerae normal Pupils: Equal, round and reactive pupils present and Pupils normal by confrontation EOM: EOMs intact bilaterally Neuro Cranial nerves: Yes Equal, round and reactive pupils present Assessment & Plan Assessment & Plan (1) BPPV (benign paroxysmal positional vertigo): Code(s): H81.10 - Benign paroxysmal vertigo, unspecified ear Qualifiers: Laterality: right Qualified Code(s): H81.11 - Benign paroxysmal vertigo, right ear Plan: The patient was diagnosed with benign paroxysmal positional vertigo BPPV, and management includes implementing the Le and Luther-Hallpike maneuvers to reposition ear stones causing vertigo. Educational resources were recommended for proper execution at home. Care was taken to warn the patient of potential nausea during maneuvers. Maneuvers can also be guided by online videos if literature was insufficient. The patient was counseled that symptoms are usually benign and to seek emergency services if chest pain emerges or if symptoms severely worsen. The focus remains on at-home management under awareness of symptoms with no immediate interventions required for other noted conditions like chronic hearing loss at this time. Patient was informed and verbally consented to the use of an ambient scribe for clinic note documentation during this visit. Coding Level of Care Code Est Pt Level 3 (08371) Diagnoses Benign paroxysmal positional vertigo of right ear H81.11 Laterality: right
--- OUTSIDE RECORDS SUMMARY | 2024-12-03 14:46 | XMS_ITS | Encounter Summary ---
Author Organization [employer] Address [address] [facility] 7t [place] [address] Care Team Providers Care Recreation Coordinator Name Role Phone Unavailable Primary Care [...]
--- OUTSIDE RECORDS SUMMARY | 2024-12-03 14:46 | XMS_ITS | Clinical Summary ---
Author Organization [employer] Address [address] [facility] 7t [place] [address] Care Team Providers Care Refrigerator Repair Technician Name Role Phone Unavailable Primary Care Provider [...] patient's age to complete this topic Insurance [facility]
--- OUTSIDE RECORDS SUMMARY | 2024-12-03 14:46 | XMS_ITS | Clinical Summary ---
Author Organization [facility] it Address [address] [place] [id number] Care Team Providers Care Turn Down Attendant Name Role Phone Unavailable Primary Care Provider [...]
== END 2024-12-03 13:49 | disposition home or self-care (01) ==
PROVIDERS: PCP Nurse Practitioner Family; Visit Provider Physician Assistant
DX: H81.11 Benign paroxysmal vertigo, right ear (principal)

== ENCOUNTER → 2024-12-03 12:19 | Outpatient (BNVA) | payer OTHER, SELFPAY | PROVIDERS: PCP Nurse Practitioner Family; Visit Provider Physician Assistant | DX: H81.11 Benign paroxysmal vertigo, right ear (principal) | CPT/HCPCS: 99212 ==

== ENCOUNTER 2024-12-25 11:00 | Outpatient (RCR) | payer OTHER, SELFPAY ==
--- NOTE | 2024-11-14 13:42 | MHC.PT.EP ---
[facility] [place] [facility] [place] [facility] [place] [facility] [address] Peyton Bethea [address] [phone] F: [phone] F: [phone] F: [phone] F: [phone] Physical Therapy Plan of Care Date of Evaluation: 11/14/24 Date of Surgery: 10/06/2024 Diagnosis: pain in R knee Assessment: Patient is a 74 year old female presenting to PT with complaints of pain in her R knee s/p menisectomy 10/06/2024. She presents today with impairments in pain, knee ROM, knee strength, hip strength. Pt's current occupation is retired, with baseline physical activities including ambulating, stair negotiation, ADLs. Pt expresses skilled nursing goal of reducing pain, and is motivated to work towards this in PT. Clinical presentation today is most consistent with signs and sx associated with R knee pain s/p R menisectomy on 10/06/2024 and pt will benefit from skilled PT 2 week x 4 weeks to address the following problems and impairments noted upon evaluation: pain, knee ROM, knee strength, hip strength. These problems limit the patient with the following functional activities: ambulating, stair negotiation, ADLs. The prescribed treatment plan of care is medically necessary. Co-morbidities of T2DM, osteoporosis were identified and taken into considerations of plan of care. Pt was educated on HEP, role of PT, prognosis, POC. Frequency and Duration: The patient will be seen 2 x week x 4 weeks Short Term Goals: Pt will demonstrate improved R knee ROM to equal B in 2 weeks. Pt will demonstrate improved knee MMT strength by 1/3 grade in 2 weeks. Inside Sales Account Manager Goals: Pt will demonstrate improved LEFI score by 9 points in 4 weeks for improved functional mobility. Pt will demonstrate ability to negotiate stairs with min to no pain in 4 weeks for return to PLOF. Pt will demonstrate ability to ambulate and negotiate stairs with min to no pain in 4 weeks for return to PLOF. Treatment Plan: Modalities to reduce pain, spasms and effusion. Manual therapy to restore motion and function. Therapeutic exercise to improve strength and flexibility. Neuromuscular re-education for posture and balance. Therapeutic activities to return to functional activities of daily living. Electronically signed by: Lise Warren, PT, DPT, ATC Please sign and return to therapist. Thank you for your referral.
--- NOTE | 2024-12-25 11:46 | MHC.PT.DC ---
[facility] [place] Office [place] Office [place] Office [address] Peyton Bethea [address] [phone] F: [phone] F: [phone] F: [phone] F: [phone] Physical Therapy Discharge Report Diagnosis: pain in R knee Date of Surgery: 10/06/2024 Date of Evaluation: 11/14/24 Date of Discharge: 12/25/24 Treatments to Date: 9 Cancellations to Date: 3 No Shows to Date: 0 Discharge Status: Achieved Goals Improved Function Independent with HEP Discharge Summary: 12/25/2024: Pt has made good progress since start of care. Her pain is better but she is still experiencing some low level discomfort over the medial knee. Her strength and ROM is normal. She wants to return to [facility] however despite being encouraged to try this multiple times by this PT she has not yet gone to try it out yet so it is unclear if she will tolerate this activity. At this time max benefits of PT have been provided and skilled PT is no longer indicated based on her objective measures and goals. I recommend pt continue with her HEP at home to maintain strength gains. If her pain continues to linger I recommend following up with the MD. Electronically signed by: Lise Warren, PT, DPT, ATC Please sign and return to therapist. Thank you for your referral.
== END 2024-12-25 11:46 | disposition home or self-care (01) ==
LOC: HO.PTCHIC 11:00
PROVIDERS: PCP Nurse Practitioner Family; Visit Provider Orthopaedic Surgery
DX: M25.561 Pain in right knee (principal)
CPT/HCPCS: 97110; 97161

== ENCOUNTER 2025-01-21 10:14 | Outpatient (AMB) | payer OTHER, SELFPAY ==
--- NOTE | 2025-01-21 10:17 | MHC.OFFVIS ---
Vital Signs 01/21/25 10:25 Height 4 ft 9 in Weight 153 lb BMI 33.1 Intake Visit Reasons: OV RT knee 10/06/24 Intake Note: Consuelo is a 74 year old female who presents today for follow up after undergoing right knee arthroscopic surgery on 10/06/24. Patient report she completed formal physical therapy and has been doing eddie. Patient complains today of pain when going from sitting to standing position. She wonders if she should do physical therapy again. She denies any locking or giving way. She wishes to hold off on an injection at this time. Allergies No Known Allergies [No Known Allergies*] Allergy (Verified 01/21/25 10:25) Medication List - Last Reconciled 01/21/25 by Robe Galdamez MD alendronate 70 mg PO QWEEK alprazolam 0.5 mg PO BID PRN 30 days amlodipine 2.5 mg PO DAILY aspirin 1 tab PO DAILY atorvastatin 20 mg PO DAILY blood-glucose meter (FreeStyle Lite Meter kit) Free style Lite device check sugar 2 times a day calcium carbonate-vitamin D3 600 mg-12.5 mcg (500 unit) (Calcium with Vit D3) 1 cap PO BID 30 days cyanocobalamin (vitamin B-12) 1,000 mcg IM .A9ikrax 90 days diclofenac sodium 1% (Voltaren Arthritis Pain) 4 grams topical BID PRN duloxetine 30 mg PO DAILY 90 days ezetimibe 10 mg PO DAILY 90 days fenofibrate nanocrystallized 145 mg PO DAILY 90 days ferrous sulfate 325 mg PO BID fluoxetine 40 mg PO DAILY FreeStyle Lite Strips (blood sugar diagnostic) Use to check blood sugar twice daily, fasting and a random blood sugar during the day. NS irbesartan 150 mg PO DAILY 90 days lancets Use to check blood sugar twice daily, fasting and a random blood sugar during the day. levothyroxine 50 mcg PO QAM mecobalamin (vitamin B12) 1,000 mcg PO DAILY metformin 500 mg PO BID 90 days omeprazole 20 mg PO BID pen needle, diabetic (BD Ultra-Fine Micro Pen Needle) Once a week with Ozempic quetiapine 200 mg PO BEDTIME semaglutide (Ozempic) 0.5 mg (0.736 mL) subcut QWEEK 30 days zolpidem ER 12.5 mg PO BEDTIME PRN [facility] Medical History Vitamin B 12 deficiency Elevated cholesterol GERD (gastroesophageal reflux disease) CKD (chronic kidney disease) HTN (hypertension) Decreased renal function Multinodular thyroid Hypothyroidism Vitamin D deficiency T2DM (type 2 diabetes mellitus) Osteoporosis Surgical History H/O knee surgery Hx of thyroidectomy History of surgery on wrist Hx of cholecystectomy Family History Father Emphysema of lung Mother Myocardial infarction Hypertension Cardiovascular disease Social History Housing: Condominium Patient Tobacco Use Status: Never used Tobacco e-Cigarette/Vaping Use: Never Used Current occupational status: retired Cognitive needs: No Hearing needs: Yes Vision needs: Yes Physical Exam Vital Signs: BMI result Body Mass Index 33.1 Const Other: Well-nourished well-developed very friendly female awake alert and oriented x3 in no acute distress Extrem Other: Right knee examination shows that the surgical incisions are well healed, no erythema, mild crepitus with range of motion, no instability Assessment & Plan Assessment & Plan (1) Right knee pain: Code(s): M25.561 - Pain in right knee Category: Medical Plan Ms. Bauer presents with right knee pain due to degenerative joint disease. I had a lengthy discussion with the patient regarding the treatment options. She wishes to hold off on an injection at this time. I did give her a prescription to go to formal physical therapy. She will follow up with me on an as-needed basis should her symptoms not plateau at an unacceptable level over the next few months. Feel free to call me at any time should questions regarding her orthopedic management arise. I spent 21 minutes in reviewing the patient's records and imaging studies, seeing the patient and documenting in the medical record. Orders: Orders PT Evaluation and Treatment Today M25.561 - Pain in right knee Coding Level of Care Code Est Pt Level 3 (05393) Complex EM visit Add On G2211 Diagnoses Right knee pain M25.561
[2025-01-21 10:25] VITALS: BMI 33.1
--- OUTSIDE RECORDS SUMMARY | 2025-01-21 11:28 | XMS_ITS | Encounter Summary ---
Author Organization [employer] Address [address] [facility] 7t [place] [address] Care Team Providers Care Electrical Engineering Director Name Role Phone Unavailable Primary Care Provider Unavailabl e Encounter Details Date Type Department Care Team (Latest Contact Info) Description 09/29/2019 Abstract [facility] Dental, Provider, DDS Social History Tobacco [...]
--- OUTSIDE RECORDS SUMMARY | 2025-01-21 11:29 | XMS_ITS | Clinical Summary ---
Author Organization [employer] Address [address] [facility] 7t [place] [address] Care Team Providers Care Crusher Feeder Name Role Phone Unavailable Primary Care Provider [...] 2 - PCV) 09/09/2021 09/09/2020 COVID-19 Vaccine ( season) 2024 07/17/2023, 07/21/2022, 01/04/2022, Additional history [...] patient's age to complete this topic Insurance [facility] [employer] (O D-SNP) MICHAEL ALONSO [id number]
== END 2025-01-21 10:35 | disposition home or self-care (01) ==
LOC: HO.HOS 10:14
PROVIDERS: PCP Nurse Practitioner Family; Visit Provider Orthopaedic Surgery
DX: M25.561 Pain in right knee (principal)
CPT/HCPCS: 99213; G2211

== ENCOUNTER → 2025-01-21 10:14 | Outpatient (BNVA) | payer OTHER, SELFPAY | PROVIDERS: PCP Nurse Practitioner Family; Visit Provider Orthopaedic Surgery | DX: M25.561 Pain in right knee (principal) | CPT/HCPCS: 99212 ==

== ENCOUNTER 2025-02-11 15:09 | Outpatient (AMB) | payer OTHER, SELFPAY ==
[2025-02-11 15:27] VITALS: BP 124/60; PULSE 107; O2SAT 96; BMI 33.5
--- OUTSIDE RECORDS SUMMARY | 2025-02-11 15:53 | XMS_ITS | Clinical Summary ---
Author Organization [facility] ity Address [address] [place] [address] Care Team Providers Care Truck Terminal Manager Name Role Phone Unavailable Primary [...] 1999 Zoster Vaccines (1 of 2) 1999 COVID-19 Vaccine ( - 2023-2 5 season) 2024 RSV Immunization Adult Patie nts (1 - 1-dose 75+ series) 2024 Influenza Vaccine (Season Ended) 2025 HIB Vaccines Aged Out No longer eligi [...] age to complete this topic Meningococcal B Vaccine Aged Out No l onger eligible based on patient's age to complete this topic RSV Immunization Patients Un nile 20 months Aged Out No longer eligible b ased on patient's age to complete this topic Varicella Vaccines Aged Out No longer eligible based on patient's age to complete this topic
--- NOTE | 2025-02-11 16:00 | HO.NEPHOV ---
Vital Signs 02/11/25 15:27 Height 4 ft 9 in Weight 155 lb BMI 33.5 BP 124/60 Blood Pressure Location Rt brachial Position Sitting Pulse 107 H Pulse Source Pulse Oximeter Pulse Oximetry (%) 96 Oxygen Delivery Method Room Air Intake Visit Reasons: follow up-[facility] Renovator Machine Operator Required: Yes Renovator Machine Operator Services: Renovator Machine Operator Offered & Declined ( will translate) Accompanied by: Spouse Allergies No Known Allergies [No Known Allergies*] Allergy (Verified 02/11/25 15:29) HPI Comments Details: Consuelo is here for a routine follow up for CKD and hypertension. Non-smoker, no alcohol. she has DMII, controlled (last A1c 6.3). Sugars are in 120s when she checks them a few times weekly. Longstanding HTN, controlled, she is on amlodipine 2.5mg daily and irbesartan 150mg daily and blood pressures are controlled at home. Imagin08/20/24 renal ultrasound: IMPRESSION: 1. The kidneys are normal in appearance. 2. Mildly elevated velocities in the bilateral renal arteries consistent with less than 60% stenosis. reports she minimizes sugar intake and hydrates well. she does not take NSIADs reports she does add salt to her food, states she knows this is not good but it is not something she is going to change as benefits outweigh risks for her. Denies chest pain, dizziness, shortness of breath, abdominal pain, flank pain, back pain, urinary symptoms, rash, lower extremity swelling. [facility] Medical History (Reviewed 12/03/24 @ 13:13 by Shiloh Dubon [facility]) Vitamin B 12 deficiency Elevated cholesterol GERD (gastroesophageal reflux disease) CKD (chronic kidney disease) HTN (hypertension) Decreased renal function Multinodular thyroid Hypothyroidism Vitamin D deficiency T2DM (type 2 diabetes mellitus) Osteoporosis Surgical History H/O knee surgery Hx of thyroidectomy History of surgery on wrist Hx of cholecystectomy Family History Father Emphysema of lung Mother Myocardial infarction Hypertension Cardiovascular disease [facility] Patient Tobacco Use Status: Never used Tobacco e-Cigarette/Vaping Use: Never Used Current occupational status: retired Cognitive needs: No Hearing needs: Yes Vision needs: Yes Review of Systems Const Reports no additional complaints and Denies headache(s) ENT Denies dizziness, Denies headache(s), Denies epistaxis, Denies sinus pain and Denies sore throat Card Denies chest pain, Denies claudication, Denies leg edema, Denies lightheadedness, Denies dyspnea, Denies dyspnea on exertion and Denies orthopnea Resp Denies cough, Denies dyspnea and Denies dyspnea on exertion GI Denies abdominal pain, Denies constipation, Denies diarrhea, Denies nausea and Denies vomiting Denies hematuria, Denies difficulty voiding, Denies dysuria and Denies flank pain Musc Denies back pain and Denies joint swelling Skin/Breast Denies rash Neuro Denies dizziness and Denies headache(s) Physical Exam Vital Signs: Last Vital Signs Pulse 107 H 02/11/25 15:27 BP 124/60 02/11/25 15:27 Pulse Ox 96 02/11/25 15:27 Oxygen Delivery Method Room Air 02/11/25 15:27 BMI result Body Mass Index 33.5 Const General: no acute distress, alert and awake Neck Neck: Yes no JVD Resp Effort & Inspection: normal respiratory effort and able to speak in complete sentences Auscultation: clear to auscultation bilaterally Cardio Jugular venous distension: no JVD Rate: regular rate Rhythm: regular rhythm Heart sounds: S1 normal heart sound present and S2 normal heart sound present GI Palpation (GI): Soft to palpation and nontender General: Yes no CVA tenderness Back/Spine/Pelvis Back: no CVA tenderness Skin Rashes: no rashes Extrem General: No edema and No pedal edema Results Reviewed Nephrology Results: Hgb 10.4 g/dl (12.0-16.0) L 11/05/24 WBC 9.8 X10*3/uL (4.8-10.8) 11/05/24 Plt Count 339 X10*3/uL (160-400) 11/05/24 Sodium 140 mmol/L (135-145) 10/30/24 Potassium 4.7 mmol/L (3.3-5.1) 10/30/24 Chloride 106 mmol/L (96-108) 10/30/24 Carbon Dioxide 23 mmol/L (22-29) 10/30/24 BUN 26 mg/dL (9-16) H 10/30/24 Creatinine 1.21 mg/dL (0.5-1.4) 10/30/24 Calcium 8.8 mg/dL (8.4-10.2) 10/30/24 Urine Protein Negative mg/dL (Neg-Trace) 10/30/24 Assessment & Plan Assessment & Plan (1) CKD stage 3a, GFR 45-59 ml/min: Code(s): N18.31 - Chronic kidney disease, stage 3a Category: Medical Plan 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 blood pressures well controlled will get updated renal function studies- if creatinine is rising will consider reducing dose of ARB she has no proteinuria and diabetes has been well-controlled discussed the importance of reducing her sodium intake to aid in blood pressure control and to slow the progression of renal disease. she is a good candidate for Jardiance, will consider at next visit pending evolving data. she will follow up with Dr Kline in 6 months. Orders: Orders Basic Metabolic Panel 02/11/25 N18.30 - Chronic kidney disease, stage 3 unspecified Protein Creatinine Ratio, Ur 6 Months N18.31 - Chronic kidney disease, stage 3a Basic Metabolic Panel 6 Months N18.30 - Chronic kidney disease, stage 3 unspecified UA CC w/rflx Micro + Cult 6 Months N18.31 - Chronic kidney disease, stage 3a Coding Level of Care Code Est Pt Level 3 (59496) Diagnoses CKD stage 3a, GFR 45-59 ml/min N18.31
== END 2025-02-11 15:58 | disposition home or self-care (01) ==
PROVIDERS: PCP Nurse Practitioner Family; Visit Provider Internal Medicine Nephrology
DX: N18.31 Chronic kidney disease, stage 3a (principal)
CPT/HCPCS: 99213

== ENCOUNTER → 2025-02-11 15:09 | Outpatient (BNVA) | payer OTHER, SELFPAY | PROVIDERS: PCP Nurse Practitioner Family; Visit Provider Internal Medicine Nephrology | DX: N18.31 Chronic kidney disease, stage 3a (principal) | CPT/HCPCS: 99212 ==

== ENCOUNTER 2025-02-13 13:23 | Outpatient (REF) | payer OTHER, SELFPAY ==
--- OUTSIDE RECORDS SUMMARY | 2025-02-13 13:31 | XMS_ITS | Clinical Summary ---
Author Organization [facility] ity Address [address] [place] [address] Care Team Providers Care De Icer Element Winder Name Role Phone Unavailable Primary Care Provider [...]
== END 2025-02-13 13:24 | disposition home or self-care (01) ==
LOC: HO.MAMMO 13:23
PROVIDERS: PCP Nurse Practitioner Family; Visit Provider Nurse Practitioner Family
DX: Z12.31 Encounter for screening mammogram for malignant neoplasm of breast (principal)
CPT/HCPCS: 77063; 77067

== ENCOUNTER → 2025-02-13 13:30 | Outpatient (BNV) | payer OTHER, SELFPAY | PROVIDERS: PCP Nurse Practitioner Family; Visit Provider Internal Medicine | DX: Z12.31 Encounter for screening mammogram for malignant neoplasm of breast (principal) | CPT/HCPCS: 77063; 77067 ==

== ENCOUNTER 2025-03-12 09:50 | Outpatient (AMB) | payer OTHER, SELFPAY ==
[2025-03-12 09:58] VITALS: BP 142/90; PULSE 121; TEMP 37.4; O2SAT 95; BMI 33.0
--- NOTE | 2025-03-12 09:58 | MHC.PC.OV ---
Vital Signs 03/12/25 09:58 Height 4 ft 9 in Weight 152 lb 6 oz BMI 33.0 BP 142/90 H Blood Pressure Location Rt brachial Position Sitting Pulse 121 H Pulse Source Pulse Oximeter Temp 99.3 F Temp Source Oral Pulse Oximetry (%) 95 Oxygen Delivery Method Room Air Intake Visit Reasons: 4m follow up Molded Goods Inspector Trimmer Required: Yes Molded Goods Inspector Trimmer Language: Physical Therapy Instructor Name: Shade ([id number]) Information Interpreted: non-clinical & clinical Allergies No Known Allergies (No Known Allergies*) Allergy (Verified 03/12/25 10:39) Medication List - Last Reconciled 03/12/25 by Bryan Luz, [facility]- alendronate 70 mg PO QWEEK alprazolam 0.5 mg PO BID PRN 30 days amlodipine 2.5 mg PO DAILY aspirin 1 tab PO DAILY atorvastatin 20 mg PO DAILY blood-glucose meter (FreeStyle Lite Meter kit) Free style Lite device check sugar 2 times a day calcium carbonate-vitamin D3 600 mg-12.5 mcg (500 unit) (Calcium with Vit D3) 1 cap PO BID 30 days cyanocobalamin (vitamin B-12) 1,000 mcg IM .X2mlhtg 90 days diclofenac sodium 1% (Voltaren Arthritis Pain) 4 grams topical BID PRN duloxetine 30 mg PO DAILY 90 days ezetimibe 10 mg PO DAILY 90 days fenofibrate nanocrystallized 145 mg PO DAILY 90 days ferrous sulfate 325 mg PO BID fluoxetine 40 mg PO DAILY FreeStyle Lite Strips (blood sugar diagnostic) Use to check blood sugar twice daily, fasting and a random blood sugar during the day. NS irbesartan 150 mg PO DAILY 90 days lancets Use to check blood sugar twice daily, fasting and a random blood sugar during the day. levothyroxine 50 mcg PO QAM mecobalamin (vitamin B12) 1,000 mcg PO DAILY metformin 500 mg PO BID 90 days omeprazole 20 mg PO BID pen needle, diabetic (BD Ultra-Fine Micro Pen Needle) Once a week with Ozempic quetiapine 200 mg PO BEDTIME semaglutide (Ozempic) 0.5 mg (0.736 mL) subcut QWEEK 30 days zolpidem 10 mg PO BEDTIME Tobacco use date assessed: 03/12/25 Fall risk assessment: 1 Fall in past year Last assessed Fall Risk: 03/12/25 Dental Screening Dental Screen Date: 03/12/25 Did you have a dental visit in the last 12 months?: Yes Did you have a dental problem in the last 6 months where you did not have access to dental care?: No Was dental information given to patient?: Patient has dentist HPI 4m follow up HPI Details Chief Complaint The patient reports vomiting and right upper quadrant pain. History of Present Illness The patient is a 74-year-old female presenting with vomiting and right upper quadrant pain. She has been experiencing these symptoms since the of this month, with vomiting of bile and a lack of appetite. Additional symptoms include chills, a low-grade fever, and tachycardia. Physical examination revealed right upper quadrant tenderness and rebound tenderness. The patient had a cholecystectomy. She is alert and oriented but appears fatigued. Social History Health Maintenance Review of Systems - Gastrointestinal: Reports vomiting bile, right upper quadrant pain, and lack of appetite. - General: Reports chills and fatigue. - Cardiovascular: Reports tachycardia. Physical Exam General: Cooperative, fatigued, comfortable, no acute distress and well developed Orientation: Patient oriented x3 Limitations: No limitations Head: Normal to inspection Ears: Hearing grossly normal bilaterally Nose: Normal external nose present Face and sinus: Normal facial exam Eyes: Appearance normal, both eyes and all related structures Neck: Normal visual inspection and Yes full ROM Respiratory: Diminished bilaterally, able to speak in complete sentences Cardiovascular: Tachycardic GI: Right upper quadrant tenderness noted with palpation, some rebound tenderness noted Skin: No rashes or lesions noted Neuro: Patient oriented x3 Extremities: Normal to inspection Results Plan The patient was referred to the emergency room at [facility] for further evaluation and management of her symptoms, including vomiting, right upper quadrant pain, and tachycardia. The referral was made to ensure comprehensive diagnostic workup and appropriate treatment, considering her history of cholecystectomy and current presentation. Discussion Notes I discussed with the patient the need for further evaluation at the emergency room due to her symptoms of vomiting, right upper quadrant pain, and tachycardia. I explained that the emergency room would be able to provide a comprehensive diagnostic workup and appropriate treatment. Patient Instructions - Proceed to the emergency room at [facility] for further evaluation and treatment. [facility] Medical History Vitamin B 12 deficiency Elevated cholesterol GERD (gastroesophageal reflux disease) CKD (chronic kidney disease) HTN (hypertension) Decreased renal function Multinodular thyroid Hypothyroidism Vitamin D deficiency T2DM (type 2 diabetes mellitus) Osteoporosis Surgical History H/O knee surgery Hx of thyroidectomy History of surgery on wrist Hx of cholecystectomy Family History Father Emphysema of lung Mother Myocardial infarction Hypertension Cardiovascular disease Social History [facility]: [facility] Patient Tobacco Use Status: Never used Tobacco e-Cigarette/Vaping Use: Never Used Current occupational status: retired Cognitive needs: No Hearing needs: Yes Vision needs: Yes Questionnaire PHQ-9 Over the last 2 weeks, how often have you been bothered by any of the following problems? 1. Little interest or pleasure in doing things: not at all 2. Feeling down, depressed, or hopeless: not at all 3. Trouble falling or staying asleep, or sleeping too much: not at all 4. Feeling tired or having little energy: not at all 5. Poor appetite or overeating: not at all 6. Feeling bad about yourself - or that you are a failure or have let yourself or your family down: not at all 7. Trouble concentrating on things, such as reading the newspaper or watching television: not at all 8. Moving or speaking so slowly that other people could have noticed. Or the opposite - being so fidgety or restless that you have been moving around a lot more than usual: not at all 9. Thoughts that you would be better off or of hurting yourself in some way: not at all Total score: 0 Depression Screening Interpretation: Negative Depression Screening Done: Yes 56914 - PHQ-9 Billing: Yes Source: Developed by Drs. Wolf Ortez, Otilia Rushing, Jeramie Mccracken and colleagues, with an educational rose from [email or web address]. Thrive Questionnaire Date Thrive assessed: 03/12/25 I am a: Patient What is your living situation today?: I have a steady place to live Within the past 12 months, did the food you bought not last and you didn't have the money to get more?: Never true Within the past 12 months, did you worry whether your food would run out before you got money to buy more?: Never true Do you have trouble paying for medicines?: No Do you have trouble getting transportation to medical appointments?: No Do you have trouble paying your heating and electricity bill?: No Do you have trouble taking care of your child, family member or friend?: No Do you have trouble with day-to-day activities such as bathing, preparing meals, shopping, managing finances, etc.?: No Are you currently unemployed and looking for a job?: No Are you interested in more education?: No Please select the resources that you would like help with: None THRIVE Score: 0 AUDIT C Alcohol Use Questionnaire (AUDIT-C) 1. How often do you have a drink containing alcohol?: Never 3. How often do you have six or more drinks on one occasion?: Never Total Score: 0 PATRICK-7 AMB Questionnaire PATRICK-7 Date PATRICK - 7 assessed: 03/12/25 Feeling nervous, anxious, or on edge: 0 = Not at all Not being able to stop or control worryin = Not at all Worrying too much about different things: 0 = Not at all Trouble relaxin = Not at all Being so restless that it is hard to sit still: 0 = Not at all Becoming easily annoyed or irritable: 0 = Not at all Feeling afraid as if something awful might happen: 0 = Not at all Total PATRICK-7 score (0-4 normal; 5-9 mild; 10-14 moderate; 15-21 severe): 0 Source: Developed by Drs. Wolf Ortez, Otilia Rushing, Jeramie Mccracken and colleagues, with an educational rose from [email or web address]. PATRICK-7 Assessment Billing PATRICK-7 Assessment Tool: PATRICK-7 Assessment 26634 Physical exam (Primary Care) Vital Signs: Last Vital Signs Temp 99.3 F 03/12/25 09:58 Pulse 121 H 03/12/25 09:58 BP 142/90 H 03/12/25 09:58 Pulse Ox 95 03/12/25 09:58 Oxygen Delivery Method Room Air 03/12/25 09:58 BMI result Body Mass Index 33.0 Tobacco/Smoking Status: Tobacco use Status Tobacco use date assessed 03/12/25 03/12/25 09:59 Patient Tobacco Use Status Never used Tobacco 03/12/25 09:59 e-Cigarette/Vaping Use Never Used 03/12/25 09:59 PHQ-9: PHQ-9 Score PHQ-9: Total score 0 03/12/25 10:16 Depression Screening Interpretation: Negative Thrive Assessment: Date of Thrive Assessment Date Thrive assessed 03/12/25 03/12/25 09:59 Results AMB Hemoglobin A1c AMB Hemoglobin A1c 5.9 % Last Edit by Shiloh Dubon CMA on 03/12/25 10:18 Results Reviewed Results Reviewed: Laboratory Last Values Hgb A1c (Clinic) 5.9 % (4.0-6.0) 03/12/25 10:10 Coding Level of Care Code Est Pt Level 3 (34624) Diagnoses RUQ pain R10.11 Nausea & vomiting R11.2 Additional Codes PATRICK-7 Assessment Billing - PATRICK-7 Assessment Tool: PATRICK-7 Assessment 86685 ([id number]) PHQ-9 - 93377 - PHQ-9 Billing: Yes ([id number]) Assessment & Plan Assessment & Plan (1) RUQ pain: Code(s): R10.11 - Right upper quadrant pain Category: Medical (2) Nausea & vomiting: Code(s): R11.2 - Nausea with vomiting, unspecified Category: Medical Plan . Orders: Orders Lipid Panel Today E11.65 - Type 2 diabetes mellitus with hyperglycemia Complete Blood Count Auto Diff Today E11.65 - Type 2 diabetes mellitus with hyperglycemia Comprehensive [place]. Panel Fast Today E11.65 - Type 2 diabetes mellitus with hyperglycemia TSH reflex Free T4 Today E11.65 - Type 2 diabetes mellitus with hyperglycemia UA CC w/rflx Micro + Cult Today E11.65 - Type 2 diabetes mellitus with hyperglycemia AMB Hemoglobin A1c Today Z13.9 - Encounter for screening, unspecified
--- OUTSIDE RECORDS SUMMARY | 2025-03-12 11:11 | XMS_ITS | Clinical Summary ---
Author Organization [facility] ity Address [address] [place] [address] Care Team Providers Care Trim Sawyer Name Role Phone Unavailable Primary Care Provider [...]
== END 2025-03-12 11:21 | disposition home or self-care (01) ==
LOC: HO.HMCC 09:51
PROVIDERS: PCP Nurse Practitioner Family; Visit Provider Nurse Practitioner Family
DX: R10.11 Right upper quadrant pain (principal); R11.2 Nausea with vomiting, unspecified; Z13.9 Encounter for screening, unspecified

== ENCOUNTER → 2025-03-12 09:50 | Outpatient (BNVA) | payer OTHER, SELFPAY | PROVIDERS: PCP Nurse Practitioner Family; Visit Provider Nurse Practitioner Family | DX: Z13.89 Encounter for screening for other disorder (principal) ==

== ENCOUNTER 2025-03-12 11:09 | Emergency (ER) | payer OTHER, SELFPAY ==
--- NOTE | ~2025-03-12 | CT_ITS ---
EXAMINATION: CT ABDOMEN AND PELVIS WITH CONTRAST CLINICAL INFORMATION: Right abdominal pain DLP: 500 mGY*cm COMPARISON: None available. TECHNIQUE: Multidetector volumetric images were obtained from the superior aspect of the liver through the pubic symphysis following administration 85 mL of Omnipaque 350 intravenous contrast. Sagittal and coronal reformatted images were obtained on the technologist's workstation. Oral contrast: No This CT examination was performed using dose optimization techniques as appropriate, variously including the following: *Automated exposure control *Adjustment of mA and/or kV according to patient size (this includes techniques or standardized protocols for targeted exams where dose is matched to indication/reason for exam; i.e. extremities or head) *Use of iterative reconstruction technique FINDINGS: LUNG BASES: The visualized lung bases are unremarkable. LIVER, GALLBLADDER, AND BILIARY TREE: The liver is normal in size, shape, and attenuation. No focal hepatic lesion or biliary ductal dilatation is present. The gallbladder is not visualized and may be surgically absent. PANCREAS: Unremarkable. SPLEEN: Unremarkable. ADRENAL GLANDS: There is a possible small left adrenal gland nodule, too small enteric contrast. Adrenal glands are otherwise unremarkable. KIDNEYS AND URETERS: The kidneys are normal in size, shape, and attenuation. No hydronephrosis, hydroureter, or calculi seen. No perinephric stranding. BLADDER: Unremarkable. A small gas/air bubble is present in the nondependent bladder. GASTROINTESTINAL TRACT: There is a moderate size hiatal hernia involving stomach body and fundus. Fluid-filled loops of small bowel are present. The appendix is unremarkable. ABDOMINAL WALL: No significant hernia is appreciated. LYMPH NODES: Normal. VASCULAR: Mild atherosclerotic ossifications are present in the aorta and iliac arteries. PELVIC VISCERA: Uterus and adnexa are unremarkable. OSSEOUS STRUCTURES: Chronic unilateral pars defect is present on the left at L5. Degenerative disc disease and facet arthropathy is present in the thoracolumbar spine. Osteophytes are present along both acetabular roofs, right greater than left. CT/CT abdomen pelvis w IV con IMPRESSION: Fluid-filled small bowel loops is a nonspecific finding. There is no gross dilation. Correlate for signs symptoms of gastroenteritis. Moderate to large hiatal hernia involving stomach body and fundus. A small gas bubble is present in the nondependent bladder. Correlate for history of catheterization. The gallbladder is nonvisualized, likely surgically absent. Degenerative disc disease, facet arthropathy, and chronic left L5 pars defect. Fleischner guidelines were followed. Electronically signed by: Zac Turner MD 03/12/2025 04:10 PM EDT
[2025-03-12 11:25] VITALS: BP 173/68; PULSE 122; RESP 18; TEMP 37.3; O2SAT 94; BMI 29.8
--- NOTE | 2025-03-12 11:27 | ED_ITS ---
HPI - Abdominal Pain General Chief Complaint: Abdominal Pain Stated Complaint: appendicitis ? Time Seen by Provider: 03/12/25 12:15 Source: patient, RN notes reviewed, old records reviewed and bet taker Mode of arrival: ambulatory Limitations: language barrier History of Present Illness ED Provider: John HPI narrative: 74-year-old female with a past medical history significant for chronic kidney disease, hypothyroidism, vertigo, type 2 diabetes presents for evaluation of vomiting. Patient reports right upper abdominal pain and vomiting for the last 10 days. She went to her primary doctor today and was referred to the ER to evaluate for appendicitis. The patient is status post cholecystectomy 40 years ago. She denies any fevers, chills. Denies any burning with urination, blood in the urine. Denies any other abdominal surgeries within the cholecystectomy Her pain is mild, 2/10 but she does complain of feeling weak and tired Related Data Home Medications ?Medication ?Instructions ?Recorded ?Confirmed fluoxetine 40 mg capsule 40 mg PO DAILY 06/03/2402/16 quetiapine 200 mg tablet 200 mg PO BEDTIME 06/03/24 0 03/12/25 zolpidem 10 mg tablet 10 mg PO BEDTIME 02/11/25 Previous Rx's ?Medication ?Instructions ?Recorded alprazolam 0.5 mg tablet 0.5 mg PO BID PRN anxiety 30 days 02/13/21 #60 tabs blood-glucose meter (FreeStyle #1 ea 02/13/21 Lite Meter kit) pen needle, diabetic 32 gauge x #50 ea 02/16/2109/20 (BD Ultra-Fine Micro Pen Needle) aspirin 81 mg chewable tablet 1 tab PO DAILY #90 tabs 05/23/22 duloxetine 30 mg capsule,delayed 30 mg PO DAILY 90 day s #90 caps 05/23/22 release calcium 600 mg (as 1 cap PO BID 30 days #60 cap s 08/17/22 carbonate)-vitamin D3 12.5 mcg (500 unit) capsule (Calcium with Vit D3) lancets 28 gauge #100 ea 11/21/22 FreeStyle Lite Strips (blood sugar #200 ea 02/09/23 diagnostic) mecobalamin (vitamin B12) 1,000 1,000 mcg PO DAILY #90 tabs 11/26/23 mcg chewable tablet diclofenac sodium 1 % topical gel 4 g topical BID PRN knee pain #100 03/17/24 (Voltaren Arthritis Pain) grams cyanocobalamin (vitamin B-12) 1,000 mcg IM .[id number] 90 days #10 06/17/24 1,000 mcg/mL injection solution mL atorvastatin 20 mg tablet 20 mg PO DAILY #90 tabs 07/18 05/10 ezetimibe 10 mg tablet 10 mg PO DAILY 90 days #90 t abs 08/12/24 metformin 500 mg tablet 500 mg PO BID 90 days #180 t abs 12/05/24 omeprazole 20 mg capsule,delayed 20 mg PO BID #180 cap s 12/05/24 release fenofibrate nanocrystallized 145 145 mg PO DAILY 90 da ys #90 tabs 12/30/24 mg tablet ferrous sulfate 325 mg (65 mg 325 mg PO BID #180 tabs 01/07/25 iron) tablet alendronate 70 mg tablet 70 mg PO QWEEK #12 tabs 0505/11 semaglutide 0.25 mg or 0.5 mg (2 0.5 mg (0.736 mL) sub cut QWEEK 30 01/27/25 mg/3 mL) subcutaneous pen injector days #3 mL (Ozempic) amlodipine 2.5 mg tablet 2.5 mg PO DAILY #90 tabs 07/11 irbesartan 150 mg tablet 150 mg PO DAILY 90 days #90 tabs 02/24/25 levothyroxine 50 mcg tablet 50 mcg PO QAM #90 tabs 07/11 magnesium 200 mg tablet 200 mg PO DAILY #7 tabs 02/16 03/11 ondansetron 4 mg disintegrating 4 mg PO Q8H PRN nausea and 03/12/25 tablet vomiting #20 tabs Allergies Allergy/AdvReac Type Severity Reaction Status Date / Time No Known Allergies (No Known Allergy Verified 03/12/25 11:29 Allergies*) Review of Systems Constitutional: Denies body ache(s), Denies chills and Denies fever(s) Denies vertigo and Denies dizziness Cardiovascular: Denies chest pain and Denies dyspnea on exertion Respiratory: Denies cough and Denies dyspnea on exertion Gastrointestinal: Reports abdominal pain, Reports nausea, Reports vomiting and Denies hematemesis Musculoskeletal: Denies back pain Skin/Breast: Denies rash Denies vertigo and Denies dizziness PMFSH Past Medical History Medical History Vitamin B 12 deficiency Elevated cholesterol GERD (gastroesophageal reflux disease) CKD (chronic kidney disease) HTN (hypertension) Decreased renal function Multinodular thyroid Hypothyroidism Vitamin D deficiency T2DM (type 2 diabetes mellitus) Osteoporosis Surgical History H/O knee surgery Hx of thyroidectomy History of surgery on wrist Hx of cholecystectomy Family History Family History Father Emphysema of lung Mother Myocardial infarction Hypertension Cardiovascular disease Social History Social History Housing: Condominium Patient Tobacco Use Status: Never used Tobacco e-Cigarette/Vaping Use: Never Used Use of substances other than those prescribed or required for medical reasons: No Advance Directives: No Advance Directives Information Provided: No Do you have a plan to hurt others: No Plan Current occupational status: retired Cognitive needs: No Hearing needs: Yes Vision needs: Yes Physical Exam ED Vital Signs: Vital Signs - 24 hr 03/12/25 11:25 03/12/25 13:53 03/12/25 15:28 Temperature 99.2 F 97.6 F 98.4 F Pulse Rate 122 H 92 Respiratory Rate 18 16 Blood Pressure 173/68 H 143/66 H Pulse Oximetry 94 96 Oxygen Delivery Method Room Air Room Air BMI result Body Mass Index 29.8 Const General: healthy appearing, comfortable, no acute distress, alert and awake Nutritional Appearance: well nourished Orientation/consciousness: patient oriented x3 HENMT Head: Yes normocephalic and Yes atraumatic Throat: Yes posterior oropharynx normal Eyes Eyelids: Yes eyelids normal Conjunctivae: conjunctivae normal Sclerae: sclerae normal Corneas: corneas normal Pupils: Equal, round and reactive pupils present EOM: EOMs intact bilaterally Neck Neck: Yes full ROM Resp Effort & Inspection: normal respiratory effort, able to speak in complete sentences and not labored Cardio Rate: regular rate Rhythm: regular rhythm GI Inspection: No distended Palpation (GI): Soft to palpation, not firm, Tenderness to palpation present (GI) in the RUQ; not in the LLQ, not in the RLQ and not in the LUQ, no guarding and not rigid Skin General skin exam: no rashes or lesions noted and elasticity normal Neuro General: patient oriented x3 Cranial nerves: Yes Equal, round and reactive pupils present and Yes Bilaterally intact EOM present Cognition (Neuro): normal cognition Extrem Other: Moving all extremities well without any obvious deformities Course Course Course Narrative: This is an RME: Additional HPI, ROS, PE not included below will be deferred to primary provider. RME assessment and note performed by: Britta Evans PA-C This is a 66-awg[place]citizen [place] speaking female, with a past medical history of type 2 diabetes, CKD, hypertension, who presents to the ER with complaints of RUQ pain since 03/02. Patient has a history of a cholecystectomy. Patient has no right lower quadrant pain. Tenderness palpation in the right upper quadrant. Abdomen is soft. Patient is tachycardic at 122. Pt to be brought back for further eval. Plan: Labs, EKG, further ER eval needed Medical Decision Making Medical Decision Making MDM Narrative: 74-year-old female with a past medical history as above presents for evaluation of right-sided abdominal pain for the last 10 days. Again, she is status post cholecystectomy so this is favored to be less likely but she could have a retained stone. Given that her symptoms have been present for 10 days I also feel that acute appendicitis is less likely but still on the differential. She is having bowel movements so far obstruction is favored to be less likely. Viral syndrome and gastroenteritis around the differential. The patient's magnesium was low at 1.0 and this will be repleted. We will get a CT scan of the abdomen pelvis given the elevated white count with the abdominal pain and vomiting. The patient declines analgesia at this time Differential Diagnosis Differential Diagnoses: The differential diagnosis associated with the presentation includes As above Lab Data [facility] Lab Attestation statement: I reviewed the patient's lab results. Mild leukocytosis to 11.1 with a left shift. The patient has a chronic microcytic anemia consistent with a baseline. Chemistries significant for an elevated BUN of 32 with a normal creatinine of 1.2 way, she does have chronic kidney disease and may have a mild FAZAL on top of this due to her vomiting. Magnesium was low as documented above and likely due to vomiting and GI loss. 03/12/25 11:51 03/12/25 11:51 Labs: Lab Results 03/12/25 03/12/25 Range/Units 11:51 13:53 WBC 11.1 H (4.8-10.8) X10*3/uL RBC 3.81 L (4.20-5.50) X10*6/uL Hgb 10.0 L (12.0-16.0) g/dl Hct 29.2 L (37.0-47.0) % MCV 76.6 L (80.0-98.0) fL MCH 26.2 L (27.0-33.0) pg MCHC 34.2 (31.0-35.0) g/dl RDW 13.6 (11.0-16.0) % Plt Count 327 (160-400) X10*3/uL MPV 10.2 (9.4-12.3) fL Immature Gran % (Auto) 0.4 (0.0-0.4) % Neut % (Auto) 87.5 H (45-73) % Lymph % (Auto) 7.7 L (20-40) % [place] % (Auto) 3.7 (2-11) % Eos % (Auto) 0.4 (0-4) % Baso % (Auto) 0.3 (0-2) % Lymph # (Auto) 0.9 L (1.2-4.9) X10*3/uL [place] # (Auto) 0.4 (0.1-1.2) X10*3/uL Eos # (Auto) 0.0 (0.0-0.4) X10*3/uL Baso # (Auto) 0.0 (0.0-0.2) X10*3/uL Abs Immat Gran (auto) 0.04 H (0.00-0.03) X10*3/uL Absolute Neuts (auto) 9.8 H (2.0-8.3) x10*3/uL Absolute Nucleated RBC 0.000 (0.0-0.012) X10*3/uL Nucleated RBC % (auto) 0.0 (0.0-0.2) /100WBC Sodium 140 (135-145) mmol/L Potassium 4.5 (3.3-5.1) mmol/L Chloride 104 (96-108) mmol/L Carbon Dioxide 24 (22-29) mmol/L Anion Gap 17 (12-20) BUN 32 H (9-16) mg/dL Creatinine 1.28 (0.5-1.4) mg/dL Estim Creat Clear Calc 32.0 Estimated GFR 41 Random Glucose 125 H (60-115) mg/dL Lactic Acid 1.9 (0.5-2.0) mmol/L Calcium 10.1 D (8.4-10.2) mg/dL Magnesium 1.0 L* (1.6-2.6) mg/dL Total Bilirubin 0.5 (0.0-1.0) mg/dL Direct Bilirubin 0.2 (0.0-0.5) mg/dL AST 22 (5-31) U/L ALT 14 (0-31) U/L Alkaline Phosphatase 57 (39-117) U/L Troponin I High Sens < 2.7 (<3.5-17.0) ng/L Total Protein 7.3 (6.5-8.0) g/dL Albumin 4.5 (3.5-5.0) g/dL Lipase 38 (8-78) U/L Urine Color Yellow Urine Appearance Clear Urine pH 5.5 (5.0-9.0) Ur Specific [place] 1.020 (1.005-1.025) Urine Protein Negative (Neg-Trace) mg/dL Urine Glucose (UA) Negative (Negative) mg/dL Urine Ketones Negative (Negative) mg/dL Urine Blood Negative (Negative) Urine Nitrite Negative (Negative) Ur Leukocyte Esterase Small (1+) H (Negative) Urine RBC 0-2 (0-2) /HPF Urine WBC 0-5 (0-5) /HPF Ur Squamous Epith Cells 0-2 (0-2) /HPF Urine Bacteria None Seen (None Seen) Hyaline Casts 0-2 (0-2) /LPF Influenza Type A (PCR) NEGATIVE (Negative) Influenza Type B (PCR) NEGATIVE (Negative) RSV RNA Qual (PCR) NEGATIVE (Negative) SARS-CoV-2 RNA (RT-PCR) NEGATIVE (Negative) Medications Administered Discontinued Medications Generic Name Dose Route Start Last Admin Trade Name Freq PRN Reason Stop Dose Admin Sodium Chloride 1,000 mls @ 999 mls/hr 03/12/25 12:45 03/12/25 13:43 Ns IV 03/12/25 13:45 Infused .Q1H1M ALPHONSO Infusion Magnesium Sulfate 2 gm in 50 mls @ 150 mls/hr 03/12/25 12:32 03/12/25 13:05 Magnesium Sulfate/H2o IV 03/12/25 12:51 Infused ONCE ONE Infusion Iohexol 100 ml 03/12/25 15:20 03/12/25 15:20 Iohexol 350 Mg/Ml 100 Ml Infus..Btl IV 03/12/25 15:21 85 ml ONCE ONE Administration Ondansetron HCl 4 mg 03/12/25 12:32 03/12/25 12:41 Ondansetron Hcl 4 Mg/2 Ml Vial IVPUSH 03/12/25 12:33 4 mg ONCE ONE Administration Discharge Plan Discharge Clinical Impression: Gastroenteritis, Hypomagnesemia Patient Disposition: Home, Self-Care Instructions: Gastroenteritis (ED), Hypomagnesemia (ED) Additional Instructions: Your CT scan showed small bowel inflammation that is consistent with gastroenteritis. Notably, your appendix did not appear inflamed I recommend continuing to hydrate well. Use Zofran as needed for nausea and vomiting I recommend taking magnesium supplementation daily for the next week as your magnesium was quite low today. I recommend following up with your primary doctor in the next 1-2 weeks to have a repeat magnesium level Prescriptions: New ondansetron 4 mg tablet,disintegrating 4 mg PO Q8H PRN (Reason: nausea and vomiting) Qty: 20 0RF magnesium 200 mg tablet 200 mg PO DAILY Qty: 7 0RF No Action (DME) blood-glucose meter [FreeStyle Lite Meter] Kit See Rx Instructions .ROUTE .MEDSUPPLY Qty: 1 0RF Rx Instructions: Free style Lite device check sugar 2 times a day alprazolam 0.5 mg tablet 0.5 mg PO BID PRN (Reason: anxiety) 30 Days Qty: 60 0RF Rx Instructions: not to be taken with zolpidem (DME) pen needle, diabetic [BD Ultra-Fine Micro Pen Needle] 32 gauge x 1/4 needle See Rx Instructions .ROUTE .MEDSUPPLY Qty: 50 11RF Rx Instructions: Once a week with Ozempic aspirin 81 mg tablet,chewable 1 tab PO DAILY Qty: 90 2RF duloxetine 30 mg capsule,delayed release(DR/EC) 30 mg PO DAILY 90 Days Qty: 90 0RF (DME) lancets 28 gauge misc See Rx Instructions topical BID Qty: 100 0RF Rx Instructions: Use to check blood sugar twice daily, fasting and a random blood sugar during the day. (DME) FreeStyle Lite Strips Strip See Rx Instructions Not Applicable BID Qty: 200 1RF Rx Instructions: Use to check blood sugar twice daily, fasting and a random blood sugar during the day. cyanocobalamin (vitamin B-12) 1,000 mcg/mL solution 1,000 mcg IM .[id number] 90 Days Qty: 10 3RF Rx Instructions: Q monthly x 3 months atorvastatin 20 mg tablet 20 mg PO DAILY Qty: 90 1RF ezetimibe 10 mg tablet 10 mg PO DAILY 90 Days Qty: 90 1RF metformin 500 mg tablet 500 mg PO BID 90 Days Qty: 180 1RF omeprazole 20 mg capsule,delayed release(DR/EC) 20 mg PO BID Qty: 180 1RF fenofibrate nanocrystallized 145 mg tablet 145 mg PO DAILY 90 Days Qty: 90 1RF ferrous sulfate 325 mg (65 mg iron) tablet 325 mg PO BID Qty: 180 1RF alendronate 70 mg tablet 70 mg PO QWEEK Qty: 12 1RF Ozempic 0.25 mg or 0.5 mg (2 mg/3 mL) pen injector 0.5 mg subcut QWEEK 30 Days Qty: 3 1RF Rx Instructions: for 4 weeks amlodipine 2.5 mg tablet 2.5 mg PO DAILY Qty: 90 1RF levothyroxine 50 mcg tablet 50 mcg PO QAM Qty: 90 1RF irbesartan 150 mg tablet 150 mg PO DAILY 90 Days Qty: 90 1RF calcium carbonate-vitamin D3 [Calcium 600 with Vitamin D3] 600 mg-12.5 mcg (500 unit) capsule 1 cap PO BID 30 Days Qty: 60 2RF mecobalamin (vitamin B12) 1,000 mcg tablet,chewable 1,000 mcg PO DAILY Qty: 90 0RF diclofenac sodium [Voltaren Arthritis Pain] 1 % gel 4 g topical BID PRN (Reason: knee pain) Qty: 100 0RF Rx Instructions: apply to single knee, ankle, foot; for foot includes sole/toes/top of foot fluoxetine 40 mg capsule 40 mg PO DAILY quetiapine 200 mg tablet 200 mg PO BEDTIME zolpidem 10 mg tablet 10 mg PO BEDTIME Print Language: Tamazight
--- NOTE | 2025-03-12 11:31 | ECG_ITS ---
Test Reason : tachy Blood Pressure : */* mmHG Vent. Rate : 106 BPM Atrial Rate : 106 BPM P-R Int : 144 ms QRS Dur : 66 ms QT Int : 330 ms P-R-T Axes : 58 42 75 degrees QTcB Int : 438 ms Sinus tachycardia Low voltage QRS Otherwise normal ECG No previous ECGs available Referred By: Britta Evans Electronically Signed By: PARKER JOEL
[2025-03-12 12:05] LABS: MANUAL DIFF FLAG NO
[2025-03-12 12:06] LABS: Basophils Percent Auto 0.3 % (0-2); Eosinophils Percent Auto 0.4 % (0-4); Hematocrit 29.2 % (37.0-47.0); Imm Gran Abs Auto 0.04 X10*3/uL (0.00-0.03); Imm Gran Pct Auto 0.4 % (0.0-0.4); Lymphocytes Absolute Auto 0.9 X10*3/uL (1.2-4.9); Lymphocytes Percent Auto 7.7 % (20-40); Mean Corpuscular HGB Conc 34.2 g/dl (31.0-35.0); Mean Corpuscular Hemoglobin 26.2 pg (27.0-33.0); Mean Corpuscular Volume 76.6 fL (80.0-98.0); Mean Platelet Volume 10.2 fL (9.4-12.3); Monocytes Absolute Auto 0.4 X10*3/uL (0.1-1.2); Monocytes Percent Auto 3.7 % (2-11); Neutrophils Absolute Auto 9.8 x10*3/uL (2.0-8.3); Neutrophils Percent Auto 87.5 % (45-73); Platelet Count 327 X10*3/uL (160-400); Red Blood Count 3.81 X10*6/uL (4.20-5.50); Red Cell Distribution Width 13.6 % (11.0-16.0); White Blood Count 11.1 X10*3/uL (4.8-10.8)
[2025-03-12 12:25] LABS: Alanine Aminotransferase 14 U/L (0-31); Albumin Level 4.5 g/dL (3.5-5.0); Alkaline Phosphatase 57 U/L (39-117); Anion Gap 17 (12-20); Aspartate Amino Transferase 22 U/L (5-31); Bilirubin Direct 0.2 mg/dL (0.0-0.5); Bilirubin Total 0.5 mg/dL (0.0-1.0); Blood Urea Nitrogen 32 mg/dL (9-16); Calcium 10.1 mg/dL (8.4-10.2); Carbon Dioxide 24 mmol/L (22-29); Chloride 104 mmol/L (96-108); Estimated Glomerular Filt Rate 41; Glucose Random 125 mg/dL (60-115); Lactic Acid 1.9 mmol/L (0.5-2.0); Lipase 38 U/L (8-78); Potassium 4.5 mmol/L (3.3-5.1); Sodium 140 mmol/L (135-145); Total Protein 7.3 g/dL (6.5-8.0)
[2025-03-12 12:32] LABS: Troponin-I High Sensitivity < 2.7 ng/L (<3.5-17.0)
[2025-03-12] MEDS: ondansetron HCL 4 MG/2 ML VIAL IVPUSH (12:41)
[2025-03-12 12:43] LABS: Influenza A PCR NEGATIVE (Negative); Influenza B PCR NEGATIVE (Negative); Resp Syncy Virus RNA Qual PCR NEGATIVE (Negative); SARS COV2 PCR INHOUSE NEGATIVE (Negative)
[2025-03-12] MEDS: 0.9 % Sodium Chloride 1,000 ML 999 ML IV (12:43)
[2025-03-12] MEDS: Magnesium Sulfate/H2O 2 GM/50 ML PIGGYBACK IV (12:45)
[2025-03-12 13:53] VITALS: BP 143/66; PULSE 92; RESP 16; TEMP 36.4; O2SAT 96
[2025-03-12 14:04] LABS: Appearance Urine Clear; Color Urine Yellow; Glucose Urine UA Negative (Negative); Leukocyte Esterase Urine Small (1+) (Negative); Nitrite Urine Negative (Negative); PH 5.5 (5.0-9.0); UMIC TRIGGER UACC YES; Urine Blood Negative (Negative); Urine Ketones Negative (Negative); Urine Protein Negative (Neg-Trace)
[2025-03-12 14:15] LABS: Bacteria Urine None Seen (None Seen); Hyaline Casts Urine 0-2 /LPF (0-2); RBC Urine 0-2 /HPF (0-2); Squamous Epithelial Cell Urine 0-2 /HPF (0-2); UACC Culture Trigger YES; WBC Urine 0-5 /HPF (0-5)
[2025-03-12] MEDS: iohexoL 350 MG/ML 100 ML INFUS..BTL IV (15:20)
[2025-03-12 15:28] VITALS: TEMP 36.9
[2025-03-12 16:28] VITALS: BP 117/49; PULSE 87; RESP 16; TEMP 37.1; O2SAT 95
[2025-03-12] MEDS: Magnesium Oxide 400 MG TABLET 800 MG PO (16:34)
[2025-03-12 16:39] VITALS: BP 117/49; PULSE 87; RESP 16; TEMP 37.1; O2SAT 95
== END 2025-03-12 16:39 | disposition home or self-care (01) ==
PROVIDERS: Physician Assistant Medical; Emergency Provider Emergency Medicine; PCP Nurse Practitioner Family
DX: K52.9 Noninfective gastroenteritis and colitis, unspecified (principal); E83.42 Hypomagnesemia; R10.11 Right upper quadrant pain; E11.9 Type 2 diabetes mellitus without complications; R11.10 Vomiting, unspecified; R53.1 Weakness; Z79.84 Long term (current) use of oral hypoglycemic drugs; Z79.85 Long-term (current) use of injectable non-insulin antidiabetic drugs; Z03.818 Encounter for observation for suspected exposure to other biological agents ruled out; Z79.899 Other long term (current) drug therapy
CPT/HCPCS: 0241U; 36415; 74177; 80048; 80076; 81001; 81003; 83036; 83605; 83690; 83735; 84484; 85025; 87040; 87086; 93005; 96127; 96361; 96374; 96375; 99212; 99284; 99285; J2405; J3475; Q9967

== ENCOUNTER → 2025-03-12 11:31 | Outpatient (BNV) | payer OTHER, SELFPAY | PROVIDERS: Emergency Provider Emergency Medicine; PCP Nurse Practitioner Family; Visit Provider Internal Medicine | DX: R00.0 Tachycardia, unspecified (principal) | CPT/HCPCS: 93010 ==

== ENCOUNTER → 2025-03-12 12:32 | Outpatient (BNV) | payer OTHER, SELFPAY | PROVIDERS: Emergency Provider Emergency Medicine; PCP Nurse Practitioner Family; Visit Provider Radiology Diagnostic Radiology | DX: K44.9 Diaphragmatic hernia without obstruction or gangrene (principal) | CPT/HCPCS: 74177 ==

== ENCOUNTER 2025-05-14 09:35 | Outpatient (REF) | payer OTHER, SELFPAY ==
--- NOTE | ~2025-05-14 | US_ITS ---
EXAMINATION: US THYROID CLINICAL INFORMATION: Nontoxic multinodular goiter. Status post left hemithyroidectomy. COMPARISON: December 02, 2024. TECHNIQUE: Linear transducer grayscale and color Doppler examination with attention to the region of the thyroid. FINDINGS: SIZE: Measurements of the thyroid lobes and nodules are given in sagittal, anteroposterior and transverse dimensions respectively. Right Thyroid Lobe: 6.1 x 3.4 x 2.5 cm, volume 27.4 mL. Previous: 7.8 x 3.5 x 2.5 cm, volume: 33 cc. Parenchyma: The gland echotexture is heterogeneous. Thyroid vascularity is normal.. Estimated total number of nodules greater than or equal to 1 cm: 1. Clinical Pathologist nodules are described as follows: 1. Location: Upper/mid right thyroid lobe. Size: 3.2 x 2.5 x 2.7 cm, volume 10.9 mL. Previous: 5.4 x 3.7 x 2.5 cm, volume: 25.7 Nodule characteristics: Composition: Solid (2). Echogenicity: Hypoechoic (2). Shape: Not taller than wide (0). Margins: Smooth (0). Echogenic Foci: Punctate echogenic foci (3). Macrocalcifications (1). ACR TI-RADS total points: 8 ACR TI-RADS category: 5 NODES: No lymphadenopathy is seen in the tissue surrounding the thyroid gland. US/US thyroid IMPRESSION: ACR TI RADS 5. ACR TI-RADS RECOMMENDATION REFERENCE: Ultrasound-guided fine-needle aspiration, followup ultrasound, no further follow up. * TR1 (0 point) and TR2 (2 points): No FNA or follow up. * TR3 (3 points): FNA if more than or equal to 2.5 cm in maximum dimension, followup ultrasound in 1, 3 and 5 years if 1.5 to 2.4 cm in maximum dimension. * TR4 (4-6 points): FNA if more than or equal to 1.5 cm in maximum dimension, followup ultrasound in 1, 2, 3 and 5 years if 1 to 1.4 cm in maximum dimension. * TR5 (more than or equal to 7 points): FNA if more than or equal to 1 cm in maximum dimension, followup ultrasound every year for 5 years if 0.5 to 0.9 cm in maximum dimension. * TR3, TR4 or TR5 nodules that are below the size threshold for followup receive no follow up. Electronically signed by: Ayad Triana MD 05/14/2025 10:05 AM EDT
--- OUTSIDE RECORDS SUMMARY | 2025-05-14 10:39 | XMS_ITS | Clinical Summary ---
Author Organization [facility] ity Address [id number] [place] [id number] Care Team Providers Care Sql Dba Name Role Phone Unavailable Primary Care Provider [...] Vaccine ( - 2023-2 5 season) 2024 Depression Screening 09/17/2024 RSV Immunization Adult Patie nts (1 - 1-dose 75+ series) 2024 Influenza Vaccine (#1) 2025 HIB Vaccines Aged Out No longer [...]
--- OUTSIDE RECORDS SUMMARY | 2025-05-14 10:39 | XMS_ITS | Encounter Summary ---
Author Organization [employer] Address [address] [facility] [address] [place] [address] Care Team Providers Care Director Of Engineering Name Role Phone Unavailable Primary Care Provider Unavailabl e Encounter Details Date Type Department Care Team (Latest Contact Info) Description 09/29/2019 Abstract [facility] CONVERSIONS Dental, Provider, DDS Social History Tobacco [...]
--- OUTSIDE RECORDS SUMMARY | 2025-05-14 10:39 | XMS_ITS | Clinical Summary ---
Author Organization [employer] Address [address] [facility] [address] [place] [address] Care Team Providers Care Cardiovascular Surgical Tech Name Role Phone Unavailable Primary Care Provider Unavailabl e Immunizations Immunization Administration Dates Next Due Influenza High-dose Quadriva [...] 2024 07/17/2023, 07/21/2022, 01/04/2022, Additional history exists RSV Patients and Patients Aged 60 years or older (1 - 1-dose 75+ series) 2024 Influenza Vaccine (#1) 2025 3, 07/07/2022, 10/03/2021, Additional history exists HIB Vaccines Aged Out No longer eligi [...] patient's age to complete this topic Insurance [facility] INTERMEDIATE OPTIONS (O D-SNP) MICHAEL ALONSO [id number]
== END 2025-05-14 09:36 | disposition home or self-care (01) ==
LOC: HO.HMGCX 09:35
PROVIDERS: PCP Nurse Practitioner Family; Visit Provider Nurse Practitioner Family
DX: E04.2 Nontoxic multinodular goiter (principal)
CPT/HCPCS: 76536

== ENCOUNTER → 2025-05-14 09:39 | Outpatient (BNV) | payer OTHER, SELFPAY | PROVIDERS: PCP Nurse Practitioner Family; Visit Provider Radiology Diagnostic Radiology | DX: E04.2 Nontoxic multinodular goiter (principal); Z90.89 Acquired absence of other organs | CPT/HCPCS: 76536 ==

== ENCOUNTER 2025-05-20 10:35 | Outpatient (AMB) | payer OTHER, SELFPAY ==
--- NOTE | 2025-05-20 11:01 | A.OFFVIS_ITS ---
VS Expanded 05/20/25 11:32 BP 111/70 Blood Pressure Location Rt brachial Blood Pressure Position Sitting Pulse 90 Pulse Source Pulse Oximeter Temp 96.6 F L Temperature Source Temporal Artery Scan Pulse Oximetry 95 Oxygen Delivery Method Room Air Height 4 ft 9 in Weight 148 lb 12.8 oz BMI 32.2 Body Fat % 42.0 Body Fat Mass 62.4 Fat Free Mass 86.2 Visceral Fat Rating 13.0 Body Water % 40.5 Body Water Mass 60.2 Muscle Mass/Score 81.8 Basal Metabolic Rate/Score 1,203 Intake Visit Reasons: OV Hiatal Hernia - Dr. Luz Ref *NEWCOMER HOSTESS* Operator Bearer Systems Required: Yes Operator Bearer Systems Services: Operator Bearer Systems Present Information Interpreted: clinical only Allergies No Known Allergies (No Known Allergies*) Allergy (Verified 05/20/25 11:10) Medication List - Last Reconciled 05/20/25 by Chandra Serrano MD alendronate 70 mg PO QWEEK alprazolam 0.5 mg PO BID PRN 30 days amlodipine 2.5 mg PO DAILY aspirin 1 tab PO DAILY atorvastatin 20 mg PO DAILY blood-glucose meter (FreeStyle Lite Meter kit) Free style Lite device check sugar 2 times a day calcium carbonate-vitamin D3 600 mg-12.5 mcg (500 unit) (Calcium with Vit D3) 1 cap PO BID 30 days cyanocobalamin (vitamin B-12) 1,000 mcg IM Q4W 90 days diclofenac sodium 1% (Voltaren Arthritis Pain) 4 grams topical BID PRN duloxetine 30 mg PO DAILY 90 days ezetimibe 10 mg PO DAILY 90 days fenofibrate nanocrystallized 145 mg PO DAILY 90 days ferrous sulfate 325 mg PO BID fluoxetine 40 mg PO DAILY FreeStyle Lite Strips (blood sugar diagnostic) Use to check blood sugar twice daily, fasting and a random blood sugar during the day. NS irbesartan 150 mg PO DAILY 90 days lancets Use to check blood sugar twice daily, fasting and a random blood sugar during the day. levothyroxine 50 mcg PO QAM magnesium 200 mg PO DAILY mecobalamin (vitamin B12) 1,000 mcg PO DAILY metformin 500 mg PO BID 90 days omeprazole 20 mg PO BID ondansetron 4 mg PO Q8H PRN pen needle, diabetic (BD Ultra-Fine Micro Pen Needle) Once a week with Ozempic quetiapine 200 mg PO BEDTIME semaglutide 1 mg (0.75 mL) subcut QWEEK 30 days zolpidem 10 mg PO BEDTIME HPI Comments Details: She was referred by Dr. Luz discovered by a recent CT abdomen/pelvis. C/o persistent anemia, GERD and progressively worse SOB CT abd/pelvis: I reviewed personally. 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 Usually appears on the left of the esophagus PFSH Medical History Vitamin B 12 deficiency Elevated cholesterol GERD (gastroesophageal reflux disease) CKD (chronic kidney disease) HTN (hypertension) Decreased renal function Multinodular thyroid Hypothyroidism Vitamin D deficiency T2DM (type 2 diabetes mellitus) Osteoporosis Surgical History H/O knee surgery Hx of thyroidectomy History of surgery on wrist Hx of cholecystectomy Family History Father Emphysema of lung Mother Myocardial infarction Hypertension Cardiovascular disease [facility] Patient Tobacco Use Status: Never used Tobacco e-Cigarette/Vaping Use: Never Used Current occupational status: retired Cognitive needs: No Hearing needs: Yes Vision needs: Yes Assessment & Plan Assessment & Plan (1) Paraesophageal hernia: Code(s): K44.9 - Diaphragmatic hernia without obstruction or gangrene Category: Medical Plan: 1. We discussed the potential etiology of the hernia that is worsened by her weight. We discussed the details of the diaphragmatic hernia repair and the potential technical challenges such as being able to achieve enough mobilization of the esophagus back in the abdomen and being able to close the diaphragmatic muscle (crura) primarily with sutures. We also discussed the possibility of using a biologic mesh to close the hernia defect if the crura cannot be adequately re-approximated primarily with sutures. We also discussed the option of doing a gastropexy or a fundoplication to prevent postoperative reflux and prevent hernia recurrence. As we discussed, I favor the gastropexy as the fundoplication can cause several distrurbing symptoms such as gas-bloating, flatulence, inability to burp which can be bothersome to patients especially for him with a history of IBS. Also we discussed the complexity of a potential hernia recurrence in association with a hernia recurrence. He was in agreement not to have a fundoplication. We also discussed that after surgery, he will need to be on a liquid diet with protein shakes the first week. The second week will add protein bars and soft foods and after the third week we will introduce small amounts of regular food. The transition to normal eating habits will take about 6 weeks which is the time required for the repair to heal completely. As I explained to her there is a senior living risk of acute strangulation which can be life-threatening. In addition, the hernia affects her quality of life contributing to the anemia, GERD symptoms and SOB. Her decision to proceed with surgical repair or not, should be based on her interest in improving her quality of life and secondarily the potential life threatening risk of acute strangulation (although this is not the most likely circumstance). She should also consider the possibility that she could live the rest of her life without any issue at all. All questions the patient and her had were addressed. They wish to take some time to consider their options and get back to me.
[2025-05-20 11:32] VITALS: BP 111/70; PULSE 90; TEMP 35.9; O2SAT 95; BMI 32.2
--- OUTSIDE RECORDS SUMMARY | 2025-05-20 12:21 | XMS_ITS | Encounter Summary ---
Author Organization [employer] Address [address] [facility] [address] [place] [address] Care Team Providers Care Pin Worker Name Role Phone Unavailable Primary Care Provider Unavailabl e Encounter Details Date Type Department Care Team (Latest Contact Info) Description 09/29/2019 Abstract [facility] CONVERSIONS Dental, Provider, DDS Social History Tobacco [...]
--- OUTSIDE RECORDS SUMMARY | 2025-05-20 12:21 | XMS_ITS | Clinical Summary ---
Author Organization [facility] ity Address [address] [place] [address] Care Team Providers Care Switch Cleaner Name Role Phone Unavailable Primary Care Provider [...] 1999 Zoster Vaccines (1 of 2) 1999 Depression Screening 09/17/2024 RSV Immunization Adult Patie nts (1 - 1-dose 75+ series) 2024 COVID-19 Vaccine ( - 2023-2 5 season) 2025 Influenza Vaccine (#1) 2025 HIB Vaccines Aged [...]
--- OUTSIDE RECORDS SUMMARY | 2025-05-20 12:21 | XMS_ITS | Clinical Summary ---
Author Organization [employer] Address [address] [facility] [address] [place] [address] Care Team Providers Care Special Diet Cook Name Role Phone Unavailable Primary Care Provider [...] patient's age to complete this topic Insurance [facility] OPTIONS (O D-SNP) [place] [id number]
== END 2025-05-20 11:50 | disposition home or self-care (01) ==
LOC: HO.HBS 10:35
PROVIDERS: PCP Nurse Practitioner Family; Visit Provider Surgery
DX: K44.9 Diaphragmatic hernia without obstruction or gangrene (principal); E66.9 Obesity, unspecified; Z68.32 Body mass index [BMI] 32.0-32.9, adult
CPT/HCPCS: 99204

== ENCOUNTER → 2025-05-20 10:35 | Outpatient (BNVA) | payer OTHER, SELFPAY | PROVIDERS: PCP Nurse Practitioner Family; Visit Provider Surgery | DX: K44.9 Diaphragmatic hernia without obstruction or gangrene (principal); D64.9 Anemia, unspecified; K21.9 Gastro-esophageal reflux disease without esophagitis; R06.02 Shortness of breath | CPT/HCPCS: 99202 ==

== ENCOUNTER → 2025-06-17 23:59 | Outpatient (BNV) | payer OTHER, SELFPAY | PROVIDERS: PCP Nurse Practitioner Family; Visit Provider Nurse Practitioner Family | DX: E53.8 Deficiency of other specified B group vitamins (principal); E11.65 Type 2 diabetes mellitus with hyperglycemia; E61.1 Iron deficiency | CPT/HCPCS: G0179 ==

== ENCOUNTER → 2025-06-18 23:59 | Outpatient (BNV) | payer OTHER, SELFPAY | PROVIDERS: PCP Nurse Practitioner Family; Visit Provider Nurse Practitioner Family | DX: E53.8 Deficiency of other specified B group vitamins (principal); E11.65 Type 2 diabetes mellitus with hyperglycemia; E61.1 Iron deficiency | CPT/HCPCS: G0179 ==

== ENCOUNTER 2025-06-22 11:26 | Day surgery (SDC) | payer OTHER, SELFPAY ==
--- OUTSIDE RECORDS SUMMARY | 2025-06-16 15:56 | XMS_ITS | Encounter Summary ---
Author Organization [employer] Address [address] [facility] [address] [place] [address] Care Team Providers Care Videotape Recording Engineer Name Role Phone Unavailable Primary Care Provider Unavailabl e Encounter Details Date Type Department Care Team (Latest Contact Info) Description 09/29/2019 Abstract [facility] CONVERSIONS Dental, Provider, DDS Social History [...]
--- OUTSIDE RECORDS SUMMARY | 2025-06-16 15:56 | XMS_ITS | Clinical Summary ---
Author Organization [facility] ity Address [address] [place] [address] Care Team Providers Care Conservation Worker Name Role Phone Unavailable Primary Care [...]
--- OUTSIDE RECORDS SUMMARY | 2025-06-16 15:56 | XMS_ITS | Clinical Summary ---
Author Organization [employer] Address [address] [facility] [address] [place] [address] Care Team Providers Care Medicaid Eligibility Specialist Name Role Phone Unavailable Primary Care [...] (2 of 2 - PCV) 09/09/2021 09/09/2020 RSV Patients and Patients Aged 60 years or older (1 - 1-dose 75+ series) 2024 COVID-19 Vaccine (2024- season) 2025 07/17/2023, 07/21/2022, 01/04/2022, Additional history exists Influenza Vaccine (#1) 2025 3, 07/07/2022, 10/03/2021, [...] age to complete this topic Insurance [facility] OPTIONS (O D-SNP) [place] [id number]
--- NOTE | 2025-06-18 14:35 | HO.ANESPROP2 ---
Documented by User: Jacqueline Zeng NP 06/18/25 14:37 HPI - Anesthesia Eval Consult details Narrative: 74yo F for Upper Endoscopy Anesthesia Pre-Procedure Meds Is the patient on any of the following meds?: GLP1/DPP4 PMFSH Active Problems Active Problems: All Active Problems Abnormal echocardiogram (Acute) Paraesophageal hernia (Acute) Hiatal hernia (Acute) Nausea & vomiting (Acute) RUQ pain (Acute) Dry skin (Acute) BPPV (benign paroxysmal positional vertigo) (Acute) Physical exam (Acute) Tear of medial meniscus of right knee (Acute) CKD stage 3a, GFR 45-59 ml/min (Acute) FAZAL (acute kidney injury) (Acute) Right knee pain (Acute) Acute pain of right knee (Acute) [place] (hard of hearing) (Acute) Murmur (Acute) Iron deficiency (Acute) B12 deficiency (Acute) Low TSH level (Acute) Anemia (Acute) HTN (hypertension) (Acute) Skin lesions (Acute) Screening for breast cancer (Acute) Tachycardia (Acute) Encounter for laboratory testing for COVID-19 virus (Acute) Decreased renal function (Acute) Multinodular thyroid (Acute) Hypothyroidism (Acute) Vitamin D deficiency (Acute) T2DM (type 2 diabetes mellitus) (Acute) Osteoporosis (Acute) Past Medical History Medical History (Updated 06/12/25 @ 19:53 by Chandra Serrano MD) Abnormal echocardiogram Vitamin B 12 deficiency Elevated cholesterol GERD (gastroesophageal reflux disease) CKD (chronic kidney disease) HTN (hypertension) Decreased renal function Multinodular thyroid Hypothyroidism Vitamin D deficiency T2DM (type 2 diabetes mellitus) Osteoporosis Family History Family History Father Emphysema of lung Mother Myocardial infarction Hypertension Cardiovascular disease Family history of problems with anesthesia: No Surgical History Surgical History H/O knee surgery Hx of thyroidectomy History of surgery on wrist Hx of cholecystectomy History of Problems with Anesthesia: No Social History Social History Housing: [facility] Patient Tobacco Use Status: Never used Tobacco e-Cigarette/Vaping Use: Never Used Have you been hit, kicked, punched, or otherwise hurt by someone within the past year? If so, by whom?: No Are you DNR?: No Advance Directives: No Advance Directives Information Provided: Yes Current occupational status: retired Cognitive needs: No Hearing needs: Yes Vision needs: Yes Meds Allergies Allergy/AdvReac Type Severity Reaction Status Date / Time No Known Allergies (No Known Allergy Verified 05/20/25 11:10 Allergies*) Home Medications ?Medication ?Instructions ?Recorded ?Confirmed ?Last Taken ?Type fluoxetine 40 mg capsule 40 mg PO DAILY 06/03/24 06/22/25 Unknown History quetiapine 200 mg tablet 200 mg PO BEDTIME 06/03/24 06/22/25 Unknown History zolpidem 10 mg tablet 10 mg PO BEDTIME 02/11/25 06/22/25 Unknown History Exam Pertinent Lab Results Pertinent Lab Results: Laboratory Tests 03/12/25 11:51 WBC 11.1 H Hgb 10.0 L Hct 29.2 L Plt Count 327 Sodium 140 Potassium 4.5 Chloride 104 Carbon Dioxide 24 BUN 32 H Creatinine 1.28 Narrative Narrative: EKG 02/2025 Vent. Rate : 106 BPM Atrial Rate : 106 BPM P-R Int : 144 ms QRS Dur : 66 ms QT Int : 330 ms P-R-T Axes : 58 42 75 degrees QTcB Int : 438 ms Sinus tachycardia Low voltage QRS Otherwise normal ECG No previous ECGs available ECHO 2022 Conclusions: - The left ventricular systolic function is normal. The calculated ejection fraction is 66% by biplane method. - There is mild calcification of the aortic valve. - There is mild mitral annular calcification. - There is mild mitral valve regurgitation. Assessment and Plan Assessment Anesthesia Assessment: Chart Reviewed Final Anesthetic Review Family History of Problems with Anesthesia: No History of Problems with Anesthesia: No Documented by User: Brenda Marmolejo MD 06/22/25 12:26 [facility] Past Medical History Medical History (Updated 06/12/25 @ 19:53 by Chandra Serrano MD) Abnormal echocardiogram Vitamin B 12 deficiency Elevated cholesterol GERD (gastroesophageal reflux disease) CKD (chronic kidney disease) HTN (hypertension) Decreased renal function Multinodular thyroid Hypothyroidism Vitamin D deficiency T2DM (type 2 diabetes mellitus) Osteoporosis Family History Family History Father Emphysema of lung Mother Myocardial infarction Hypertension Cardiovascular disease Surgical History Surgical History H/O knee surgery Hx of thyroidectomy History of surgery on wrist Hx of cholecystectomy Social History Social History [facility] Patient Tobacco Use Status: Never used Tobacco e-Cigarette/Vaping Use: Never Used Have you been hit, kicked, punched, or otherwise hurt by someone within the past year? If so, by whom?: No Are you DNR?: No Advance Directives: No Advance Directives Information Provided: Yes Current occupational status: retired Cognitive needs: No Hearing needs: Yes Vision needs: Yes Meds Allergies Allergy/AdvReac Type Severity Reaction Status Date / Time No Known Allergies (No Known Allergy Verified 05/20/25 11:10 Allergies*) Home Medications ?Medication ?Instructions ?Recorded ?Confirmed ?Last Taken ?Type fluoxetine 40 mg capsule 40 mg PO DAILY 06/03/24 06/22/25 Unknown History quetiapine 200 mg tablet 200 mg PO BEDTIME 06/03/24 06/22/25 Unknown History zolpidem 10 mg tablet 10 mg PO BEDTIME 02/11/25 06/22/25 Unknown History Exam Airway Mallampati Class: II (pt unaware if she has caps/crowns on top) TM Dist: >3cm Neck ROM: Full Heart: rrr Lungs: cta Assessment and Plan Assessment Anesthesia Assessment: Anesthesia Plan Discussed Final Anesthetic Review NPO: Yes ASA Class: III Final Preanesthetic Review: No Changes in Pt Med Stat, Meds/Allgs Chart Reviewed and Consent Obtained/Reviewed Patient Risk: Intermediate Procedure Risk: Intermediate Anesthetic Plan Anesthetic Plan: MAC: Disposition: Standard PACU
[2025-06-20 15:19] VITALS: BMI 31.6
[2025-06-22 12:03] VITALS: BP 142/82; PULSE 102; RESP 18; TEMP 36.3; O2SAT 96; BMI 32.0
[2025-06-22 12:17] LABS: Glucose, Whole Blood 106 mg/dL (60-115)
[2025-06-22] MEDS: Lactated Ringers 1,000 ML 80 ML IVCONT (12:29)
--- NOTE | 2025-06-22 13:36 | MHC.SHP ---
Pre-Procedural Eval Section A - 24 Hr Update-Section A only Date of Service: 06/22/25 The patient is an INPATIENT: No The patient has been examined within 24 hours of the surgical procedure. The History & Physical has been completed within 30 days and I have reviewed it.: Yes Section B - Complete if H&P > 30 days Chief Complaint: Diaphragmatic hernia without obstruction or gangre Details of Present Illness: GERD Relevant Family History (Specify if Yes): No Relevant Social History: None Present Medications: None Medical History: No relevant PMH History of Previous Operations: No relevant previous surgery Allergies: Allergies Allergy/AdvReac Type Severity Reaction Status Date / Time No Known Allergies (No Known Allergy Verified 05/20/25 11:10 Allergies*) Review of Systems Sugical H&P ROS: Negative: Constitution, Cardiovascular, Respiratory, Neurological, Psychiatric, Hem-Onc, Allergic/Immunologic, Gastrointestinal, Genitourinary, Musculoskeletal, Integumentary, Endocrine and Eyes/Ears/Nose/Throat Exam Surgical H&P Exam: Normal: HEENT, Normal: Heart, Normal: Lungs, Normal: Extremities, Normal: Abdomen, Normal: Skin and Normal: Neurological Plan Diagnosis/Plan: Unchanged (EGD to assess etiology of GERD and the hiatal hernia. Risks of bleeding and perforation were discussed with the patient and she is in agreement with the plan.) I have reviewed the history and physical and performed a pertinent physical examination on my patient. No changes have occurred unless specified. Time Spent With Patient Time: Total time managing care of this patient today ____ minutes.
--- NOTE | 2025-06-22 13:39 | PM.OP ---
Brief Operative Note Date of Service: 06/22/25 Pre-op diagnosis: Large diaphragmatic hernia Post-op diagnosis: same Procedure: PROCEDURE DATE: 06/22/2025 PREOPERATIVE DIAGNOSIS: GERD and large diaphragmatic hernia type III POSTOPERATIVE DIAGNOSIS: ?Same as above. Esophagitis PROCEDURE: [id number] with biopsies Surgeon: ?José Serrano M.D.. Ph.D. [employer] Manager: None ? Anesthesia: IV sedation Estimated blood loss: ?Minimal FINDINGS AND PROCEDURE: ? OPERATIVE INDICATIONS: ?The patient is a 74 year old female known to me who was referred to me for a large diaphragmatic hernia seen on recent CT. The patient has also GERD. Based on this information I recommended an upper endoscopy to evaluate the patient's symptoms. Risks and complications of the surgery were discussed with the patient in advance particularly the possibility of perforation or bleeding that may require surgical intervention. The patient understood the risks and was in agreement with the plan. ? PROCEDURE: After informed consent was obtained by the patient, the patient was ?transferred to the Operating Room and was placed in the supine position.? After successful induction of IV sedation, a mouth block was inserted and the patient was placed in the left lateral decubitus position. An upper endoscopy was performed next, the oropharynx and esophagus appeared within the normal limits. There was was a large 6-7cm type III diaphragmatic hernia with mixed sliding and paraesophageal component. The z-line was smooth. Two biopsies were obtained from the distal esophagus 2-3 cm proximal to the GE junction and two additional biopsies from the GE junction. The stomach was entered and it appeared to be of normal size. There was no gastritis. There was no stricture or ulcer. A biopsy was obtained from the gastric fundus and the antrum. No significant bleeding was noted from any of the biopsy sites. Retroflexion of the scope confirmed the presence of a large diaphragmatic hernia. The scope was then advanced into the duodenum which appeared to be normal as well. At that point the duodenum ?and the stomach were decompressed and the scope was withdrawn from the patient's mouth. The patient extubated and was transferred in stable condition to the Recovery Room for further care. I was present and performed all steps of the procedure. There were no residents to assist with this case. José Serrano M.D., Ph.D. Surgeon: Chandra Serrano MD Anesthesia: MAC Was an [employer] Manager used for this Procedure?: No Estimated blood loss (mL): 0 IV fluids (mL): 400 Urine output (mL): 0 Pathology: other (1) antrum x1, 2) fundus x1, 3) GE junction x2, 4) distal esophagus x2) Condition: stable Disposition: PACU
[2025-06-22 14:14] VITALS: BP 115/65; PULSE 80; RESP 16; TEMP 36.4; O2SAT 95
[2025-06-22 14:24] VITALS: BP 126/67; PULSE 77; RESP 16; TEMP 36.8; O2SAT 95
== END 2025-06-22 14:49 | disposition home or self-care (01) ==
PROVIDERS: PCP Nurse Practitioner Family; Visit Provider Surgery
PROC: 0DJ08ZZ Inspection of Upper Intestinal Tract, Via Natural or Artificial Opening Endoscopic (ICD-10-PCS; CPT 43235; principal; 2025-06-22 13:40)
DX: K44.9 Diaphragmatic hernia without obstruction or gangrene (principal); K21.9 Gastro-esophageal reflux disease without esophagitis; K20.80 Other esophagitis without bleeding; E11.22 Type 2 diabetes mellitus with diabetic chronic kidney disease; I12.9 Hypertensive chronic kidney disease with stage 1 through stage 4 chronic kidney disease, or unspecified chronic kidney disease; N18.9 Chronic kidney disease, unspecified; E78.00 Pure hypercholesterolemia, unspecified; M81.0 Age-related osteoporosis without current pathological fracture; E55.9 Vitamin D deficiency, unspecified; E04.2 Nontoxic multinodular goiter; E03.9 Hypothyroidism, unspecified; Z79.82 Long term (current) use of aspirin; Z79.84 Long term (current) use of oral hypoglycemic drugs; Z79.85 Long-term (current) use of injectable non-insulin antidiabetic drugs; Z79.899 Other long term (current) drug therapy; Z90.49 Acquired absence of other specified parts of digestive tract; Z98.890 Other specified postprocedural states
CPT/HCPCS: 43239; 82947; 88305; 88313; 88342; J2704

== ENCOUNTER → 2025-06-22 11:26 | Outpatient (BNV) | payer OTHER, SELFPAY | PROVIDERS: PCP Nurse Practitioner Family; Visit Provider Surgery | DX: K44.9 Diaphragmatic hernia without obstruction or gangrene (principal); K21.9 Gastro-esophageal reflux disease without esophagitis | CPT/HCPCS: 43239 ==

== ENCOUNTER → 2025-06-26 10:37 | Outpatient (REF) | payer OTHER, SELFPAY ==
--- NOTE | 2025-06-26 10:40 | CA_ITS ---
Acquisition Time: 2025-06-26 11:06:17 Total Exercise Time: 00:05:01 Test Indications: ABNORMAL ECHO Medications: AMLODIPINE ASA ATROVASTATIN Protocol: JAY Max HR: 160 BPM 110% of Pred: 145 BPM Max BP: 180/54 mmHG Max Work Load: 4.6 METS Exercise stress test with exercise 5 min 1 second of Jay stage 1, achieving 104% MPHR, 4.6 METS, with moderate shortness of breath, no arrythmia, with normotensive and brisk chronotropic response to exercise, without EKG changes meeting criteria for ischemia. Echo images obtained at rest and immediately post peak exercise. Definity contrast used. In recovery her shortness of breath quickly improved. Test reviewed with Dr Willis. STRESS ECHO : Technique : Images were obtained at rest and immediately post exercise within 55 seconds for wall motion analysis. Definity contrast was used to enhance endocardial definition, Images obtained in multiple views and compared side to side. Findings : At rest images are of good qaulity. There is normal LV systolic function with normal wall motion. RVSP are within normal limitts with suggestion of increased left atrial pressures. Post exercise images are of good quality. There is excellent augmentation of overall LV systolic function with no regional wall motion abnormalities. There is mild increase in RVSP post exercise which may be physiologic with no change in left atrial pressures. Conclusion : Stress echo is negative for ischemia or significant exercise induced diastoli dysfunction or pulmonary hypertenson. Referred By: Chandra Serrano Electronically Signed By: PEDRO LUIS WILLIS MD
== END ==
LOC: HO.CARD 10:37
PROVIDERS: PCP Nurse Practitioner Family; Visit Provider Surgery
DX: R93.1 Abnormal findings on diagnostic imaging of heart and coronary circulation (principal)
CPT/HCPCS: 93350; Q9957

== ENCOUNTER → 2025-06-26 10:40 | Outpatient (BNV) | payer OTHER, SELFPAY | PROVIDERS: PCP Nurse Practitioner Family; Visit Provider Internal Medicine Cardiovascular Disease | DX: R06.02 Shortness of breath (principal) | CPT/HCPCS: 93351; 93352 ==

== ENCOUNTER 2025-07-01 08:18 | Outpatient (AMB) | payer OTHER, SELFPAY ==
--- OUTSIDE RECORDS SUMMARY | 2025-07-01 08:37 | XMS_ITS | Clinical Summary ---
Author Organization [employer] Address [address] [facility] [address] [place] [address] Care Team Providers Care Mate First Name Role Phone Unavailable Primary Care Provider [...] age to complete this topic Insurance [facility] OPTIONS (O D-SNP) [place]ON[place] [id number]
--- OUTSIDE RECORDS SUMMARY | 2025-07-01 08:37 | XMS_ITS | Clinical Summary ---
Author Organization [facility] ity Address [address] [place] [address] Care Team Providers Care Marketing Information Manager Name Role Phone Unavailable Primary Care [...]
--- OUTSIDE RECORDS SUMMARY | 2025-07-01 08:37 | XMS_ITS | Encounter Summary ---
Author Organization [employer] Address [address] [facility] [address] [place] [address] Care Team Providers Care Crm Administrator Name Role Phone Unavailable Primary Care Provider Unavailabl e Encounter Details Date Type Department Care Team (Latest Contact Info) Description 09/29/2019 Abstract [facility] CONVERSIONS Dental, Provider, DDS Social [...]
[2025-07-01 22:56] VITALS: BMI 32.2
--- NOTE | 2025-07-01 22:56 | A.OFFVIS_ITS ---
VS Expanded 07/01/25 22:56 Height 4 ft 9 in Weight 149 lb BMI 32.2 Body Fat % 43.4 Body Fat Mass 64.6 Fat Free Mass 54.2 Visceral Fat Rating 15 Body Water % 38.8 Body Water Mass 57.8 Basal Metabolic Rate/Score 1,194 Intake Visit Reasons: TV Pre Op Diaphrag. 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* Dry Lumber Grader Required: Yes Dry Lumber Grader Services: Dry Lumber Grader Present Information Interpreted: clinical only Allergies No Known Allergies (No Known Allergies*) Allergy (Verified 07/01/25 22:58) Medication List - Last Reconciled 07/01/25 by Chandra Serrano MD alendronate 70 mg PO QWEEK alprazolam 0.5 mg PO BID PRN 30 days amlodipine 2.5 mg PO DAILY aspirin 1 tab PO DAILY atorvastatin 20 mg PO DAILY blood-glucose meter (FreeStyle Lite Meter kit) Free style Lite device check sugar 2 times a day calcium carbonate-vitamin D3 600 mg-12.5 mcg (500 unit) (Calcium with Vit D3) 1 cap PO BID 30 days cyanocobalamin (vitamin B-12) 1,000 mcg IM Q4W 90 days diclofenac sodium 1% (Voltaren Arthritis Pain) 4 grams topical BID PRN duloxetine 30 mg PO DAILY 90 days ezetimibe 10 mg PO DAILY 90 days fenofibrate nanocrystallized 145 mg PO DAILY 90 days ferrous sulfate 325 mg PO BID fluoxetine 40 mg PO DAILY FreeStyle Lite Strips (blood sugar diagnostic) Use to check blood sugar twice daily, fasting and a random blood sugar during the day. NS irbesartan 150 mg PO DAILY 90 days lancets Use to check blood sugar twice daily, fasting and a random blood sugar during the day. levothyroxine 50 mcg PO QAM magnesium 200 mg PO DAILY mecobalamin (vitamin B12) 1,000 mcg PO DAILY metformin 500 mg PO BID 90 days omeprazole 20 mg PO BID ondansetron 4 mg PO Q8H PRN ondansetron 4 mg PO Q12H pantoprazole 40 mg PO DAILY pen needle, diabetic (BD Ultra-Fine Micro Pen Needle) Once a week with Ozempic polyethylene glycol 3350 17 grams PO DAILY quetiapine 200 mg PO BEDTIME semaglutide 1 mg (0.75 mL) subcut QWEEK 30 days sucralfate 10 mL PO BID zolpidem 10 mg PO BEDTIME HPI Comments Details: This is the preop appointment for a large paraesophageal hernia repair [facility] Medical History (Updated 07/01/25 @ 22:53 by Chandra Serrano MD) Abnormal echocardiogram Vitamin B 12 deficiency Elevated cholesterol GERD (gastroesophageal reflux disease) CKD (chronic kidney disease) HTN (hypertension) Decreased renal function Multinodular thyroid Hypothyroidism Vitamin D deficiency T2DM (type 2 diabetes mellitus) Osteoporosis Surgical History H/O knee surgery Hx of thyroidectomy History of surgery on wrist Hx of cholecystectomy Family History Father Emphysema of lung Mother Myocardial infarction Hypertension Cardiovascular disease Social History [facility] Patient Tobacco Use Status: Never used Tobacco e-Cigarette/Vaping Use: Never Used Current occupational status: retired Cognitive needs: No Hearing needs: Yes Vision needs: Yes Physical Exam Vital Signs: BMI result Body Mass Index 32.2 Telehealth Telehealth Telehealth Platform: Telephone Location of provider rendering services: practice address Location of patient: address on file Patient Identification confirmed using: Name, : Yes Telehealth method: voice only Patient verbally consented to treatment: Yes Patient verbally consented to billing insurance company: Yes Patient informed of any privacy concerns related to visit: Yes Minutes spent on Phone/Video with Pt.: 30 Assessment & Plan Assessment & Plan (1) Paraesophageal hernia: Code(s): K44.9 - Diaphragmatic hernia without obstruction or gangrene Category: Medical Plan: 1. We discussed the potential etiology of the hernia that could be worsened by her weight. We discussed the details of the diaphragmatic hernia repair and the potential technical challenges such as being able to achieve enough mobilization of the esophagus back in the abdomen and being able to close the diaphragmatic muscle (crura) primarily with sutures. We also discussed the possibility of using a biologic mesh to close the hernia defect if the crura cannot be adequately re-approximated primarily with sutures. We also discussed the option of doing a gastropexy or a fundoplication to prevent postoperative reflux and prevent hernia recurrence. As we discussed, I favor the gastropexy as the fundoplication can cause several distrurbing symptoms such as gas-bloating, flatulence, inability to burp which can be bothersome to patients. Also we discussed the complexity of a potential hernia recurrence in association with a hernia recurrence. He was in agreement not to have a fundoplication. We also discussed that after surgery, he will need to be on a liquid diet with protein shakes the first week. The second week will add protein bars and soft foods and after the third week we will introduce small amounts of regular food. The transition to normal eating habits will take about 6 weeks which is the time required for the repair to heal completely. 2. Preop prescriptions were provided and explained the purpose of each one. Need to be purchased preop. Start Pantoprazole now as you get it from the pharmacy, 1 pill per day. Sucralfate and Zofran are for after surgery as needed. 3. Bowel prep: please do 7 packets ?of Miralax mixing each one with a an 8oz glass of water, crystal light, gatorade zero, or propel ?on 07/09/25 and the same amount on 07/08/25. The Miralax you begin with one packet at a time in 8oz water or crystal light, gatorade zero, or propel ?as early in the day as you can and you do them back to back until you finish them. Continue the protein shakes during? the bowel prep. 4. Needs to purchase 1oz medicine cups . 5. Needs to purchase Children's liquid Tylenol for postop pain control. 6. She needs to stop the Aspirin and Ozempic as of 07/02/25. Avoid motrin, Advil, Aleve, Ibuprofen, Naproxyn. Tylenol is OK. 7. She needs to purchase the Celebrate multivitamins from the hospital's gift shop. 8. Will do basic preop blood work-up any day between 07/02/25 and Sunday07/03/25 fasting for 12 hours and is scheduled to see the Anesthesiologist prior to the day of surgery. 9. Importance of adherence to postop folllow-up and recommendations was underscored and she understands that. 10. Stop food and bars as of Sunday07/03/25 and continue with 4 Celebrate REBUILD protein shakes (ONE scoop EACH in 8oz almond milk) at 8am-10am, 11am- 1pm, 2pm-4pm, 5pm-7pm and one more Celebrate REBUILD protein shake with HALF scoop in 8oz of almond milk at 8pm-10pm 11. No soups, broths or V8 12. The patient's?medical?history has been reviewed and they are considered low risk for post op DVT and therefore DVT prophylaxis is not considered necessary. Travel after surgery was reviewed. The patient has not disclosed any travel plans during the first 30 days after surgery and they have been advised that within the first 30 days after surgery any bus, plane, train or car travel over 2 hours in duration is contraindicated due to the possibility of developing blood clots from immobility. Any travel, needs to include periods of ambulation of 10 minutes in duration every 2 hours.? Patient was instructed to discuss any plans for travel during this period with their bariatric surgeon.? 13. As of tomorrow, please check your blood pressure daily in the morning. If your blood pressure is: Below 120/70: do not take the Amlodipine or Irbesartan 121/71 to 131/85: take HALF Amlodipine and HALF Irbesartan Over 132/86: take the whole Amlodipine and whole Irbesartan 14. Please take at the day of surgery the following medications: Only the Amlodipine and Irbesartan if the blood pessure is high enough to justify them based on the parameters above. 15. Stop any control pills and don't use them for one month after surgery 16. Absolutely no smoking or vaping, or marijuana until the surgery and for at least the first 4 weeks. Only nicotine patches are allowed. 17. Send me weight measurements on Sunday07/04/25 and then on 07/09/25, the day of surgery before you go to the hospital. 18. Avoid any steroids by mouth for any reason. Let me know if someone prescribes them to you Orders: Orders Partial Thromboplastin Time 07/01/25 E03.9 - Hypothyroidism, unspecified, E11.65 - Type 2 diabetes mellitus with hyperglycemia, I10 - Essential (primary) hypertension, K44.9 - Diaphragmatic hernia without obstruction or gangrene Complete Blood Count Auto Diff 07/01/25 E03.9 - Hypothyroidism, unspecified, E11.65 - Type 2 diabetes mellitus with hyperglycemia, I10 - Essential (primary) hypertension, K44.9 - Diaphragmatic hernia without obstruction or gangrene Hemoglobin A1c 07/01/25 E03.9 - Hypothyroidism, unspecified, E11.65 - Type 2 diabetes mellitus with hyperglycemia, I10 - Essential (primary) hypertension, K44.9 - Diaphragmatic hernia without obstruction or gangrene Lipid Panel 07/01/25 E03.9 - Hypothyroidism, unspecified, E11.65 - Type 2 diabetes mellitus with hyperglycemia, I10 - Essential (primary) hypertension, K44.9 - Diaphragmatic hernia without obstruction or gangrene Insulin 07/01/25 E03.9 - Hypothyroidism, unspecified, E11.65 - Type 2 diabetes mellitus with hyperglycemia, I10 - Essential (primary) hypertension, K44.9 - Diaphragmatic hernia without obstruction or gangrene C Reactive Protein 07/01/25 E03.9 - Hypothyroidism, unspecified, E11.65 - Type 2 diabetes mellitus with hyperglycemia, I10 - Essential (primary) hypertension, K44.9 - Diaphragmatic hernia without obstruction or gangrene Type and Screen 07/01/25 E03.9 - Hypothyroidism, unspecified, E11.65 - Type 2 diabetes mellitus with hyperglycemia, I10 - Essential (primary) hypertension, K44.9 - Diaphragmatic hernia without obstruction or gangrene Prothrombin Time INR 07/01/25 E03.9 - Hypothyroidism, unspecified, E11.65 - Type 2 diabetes mellitus with hyperglycemia, I10 - Essential (primary) hypertension, K44.9 - Diaphragmatic hernia without obstruction or gangrene Comprehensive Met. Panel 07/01/25 E03.9 - Hypothyroidism, unspecified, E11.65 - Type 2 diabetes mellitus with hyperglycemia, I10 - Essential (primary) hypertension, K44.9 - Diaphragmatic hernia without obstruction or gangrene TSH reflex Free T4 07/01/25 E03.9 - Hypothyroidism, unspecified, E11.65 - Type 2 diabetes mellitus with hyperglycemia, I10 - Essential (primary) hypertension, K44.9 - Diaphragmatic hernia without obstruction or gangrene Medications: New ondansetron Only take one every 12 hours as needed if you have nausea 4 mg PO Q12H 20 tabs 0RF nausea and vomiting R11.0 - Nausea pantoprazole 40 mg PO DAILY 90 tabs 0RF K21.9 - Gastro-esophageal reflux disease without esophagitis sucralfate 10 mL PO BID 600 mL 2RF K21.9 - Gastro-esophageal reflux disease without esophagitis polyethylene glycol 3350 Mix each measuring cup with 8oz of water, Crystal light, or Gatorade zero, or Propel and do 7 measuring cups on 07/07/25 and another 7 measuring cups on 07/08/25 17 grams PO DAILY 238 grams 0RF Z01.818 - Encounter for other preprocedural examination
== END 2025-07-03 10:04 | disposition home or self-care (01) ==
LOC: HO.HBS 08:18
PROVIDERS: PCP Nurse Practitioner Family; Visit Provider Surgery
DX: K44.9 Diaphragmatic hernia without obstruction or gangrene (principal)
CPT/HCPCS: 99214

== ENCOUNTER → 2025-07-01 08:18 | Outpatient (BNVA) | payer OTHER, SELFPAY | PROVIDERS: PCP Nurse Practitioner Family; Visit Provider Surgery | DX: Z01.818 Encounter for other preprocedural examination (principal); K44.9 Diaphragmatic hernia without obstruction or gangrene | CPT/HCPCS: 99212 ==

== ENCOUNTER 2025-07-03 11:18 | Outpatient (AMB) | payer OTHER, SELFPAY ==
--- NOTE | 2025-07-03 11:22 | A.OFFVIS_ITS ---
Vital Signs 07/03/25 11:23 Height 4 ft 9 in Weight 151 lb 0.266 oz BMI 32.7 BP 138/78 Blood Pressure Location Lt brachial Position Sitting Pulse 88 Pulse Source Pulse Oximeter Pulse Oximetry (%) 96 Oxygen Delivery Method Room Air Intake Visit Reasons: Nontoxic multinodular goiter Intake Note: New patient present today for Nontoxic multinodular goiter office visit. Internal Medicine Specialist Required: Yes Internal Medicine Specialist Language: Bolivian Accompanied by: Spouse Allergies No Known Allergies (No Known Allergies*) Allergy (Verified 07/03/25 11:26) Medication List - Last Reconciled 07/03/25 by Silvia Manley MD alendronate 70 mg PO QWEEK alprazolam 0.5 mg PO BID PRN 30 days amlodipine 2.5 mg PO DAILY aspirin 1 tab PO DAILY atorvastatin 20 mg PO DAILY blood-glucose meter (FreeStyle Lite Meter kit) Free style Lite device check sugar 2 times a day calcium carbonate-vitamin D3 600 mg-12.5 mcg (500 unit) (Calcium with Vit D3) 1 cap PO BID 30 days cyanocobalamin (vitamin B-12) 1,000 mcg IM Q4W 90 days diclofenac sodium 1% (Voltaren Arthritis Pain) 4 grams topical BID PRN duloxetine 30 mg PO DAILY 90 days ezetimibe 10 mg PO DAILY 90 days fenofibrate nanocrystallized 145 mg PO DAILY 90 days ferrous sulfate 325 mg PO BID fluoxetine 40 mg PO DAILY FreeStyle Lite Strips (blood sugar diagnostic) Use to check blood sugar twice daily, fasting and a random blood sugar during the day. NS irbesartan 150 mg PO DAILY 90 days lancets Use to check blood sugar twice daily, fasting and a random blood sugar during the day. levothyroxine 50 mcg PO QAM magnesium 200 mg PO DAILY mecobalamin (vitamin B12) 1,000 mcg PO DAILY metformin 500 mg PO BID 90 days omeprazole 20 mg PO BID ondansetron 4 mg PO Q8H PRN ondansetron 4 mg PO Q12H pantoprazole 40 mg PO DAILY pen needle, diabetic (BD Ultra-Fine Micro Pen Needle) Once a week with Ozempic polyethylene glycol 3350 17 grams PO DAILY quetiapine 200 mg PO BEDTIME semaglutide 1 mg (0.75 mL) subcut QWEEK 30 days sucralfate 10 mL PO BID zolpidem 10 mg PO BEDTIME HPI Comments Details: 74 YO F with PMHx multinodular thyroid and postsurgical hypothyroidism who is is reestablishing care in our Endocrine Clinic. Last seen more than 3 years ago. Here today with Wolf MARIE She reports having a Left hemithyroidectomy in [place] many years ago. She was then followed by Dr. Mitchell for multiple nodules within the remaining R lobe and did undergo FNA biopsy of 3 nodules 10/02/2013 with benign cytology. She had a repeat thyroid US May 2020 which revealed new nodules and significant growth of her previously visualized nodules. She remains on Levothyroxine 50 mcg PO daily. Last TSH Oct 2024 normal. She was scheduled for an FNA biopsy with her Ohri in Oct 2020 and February 2021. She missed both of these appointments. She did attend her biopsy 12/01/2021. She underwent FNA biopsy 12/01/2021 of her RMP 3.4 cm thyroid nodule with benign (bethesda category II) cytology. Ultrasound thyroid 05/14/2025 I reviewed the images myself which showed a surgically absent left thyroid gland, heterogenous right lobe with normal vascularity with a dominant right mid superior 3.2 cm solid hypoechoic nodule with punctate echogenic foci, TR 5 category. Major jump in size of the nodule from 2021 to 2023, then further increase in 2023, now it measures the same as it did back in 2021. Denies compressive sx. No family history of thyroid cancer. No history of head or neck radiation. Physical exam General: sitting comfortably in no acute distress HEENT: normocephalic/atraumatic, Neck: supple, Cardiac: normal heart sounds Pulm: normal breath sounds B/L, no added breath sounds Abd: not distended, no tenderness Extremities: no edema, no signs of myxedema Labs: Laboratory Tests 10/30/24 09:00 TSH 0.34 Laboratory Tests 12/08/21 08:03 TSH 0.81 US THYROID 05/14/25 CLINICAL INFORMATION: Nontoxic multinodular goiter. Status post left hemithyroidectomy. COMPARISON: December 02, 2024. TECHNIQUE: Linear transducer grayscale and color Doppler examination with attention to the region of the thyroid. FINDINGS: SIZE: Measurements of the thyroid lobes and nodules are given in sagittal, anteroposterior and transverse dimensions respectively. Right Thyroid Lobe: 6.1 x 3.4 x 2.5 cm, volume 27.4 mL. Previous: 7.8 x 3.5 x 2.5 cm, volume: 33 cc. Parenchyma: The gland echotexture is heterogeneous. Thyroid vascularity is normal.. Estimated total number of nodules greater than or equal to 1 cm: 1. Integrity Engineer nodules are described as follows: 1. Location: Upper/mid right thyroid lobe. Size: 3.2 x 2.5 x 2.7 cm, volume 10.9 mL. Previous: 5.4 x 3.7 x 2.5 cm, volume: 25.7 Nodule characteristics: Composition: Solid (2). Echogenicity: Hypoechoic (2). Shape: Not taller than wide (0). Margins: Smooth (0). Echogenic Foci: Punctate echogenic foci (3). Macrocalcifications (1). ACR TI-RADS total points: 8 ACR TI-RADS category: 5 NODES: No lymphadenopathy is seen in the tissue surrounding the thyroid gland. US/US thyroid IMPRESSION: ACR TI RADS 5. Thyroid US 05/11/2020: Right Thyroid Lobe: 5.5 x 2.6 x 2.4 cm, volume 18.0 mL. Previously 8.8 x 3.7 x 2.5 cm, volume 41.6 mL. Parenchyma: The gland echotexture is heterogeneous. Thyroid vascularity is normal. Left Thyroid Lobe: Surgically absent. No suspicious abnormality identified within the left thyroid postsurgical bed. Isthmus: Surgically absent. RIGHT THYROID LOBE: There are 4 nodules seen. 1. Location: Upper. Size: 2.4 x 2.0 x 2.1 cm. Previous: 1.6 x 1.6 x 1.7 cm. Nodule characteristics: Heterogeneous echotexture with smooth margins. No calcification is seen. There is intranodular blood flow present.. 2. Location: Mid anterior. Size: 1.3 x 0.8 x 1.1 cm. Previous: New since the previous study. Nodule characteristics: Heterogeneous and isoechoic with smooth margins. A macrocalcification is seen. No intranodular blood flow is noted.. 3. Location: Mid. Size: 0.6 x 0.6 x 0.6 cm. Previous: 1.1 x 0.8 x 1.1 cm. Nodule characteristics: Heterogeneous in echotexture containing a macrocalcification. Smoothly marginated. No internal vascular flow.. 4. Location: Mid lateral. Size: 0.6 x 1.0 x 0.7 cm. Previous: New since previous study. Nodule characteristics: Hypoechoic and smoothly marginated. No calcification noted. No intranodular blood flow.. NODES: No lymphadenopathy is seen in the tissue surrounding the thyroid gland. [facility] Medical History (Updated 07/01/25 @ 22:53 by Chandra Serrano MD) Abnormal echocardiogram Vitamin B 12 deficiency Elevated cholesterol GERD (gastroesophageal reflux disease) CKD (chronic kidney disease) HTN (hypertension) Decreased renal function Multinodular thyroid Hypothyroidism Vitamin D deficiency T2DM (type 2 diabetes mellitus) Osteoporosis Surgical History H/O knee surgery Hx of thyroidectomy History of surgery on wrist Hx of cholecystectomy Family History Father Emphysema of lung Mother Myocardial infarction Hypertension Cardiovascular disease Social History Housing: [facility] Patient Tobacco Use Status: Never used Tobacco e-Cigarette/Vaping Use: Never Used Current occupational status: retired Cognitive needs: No Hearing needs: Yes Vision needs: Yes Physical Exam Vital Signs: Last Vital Signs Pulse 88 07/03/25 11:23 BP 138/78 07/03/25 11:23 Pulse Ox 96 07/03/25 11:23 Oxygen Delivery Method Room Air 07/03/25 11:23 BMI result Body Mass Index 32.7 Assessment & Plan Assessment & Plan (1) Hypothyroidism: Code(s): E03.9 - Hypothyroidism, unspecified Category: Medical Qualifiers: Hypothyroidism type: unspecified Qualified Code(s): E03.9 - Hypothyroidism, unspecified Plan: See below (2) Multinodular thyroid: Code(s): E04.2 - Nontoxic multinodular goiter Category: Medical Plan: 74-year-old female with no family history of thyroid cancer with no personal history of head or neck radiation coming in today to re-establish care for thyroid nodules. Status post left hemithyroidectomy in [facility] many years ago. Was after that monitored for multiple right-sided nodules. Per chart review she did have FNA biopsy of 3 nodules on the right side in 2013 with benign cytology with Dr. Mitchell. She then had repeat thyroid ultrasound 2019 apparently with significant growth of her previously visualized nodules, who is scheduled for biopsies in 2020 which she canceled, then finally underwent FNA biopsy of right midpole 3.4 cm nodule in November 2021 with benign cytology. I spent a significant amount of time reviewing all of her imaging over the past couple of years, and she has a heterogenous right lobe with multiple nodules, almost a conglomerate of multiple nodules, with a right dominant midpole nodule which on most recent ultrasound thyroid 05/14/2025 I reviewed the images myself which showed a surgically absent left thyroid gland, heterogenous right lobe with normal vascularity with a dominant right mid superior 3.2 cm solid hypoechoic nodule with punctate echogenic foci, TR 5 category. Major jump in size of the nodule from 2021 to 2023, then further increase in 2023, now it measures the same as it did back in 2021. This is likely what are the nodules that was biopsied in 2013 and was benign and then again she had a right midpole dominant nodule biopsy in 2021 which was also benign. This has been biopsied twice and was benign. Per MYNOR guidelines if about nodule has been biopsied twice and benign, usually we do not need to follow them, however because she has had some difficulty imaging her neck and it is hard to define the exact boundaries of her nodules, resulting in some discrepancy in size. We will see her back in 1 year with a repeat ultrasound. She does not have any compressive symptoms. Developed postoperative hypothyroidism and is on levothyroxine 50 mcg daily. Last TSH from October 2024 was normal. Plan: -ordered ultrasound of the thyroid to be done can May 2026 prior to follow up in June 2026. -ordered thyroid blood work to be done prior to follow up in 1 year -continue levothyroxine 50 mcg daily Plan I spent 45 minutes in reviewing the record, seeing the patient and documenting in the medical record. Orders: Orders US thyroid 1 Year E03.9 - Hypothyroidism, unspecified, E04.2 - Nontoxic multinodular goiter Thyroid Stimulating Hormone 1 Year E03.9 - Hypothyroidism, unspecified Free T4 (Free Thyroxine) 1 Year E03.9 - Hypothyroidism, unspecified Patient Instructions: Do ultrasound of the thyroid around May 2026, someone we will call you to schedule this, please make sure this is done a few weeks prior to your next appointment with me in June 2026 Continue levothyroxine 50 mcg daily Also do thyroid blood work a few days prior to your next follow up with me, orders have been placed. Coding Level of Care Code New Pt Level 4 (13658) Diagnoses Hypothyroidism, unspecified type E03.9 Hypothyroidism type: unspecified Multinodular thyroid E04.2 Time Spent (min) 45
[2025-07-03 11:23] VITALS: BP 138/78; PULSE 88; O2SAT 96; BMI 32.7
== END 2025-07-03 12:02 | disposition home or self-care (01) ==
LOC: HO.ENCR 11:19
PROVIDERS: PCP Nurse Practitioner Family; Visit Provider Student in an Organized Health Care Education/Training Program
DX: E03.9 Hypothyroidism, unspecified (principal); E04.2 Nontoxic multinodular goiter
CPT/HCPCS: 99204

== ENCOUNTER 2025-07-06 | Outpatient (REF) | payer OTHER, SELFPAY ==
--- OUTSIDE RECORDS SUMMARY | 2025-07-03 12:10 | XMS_ITS | Clinical Summary ---
Author Organization [facility] ity Address [address] [place] [address] Care Team Providers Care Engineering Associate Name Role Phone Unavailable Primary Care Provider [...]
--- OUTSIDE RECORDS SUMMARY | 2025-07-03 12:10 | XMS_ITS | Clinical Summary ---
Author Organization [employer] Address [address] [place] [address] Care Team Providers Care X Ray Equipment Tester Name Role Phone Unavailable Primary Care Provider [...] to complete this topic Insurance [facility] [employer] OPT[employer] (O D-SNP) MICHAEL ALONSO [id number]
--- OUTSIDE RECORDS SUMMARY | 2025-07-03 12:10 | XMS_ITS | Encounter Summary ---
Author Organization [facility] Address [address] [place] [address] Care Team Providers Care Chef Teacher Name Role Phone Unavailable Primary Care Provider Unavailabl e Encounter Details Date Type Department Care Team (Latest Contact Info) Description 09/29/2019 Abstract [facility] CONVERSIONS Dental, Provider, DDS Social History [...]
--- OUTSIDE RECORDS SUMMARY | 2025-08-11 11:33 | XMS_ITS | Clinical Summary ---
Author Organization [employer] Address [address] [facility] [address]t [place] [address] Care Team Providers Care Cotton Bag Sewer Name Role Phone Unavailable Primary Care Provider [...] age to complete this topic Insurance [facility] NURSING HOME OPTIONS (O D-SNP) MICHAEL ALONSO [id number]
--- OUTSIDE RECORDS SUMMARY | 2025-08-11 11:33 | XMS_ITS | Clinical Summary ---
Author Organization [facility] ity Address [address] [place] [address] Care Team Providers Care Flight Security Specialist Name Role Phone Unavailable Primary Care [...] 75+ series) 2024 COVID-19 Vaccine ( - 2024-2 6 season) 2025 Influenza Vaccine (#1) 2025 HIB [...]
--- OUTSIDE RECORDS SUMMARY | 2025-08-11 11:33 | XMS_ITS | Encounter Summary ---
Author Organization [employer] Address [address] [facility] [address] [place] [address] Care Team Providers Care Rental Clerk Tool And Equipment Name Role Phone Unavailable Primary Care Provider Unavailabl e Encounter Details Date Type Department Care Team (Latest Contact Info) Description 09/29/2019 Abstract [facility] CONVERSIONS Dental, Provider, DDS Social History [...]
== END 2025-07-06 00:01 ==
LOC: CF
PROVIDERS: PCP Nurse Practitioner Family; Visit Provider Student in an Organized Health Care Education/Training Program
DX: E04.2 Nontoxic multinodular goiter (principal); E89.0 Postprocedural hypothyroidism; Z79.899 Other long term (current) drug therapy
CPT/HCPCS: 99202

== ENCOUNTER 2025-07-09 07:50 | Inpatient (IN) | payer OTHER, SELFPAY ==
--- OUTSIDE RECORDS SUMMARY | 2025-06-26 08:53 | XMS_ITS | Clinical Summary ---
Author Organization [employer] Address [address] [place] [address] Care Team Providers Care Band Top Maker Name Role Phone Unavailable Primary Care Provider [...] patient's age to complete this topic Insurance [facility] OPTIONS (O D-SNP) [place] [id number]
--- OUTSIDE RECORDS SUMMARY | 2025-06-26 08:53 | XMS_ITS | Encounter Summary ---
Author Organization [employer] Address [address] [facility] [address] [place] [address] Care Team Providers Care Rejected Items Clerk Name Role Phone Unavailable Primary Care Provider Unavailabl e Encounter Details Date Type Department Care Team (Latest Contact Info) Description 09/29/2019 Abstract [facility] CONVERSIONS Dental, Provider, DDS Social History [...]
[2025-07-03 10:56] LABS: MANUAL DIFF FLAG NO
[2025-07-03 11:03] LABS: Hematocrit 31.6 % (37.0-47.0); Hemoglobin 10.2 g/dl (12.0-16.0); Imm Gran Abs Auto 0.03 X10*3/uL (0.00-0.03); Imm Gran Pct Auto 0.4 % (0.0-0.4); Lymphocytes Absolute Auto 2.4 X10*3/uL (1.2-4.9); Mean Corpuscular HGB Conc 32.3 g/dl (31.0-35.0); Mean Corpuscular Hemoglobin 25.1 pg (27.0-33.0); Mean Corpuscular Volume 77.6 fL (80.0-98.0); NRBC Abs Auto 0.000 X10*3/uL (0.0-0.012); NRBC Pct Auto 0.0 /100WBC (0.0-0.2); Platelet Count 348 X10*3/uL (160-400); Red Blood Count 4.07 X10*6/uL (4.20-5.50); White Blood Count 7.3 X10*3/uL (4.8-10.8)
[2025-07-03 11:11] LABS: INTERNATIONAL NORM RATIO 1.1 (0.9-1.1); Prothrombin Time 12.1 SEC (10.9-12.4)
[2025-07-03 11:13] LABS: Partial Thromboplastin Time 28.7 SEC (26.7-34.1)
[2025-07-03 11:50] LABS: Hemoglobin A1C 115.4178 umol/L; Total Hemoglobin (HGBA1C) 2629.8638 umol/L
[2025-07-03 12:44] LABS: Anion Gap 14 (12-20)
[2025-07-03 12:49] LABS: Alanine Aminotransferase 13 U/L (0-31); Albumin Level 4.7 g/dL (3.5-5.0); Alkaline Phosphatase 41 U/L (39-117); Aspartate Amino Transferase 18 U/L (5-31); Blood Urea Nitrogen 34 mg/dL (9-16); Calcium 9.8 mg/dL (8.4-10.2); Carbon Dioxide 26 mmol/L (22-29); Chloride 106 mmol/L (96-108); Cholesterol 149 mg/dL (<200); Estimated Glomerular Filt Rate 34; HDL Cholesterol 66 mg/dL (>40); Potassium 4.7 mmol/L (3.3-5.1); Sodium 141 mmol/L (135-145); Total Protein 7.2 g/dL (6.5-8.0); Triglycerides 58 mg/dL (<150)
[2025-07-03 13:11] LABS: Free T4 (Free Thyroxine) 1.04 ng/dL (0.71-1.85)
[2025-07-06 12:03] VITALS: BMI 31.6
--- NOTE | 2025-07-06 13:15 | HO.ANESPROP2 ---
Documented by User: Jacqueline Zeng NP 07/06/25 13:18 HPI - Anesthesia Eval Consult details Narrative: 74yo F for Hernia Diaphragmatic Lap Reducible PMFSH Active Problems Active Problems: All Active Problems Paraesophageal hernia (Acute) Hiatal hernia (Acute) Nausea & vomiting (Acute) RUQ pain (Acute) Dry skin (Acute) BPPV (benign paroxysmal positional vertigo) (Acute) Physical exam (Acute) Tear of medial meniscus of right knee (Acute) CKD stage 3a, GFR 45-59 ml/min (Acute) FAZAL (acute kidney injury) (Acute) Right knee pain (Acute) Acute pain of right knee (Acute) [place] (hard of hearing) (Acute) Murmur (Acute) Iron deficiency (Acute) B12 deficiency (Acute) Low TSH level (Acute) Anemia (Acute) HTN (hypertension) (Acute) Skin lesions (Acute) Screening for breast cancer (Acute) Tachycardia (Acute) Encounter for laboratory testing for COVID-19 virus (Acute) GERD (gastroesophageal reflux disease) (Acute) Abnormal echocardiogram (Acute) Decreased renal function (Acute) Multinodular thyroid (Acute) Hypothyroidism (Acute) Vitamin D deficiency (Acute) T2DM (type 2 diabetes mellitus) (Acute) Osteoporosis (Acute) Past Medical History Medical History Abnormal echocardiogram Vitamin B 12 deficiency Elevated cholesterol GERD (gastroesophageal reflux disease) CKD (chronic kidney disease) HTN (hypertension) Decreased renal function Multinodular thyroid Hypothyroidism Vitamin D deficiency T2DM (type 2 diabetes mellitus) Osteoporosis Family History Family History Father Emphysema of lung Mother Myocardial infarction Hypertension Cardiovascular disease Family history of problems with anesthesia: No Surgical History Surgical History History of esophagogastroduodenoscopy (EGD) H/O knee surgery Hx of thyroidectomy History of surgery on wrist Hx of cholecystectomy History of Problems with Anesthesia: No Social History Social History Housing: Condominium Are you a primary patient care nursing assistant to a significant other at home: No Do you presently have visiting nurse or other home services: Yes Patient Tobacco Use Status: Never used Tobacco e-Cigarette/Vaping Use: Never Used Use of substances other than those prescribed or required for medical reasons: No Have you been hit, kicked, punched, or otherwise hurt by someone within the past year? If so, by whom?: No Are you DNR?: No Advance Directives: No Advance Directives Information Provided: Yes Advance Directives on File: No Patient : No : No Poor oral hygiene: Yes Current occupational status: retired Cognitive needs: No Hearing needs: Yes Vision needs: Yes Meds Allergies Allergy/AdvReac Type Severity Reaction Status Date / Time No Known Allergies (No Known Allergy Verified 07/03/25 11:26 Allergies*) Home Medications ?Medication ?Instructions ?Recorded ?Confirmed ?Last Taken ?Type fluoxetine 40 mg capsule 40 mg PO DAILY 06/03/24 07/06/25 07/08/25 History quetiapine 200 mg tablet 200 mg PO BEDTIME 06/03/24 07/06/25 07/08/25 History zolpidem 10 mg tablet 10 mg PO BEDTIME 02/11/25 07/06/25 07/08/25 History amlodipine 2.5 mg tablet 2.5 mg PO DAILY PRN Hypertension 07/06/25 07/06/25 07/09/25 History cholecalciferol (vitamin D3) 25 25 mcg PO DAILY 07/06/25 07/06/25 07/08/25 History mcg (1,000 unit) tablet (Vitamin D3) ferrous sulfate 325 mg (65 mg 325 mg PO DAILY 07/06/25 07/06/25 07/08/25 History iron) tablet irbesartan 150 mg tablet 150 mg PO DAILY PRN Hypertension 07/06/25 07/06/25 07/09/25 History metformin 500 mg tablet 500 mg PO DAILY 07/06/25 07/06/25 07/08/25 History aspirin 81 mg capsule 81 mg PO DAILY 07/09/25 07/09/25 06/16/25 History levothyroxine 50 mcg tablet 50 mcg PO DAILY@0600 07/09/25 07/09/25 07/08/25 History Exam Height,Weight and Vital Signs: Height 4 ft 9 in Weight 66.224 kg Pertinent Lab Results Pertinent Lab Results: Laboratory Tests 07/03/25 07/03/25 10:46 10:56 WBC 7.3 RBC 4.07 L Hgb 10.2 L Hct 31.6 L MCV 77.6 L MCH 25.1 L MCHC 32.3 RDW 14.1 Plt Count 348 MPV 10.3 Immature Gran % (Auto) 0.4 Neut % (Auto) 56.4 Lymph % (Auto) 33.1 [place] % (Auto) 6.1 Eos % (Auto) 3.4 Baso % (Auto) 0.6 Lymph # (Auto) 2.4 [place] # (Auto) 0.4 Eos # (Auto) 0.3 Baso # (Auto) 0.0 Abs Immat Gran (auto) 0.03 Absolute Neuts (auto) 4.1 Absolute Nucleated RBC 0.000 Nucleated RBC % (auto) 0.0 PT 12.1 INR 1.1 APTT 28.7 Sodium 141 Potassium 4.7 Chloride 106 Carbon Dioxide 26 Anion Gap 14 BUN 34 H Creatinine 1.49 H Estim Creat Clear Calc TNP Estimated GFR 34 Random Glucose 115 Estimat Average Glucose 131 Hemoglobin A1c % 6.2 H Insulin Level 5 Calcium 9.8 Total Bilirubin 0.3 AST 18 ALT 13 Alkaline Phosphatase 41 C-Reactive Protein 0.40 Total Protein 7.2 Albumin 4.7 Triglycerides 58 Cholesterol 149 LDL Cholesterol, Calc 72 HDL Cholesterol 66 TSH 0.27 L Free T4 1.04 Blood Type B Positive Antibody Screen NEGATIVE Narrative Narrative: EKG 02/2025 Vent. Rate : 106 BPM Atrial Rate : 106 BPM P-R Int : 144 ms QRS Dur : 66 ms QT Int : 330 ms P-R-T Axes : 58 42 75 degrees QTcB Int : 438 ms Sinus tachycardia Low voltage QRS Otherwise normal ECG No previous ECGs available Cardiopulmo Stress Test 06/2025 Conclusion : Stress echo is negative for ischemia or significant exercise induced diastoli dysfunction or pulmonary hypertenson. ECHO 2022 Conclusions: - The left ventricular systolic function is normal. The calculated ejection fraction is 66% by biplane method. - There is mild calcification of the aortic valve. - There is mild mitral annular calcification. - There is mild mitral valve regurgitation. Assessment and Plan Assessment Anesthesia Assessment: Chart Reviewed Final Anesthetic Review Family History of Problems with Anesthesia: No History of Problems with Anesthesia: No Documented by User: Dotty Rodriguez MD 07/09/25 10:07 [facility] Past Medical History Medical History Abnormal echocardiogram Vitamin B 12 deficiency Elevated cholesterol GERD (gastroesophageal reflux disease) CKD (chronic kidney disease) HTN (hypertension) Decreased renal function Multinodular thyroid Hypothyroidism Vitamin D deficiency T2DM (type 2 diabetes mellitus) Osteoporosis Family History Family History Father Emphysema of lung Mother Myocardial infarction Hypertension Cardiovascular disease Surgical History Surgical History History of esophagogastroduodenoscopy (EGD) H/O knee surgery Hx of thyroidectomy History of surgery on wrist Hx of cholecystectomy Social History Social History Housing: Condominium Are you a primary patient care nursing assistant to a significant other at home: No Do you presently have visiting nurse or other home services: Yes Patient Tobacco Use Status: Never used Tobacco e-Cigarette/Vaping Use: Never Used Use of substances other than those prescribed or required for medical reasons: No Have you been hit, kicked, punched, or otherwise hurt by someone within the past year? If so, by whom?: No Are you DNR?: No Advance Directives: No Advance Directives Information Provided: Yes Advance Directives on File: No Patient : No : No Poor oral hygiene: Yes Current occupational status: retired Cognitive needs: No Hearing needs: Yes Vision needs: Yes Meds Allergies Allergy/AdvReac Type Severity Reaction Status Date / Time No Known Allergies (No Known Allergy Verified 07/03/25 11:26 Allergies*) Home Medications ?Medication ?Instructions ?Recorded ?Confirmed ?Last Taken ?Type fluoxetine 40 mg capsule 40 mg PO DAILY 06/03/24 07/06/25 07/08/25 History quetiapine 200 mg tablet 200 mg PO BEDTIME 06/03/24 07/06/25 07/08/25 History zolpidem 10 mg tablet 10 mg PO BEDTIME 02/11/25 07/06/25 07/08/25 History amlodipine 2.5 mg tablet 2.5 mg PO DAILY PRN Hypertension 07/06/25 07/06/25 07/09/25 History cholecalciferol (vitamin D3) 25 25 mcg PO DAILY 07/06/25 07/06/25 07/08/25 History mcg (1,000 unit) tablet (Vitamin D3) ferrous sulfate 325 mg (65 mg 325 mg PO DAILY 07/06/25 07/06/25 07/08/25 History iron) tablet irbesartan 150 mg tablet 150 mg PO DAILY PRN Hypertension 07/06/25 07/06/25 07/09/25 History metformin 500 mg tablet 500 mg PO DAILY 07/06/25 07/06/25 07/08/25 History aspirin 81 mg capsule 81 mg PO DAILY 07/09/25 07/09/25 06/16/25 History levothyroxine 50 mcg tablet 50 mcg PO DAILY@0600 07/09/25 07/09/25 07/08/25 History Exam Airway Mallampati Class: III (permanent bridges) TM Dist: >3cm Neck ROM: Full Loose/Missing/Broken Teeth: No Heart: RRR Lungs: CTA Assessment and Plan Assessment Anesthesia Assessment: Anesthesia Plan Discussed Final Anesthetic Review NPO: Yes ASA Class: III Final Preanesthetic Review: Meds/Allgs Chart Reviewed, Consent Obtained/Reviewed and Anes Risks/Benef Reviewed Patient Risk: Intermediate Procedure Risk: Intermediate Anesthetic Plan Anesthetic Plan: GA Disposition: Standard PACU
[2025-07-09] VITALS (20 sets, daily range): BP systolic 109–159; BP diastolic 46–69; PULSE 78–93; RESP 9–19; TEMP 36.1–36.8; O2SAT 94–98; BMI 31.5
[2025-07-09 08:01] LABS: Glucose, Whole Blood 162 mg/dL (60-115)
--- NOTE | 2025-07-09 08:07 | PHA.MEDREC ---
Pharmacy Consult ? Medication Reconciliation Pharmacy has completed the medication reconciliation. reviewed med rec done by nursing
[2025-07-09] MEDS: Lactated Ringers 1,000 ML 999 ML IV (08:13)
[2025-07-09] MEDS: Aprepitant 32 MG/4.4 ML VIAL IVPUSH (08:20)
--- NOTE | 2025-07-09 10:06 | MHC.SHP ---
Pre-Procedural Eval Section A - 24 Hr Update-Section A only Date of Service: 07/09/25 The patient is an INPATIENT: Yes The patient has been examined within 24 hours of the surgical procedure. The History & Physical has been completed within 30 days and I have reviewed it.: Yes Section B - Complete if H&P > 30 days Chief Complaint: Diaphragmatic hernia Relevant Family History (Specify if Yes): No Relevant Social History: None Present Medications: None Medical History: No relevant PMH History of Previous Operations: No relevant previous surgery Allergies: Allergies Allergy/AdvReac Type Severity Reaction Status Date / Time No Known Allergies (No Known Allergy Verified 07/03/25 11:26 Allergies*) Review of Systems Sugical H&P ROS: Negative: Constitution, Cardiovascular, Respiratory, Neurological, Psychiatric, Hem-Onc, Allergic/Immunologic, Gastrointestinal, Genitourinary, Musculoskeletal, Integumentary, Endocrine and Eyes/Ears/Nose/Throat Exam Surgical H&P Exam: Normal: HEENT, Normal: Heart, Normal: Lungs, Normal: Extremities, Normal: Abdomen, Normal: Skin and Normal: Neurological Plan Diagnosis/Plan: Unchanged I have reviewed the history and physical and performed a pertinent physical examination on my patient. No changes have occurred unless specified. Time Spent With Patient Time: Total time managing care of this patient today ____ minutes.
--- NOTE | 2025-07-09 10:07 | P.BOP_ITS ---
Brief Operative Note Date of Service: 07/09/25 Pre-op diagnosis: Large paraesophageal hernia Procedure: Date of Service: 07/09/2025 Pre-op diagnosis: Large paraesophageal hernia Post-op diagnosis: same (Giant paraesophageal hernia & abdominal adhesions) Procedure: Procedure: COMORBIDITIES: GERD, diaphragmatic hernia, hyperlipidemia, anxiety, depression, hypertension, knee pain ?INDICATIONS: The patient is a 74 year old female who was referred to me from Dr. Luz for a diaphragmatic hernia and GERD confirmed by EGD and CT. The patient is scheduled today for diaphragmatic hernia repair. Risks of recurrent hernia, dysphagia, persistent GERD, VTE, leak, infection and bleeding were discussed with the patient and he is in agreement with the plan. PROCEDURE: Esophago-gastroscopy, laparoscopic extensive lysis of adhesions, laparoscopic repair of incarcerated diaphragmatic hernia and laparoscopic gastropexy. DESCRIPTION OF PROCEDURE: After informed consent was obtained from the patient, the patient was given preoperative antibiotics, and was transferred to the operating room. After successful induction of general anesthesia, pneumatic compression devices were placed on both lower extremities. An upper endoscopy was performed next. The oropharynx and upper esophagus appeared to be within normal limits. A large diaphragmatic hernia was seen. The stomach was entered and the scope was advanced all the way to the pylorus.? After all fluid and air were suctioned and the stomach was fully decompressed, the scope was withdrawn and secured in the mid esophagus. The patient was then prepped and draped in the usual sterile manner. Abdominal access was established at the left upper quadrant with the Veress needle because the patient had an upper midline incision from previous open cholecystectomy. Once the abdomen was insufflated with CO2 to a pressure of 15 mmHg, two 5 mm Versi-step ports were placed at the left flank along the anterior axillary line. I checked where the Veress needle had been placed and there was no injury. The needle was removed and an additional 5 mm Versi step port was placed there. With these 3 trocars all the adhesions between the omentum and the anterior abdominal wall and the left liver lobe were divided completely. Following that, the patient was placed in a steep reverse Trendelenburg position. Following that additional ports were placed, specifically one 5 mm Versi-step port to the left upper and one 5 mm Versi-step to the right upper quadrant. 1% lidocaine plain was used to infiltrate all port sites as well as all fascia defects. An additional 5 mm port was placed to the right flank for the Mediflex retractor that was used to retract the left lobe of the liver. There was a giant paraesophageal hernia with about one third of the stomach herniated into the chest next to the esophagus. I then opened the gastrocolic ligament between the transverse colon and the greater curvature of the stomach with the ultrasonic device to enter the lesser sac and facilitate the ligation of the short gastric vessels. I started at at the upper third along the greater curvature and using the Thunderbeat, all attachments were divided. There was an obvious significant-sized paraesophageal hiatal hernia. The stomach was incarcerated into the mediastinum with multiple thick adhesions. Mobilization of the stomach was very difficult and required tedious and careful dissection of the proximal short gastric vessels. I continued dissecting along the hiatus toward the left yajaira into the mediastinum mobilizing the hernia sac from the mediastinum. The esophagus was carefully dissected off the aorta. The pleura spaces were not violated in either side. The pars flaccida was opened. It was actually herniated into the hernia defect. The vena cava was not dilated and it was carefully protected. I then continued by dissecting even further into the posterior retro-esophageal space all the way to the angle of His. I continued to mobilize the esophagus into the mediastinum circumferentially. The esophagus was densely adhrent to the aorta and the majority of these adhesions were mobilized. Both vagal nerves were seen and preserved. With extensive circumferential dissection into the mediastinum, I was able to bring the GE junction at least 3 cm below the crura. I closed the hernia defect with four interrupted #0 Surgidac sutures using the Endo Stitch device, three of which were placed posterior and one of which anterior to the esophagus. The bites were carefully placed to include both the ventral and dorsal aspect of the two crura, advancing slightly more at the left yajaira as it was located more diagonally than the right. ? A gastropexy was then performed in order to prevent postoperative GERD and partial gastric volvulus. Several interrupted 2.0 Surgidac sutures were placed between the greater curvature of the dissected stomach and the previously divided greater omentum and gastro-colic ligament using the Endo-Stitch device. ?An upper endoscopy was performed. There was no narrowing at the GE junction or any esophageal injury. The scope was easily advanced all the way to the pylorus which was clearly visualized. There was no narrowing anywhere. I confirmed that the GE junction was 3cm intra-abdominally. At that point the gastroscope was withdrawn from the patient?s mouth while we were decompressing the bowel and the stomach from any remaining air. I looked into the lesser sac to see how the stomach was situating and it was situating well. There was no bleeding from the, spleen, or short gastric vessels. The Mediflex retractor was removed, and the undersurface of the liver was inspected and there was no bleeding. The patient was placed in supine position. Then 30cc of Ropivacaine plain with 10 mg of Dexamethasone were used to infiltrate the fascial closure as well as all skin incisions. At this point, the abdomen was deflated, all ports were removed under direct vision, and no bleeding was noted from any of the port sites. The skin incisions were irrigated with saline and were closed with 4-0 absorbable monofilament sutures. Steri- Strips and OpSites were used to cover all incisions. The patient was extubated and was transferred in stable condition to the recovery room for further care. I was present and performed all rayo parts of the procedure. Ms. Nelsonjamison was the wet process miller head assistant. There were no residents to assist with this case. José Serrano MD, PhD, FACS Surgeon: Chandra Serrano MD Anesthesia: GETA, local and other (TAP block) Was an Sap Bods Developer used for this Procedure?: No Sap Bods Developer: Mavis Frances Estimated blood loss (mL): 10 IV fluids (mL): 1,300 Urine output (mL): 0 (No Henning to record output) Pathology: other (Gastro-esophageal fat pad) Condition: stable Disposition: PACU
--- NOTE | 2025-07-09 10:15 | P.PNGS_ITS ---
Subjective Subjective Date of Service: 07/09/25 Interval history: Feels well. Mild incisional pain. She is tolerating phase 1 bariatric diet Physical Exam 2 Vital Signs: Vital Signs: Last Vital Signs Temp 97.5 F 07/09/25 07:54 Pulse 78 07/09/25 07:54 Resp 18 07/09/25 07:54 BP 129/67 07/09/25 07:54 Pulse Ox 97 07/09/25 07:54 O2 Del Method Room Air 07/09/25 07:54 BMI result Body Mass Index 31.5 GI: Inspection: Yes normal to inspection, Yes incision (clean, dry and intact) and Yes obesity Palpation (GI): Soft to palpation Extrem: Right lower extremity: normal to inspection (no calf tenderness) L eft lower extremity: normal to inspection (no calf tenderness) Objective Data Active Medications Albuterol/Ipratropium (Albuterol/Iprat 2.5/0.5mg 3 Ml Ampul.Neb) 3 ml INHALE ONCE PRN PRN Reason: Bronchospasm/wheezing Stop: 07/09/25 16:07 Fentanyl (Fentanyl Citrate/Pf 100 Mcg/2 Ml Vial) 25 mcg IVPUSH Q5M PRN PRN Reason: Pain, Moderate to Severe (Pain Scale 4-10) Stop: 07/09/25 16:07 Haloperidol Lactate (Haloperidol Lactate 5 Mg/Ml Vial) 1 mg IVPUSH ONCE PRN PRN Reason: intractable nausea Stop: 07/09/25 16:07 Hydromorphone HCl (Hydromorphone Hcl 0.5 Mg/0.5 Ml Syringe) 0.25 mg IVPUSH Q5M PRN PRN Reason: Pain, Moderate to Severe (Pain Scale 4-10) Stop: 07/09/25 16:07 Lactated Ringer's (Lr) 1,000 mls @ 100 mls/hr IVCONT .Q10H ALPHONSO Stop: 07/09/25 11:59 Naloxone HCl (Naloxone Hcl 0.4 Mg/Ml Vial) 0.04 mg IVPUSH Q5M PRN PRN Reason: Excessive sedation or RR < 8 Ondansetron HCl (Ondansetron Hcl 4 Mg/2 Ml Vial) 4 mg IVPUSH ONCE PRN PRN Reason: Nausea and Vomiting Stop: 07/09/25 16:07 Oxycodone HCl (Oxycodone Hcl Immed Release 5 Mg Tablet) 5 mg PO ONCE PRN PRN Reason: Pain, Moderate(Pain Scale 4-6) if no IV Access Stop: 07/09/25 16:07 Labs 07/03/25 10:56 07/03/25 10:56 Labs: Laboratory Results - last 24 hr 07/09/25 07:57 POC Glucose 162 H Procedures Date of Service Date of Service: 07/09/25 Progress Note: A&P Assessment and plan (1) Paraesophageal hernia: Status: Acute Assessment and Plan: s/p laparoscopic lysis of adhesions, diaphragmatic hernia repair and gastropexy Doing well Will check am labs and if OK the patient will be discharged home (2) GERD (gastroesophageal reflux disease): Status: Acute (3) HTN (hypertension): Status: Acute (4) T2DM (type 2 diabetes mellitus): Status: Acute (5) Hypothyroidism: Status: Acute (6) Depression: Status: Acute (7) Anxiety: Status: Acute (8) Hyperlipidemia: Status: Acute (9) Atrial septal hypertrophy: Status: Acute (10) S/P repair of paraesophageal hernia: Status: Acute Time Spent With Patient Time: Total time managing care of this patient today ____ minutes. Quality Stroke Does the patient have a stroke diagnosis?: No VTE Prior VTE?: No VTE Risk Level:: Surgical - moderate VTE Device Contraindication: N/A - Device Ordered VTE Drug Contraindication: Treatment Not Indicated
--- NOTE | 2025-07-09 13:34 | P.DS_ITS ---
DS: Providers Provider Date of admission: 07/09/25 07:50 Primary care physician: Bryan Luz [facility] DS: Diagnosis Discharge Diagnosis (1) Paraesophageal hernia: Status: Acute (2) GERD (gastroesophageal reflux disease): Status: Acute (3) HTN (hypertension): Status: Acute (4) T2DM (type 2 diabetes mellitus): Status: Acute (5) Hypothyroidism: Status: Acute (6) Depression: Status: Acute (7) Anxiety: Status: Acute (8) Hyperlipidemia: Status: Acute (9) Atrial septal hypertrophy: Status: Acute (10) S/P repair of paraesophageal hernia: Status: Acute DS: Summary Hospital Course Hospital Course: ADMITTING DIAGNOSIS: diaphragmatic hernia, obesity, atrial septal hypertrophy, HLD, anxiety, depression, BPPV, CKD stage 3a, anemia, HTN, GERD, hypothyroid, T2DM, osteoporosis DISCHARGE DIAGNOSIS: same, s/p gastropexy with diaphragmatic hernia repair PAST SURGICAL HISTORY:? H/O knee surgery Hx of thyroidectomy History of surgery on wrist Hx of cholecystectomy PROCEDURE: upper endoscopy, laparoscopic diaphragmatic hernia repair and gastropexy DISCHARGE SUMMARY: History of Present Illness: The patient is a?74 year-old woman with a BMI of?31.5 kg/m2 and associated co- morbidities as described above. The patient was found to have a diaphragmatic hernia as well as persistent anemia, GERD and progressively worse SOB. She was electively scheduled for laparoscopic, possible open diaphragmatic hernia repair and gastropexy. Risks and complications of the surgery were discussed with the patient in advance, particularly the possibility of , pulmonary embolism, anastomotic leak, bleeding, bowel injury, GERD, cardiac, renal or pulmonary complications. The patient understood all the risks and was in agreement with the surgical plan. Hospital Course: The patient underwent an uneventful laparoscopic gastropexy and repair of diaphragmatic hernia on the day of admission. Postoperatively, the patient was transferred to the surgical floor. The patient received IV acetaminophen and IV Dilaudid for pain control. Patient was started on bariatric phase 1 diet POD #0. On postoperative day one, the patient was feeling well without nausea, vomiting, fevers, or tachycardia. The patient had some mild incisional pain and the abdomen was soft.? ? On the morning of postoperative day one, the patient was continued on 1 ounce of water or ice every half hour. During the day, the patient did fairly well, having some incisional pain, but able to ambulate adequately and to tolerate liquids well. Since the patient is doing well, we decided that the patient was ready to be discharged. The patient was given instructions to follow-up in office next week and to call the office for any fever over 101, persistent abdominal pain, nausea, vomiting, GERD, symptoms of DVT such as calf tenderness, or leg swelling, or pulmonary embolism such as chest pain or shortness of breath.? The patient was also instructed to drink 40-60 ounces of liquids per day using the 1-ounce cups. The patient had been given prescriptions for Tylenol for pain, Zofran prn for nausea, and pantoprazole and carafate previously. The patient was encouraged to ambulate and use the incentive spirometer. The patient was allowed to shower, but no baths, and encouraged to stay active at home. All of these instructions were given to the patient personally. All questions were answered and the patient understood all instructions, the instructions were also given to the patient in print. Time Attestation Discharge Coordination Time (in mins): 30 Quality: Safe Use of Opioids Does Pt have an Active Cancer Diagnosis on the Problem List?: No Quality: Stroke Does the patient have a stroke diagnosis?: No Physical Exam Vital Signs: Vital Signs: Last Vital Signs Temp 97.8 F 07/09/25 13:10 Pulse 91 07/09/25 13:23 Resp 16 07/09/25 13:23 BP 141/66 H 07/09/25 13:23 Pulse Ox 94 07/09/25 13:23 O2 Del Method Room Air 07/09/25 13:23 O2 Flow Rate 6 07/09/25 13:13 BMI result Body Mass Index 31.5 DS: Data Data Completed and Pending Pending studies at discharge: Pending at discharge 07/09/25 12:40 Surgical [PTH] Routine Labs on day of discharge: Laboratory Results - last 24 hr 07/09/25 07:57 POC Glucose 162 H Discharge Plan Discharge Anticipated Discharge Date/Time: 07/10/25 10:15 Patient Disposition: Home, Self-Care Discharge Diagnosis: Paraesophageal hernia Referrals: Bryan Luz, CRITICAL SYSTEMS TECHNICIAN-BC [Primary Care Provider, Internal Medicine] - 1 Week Discharge Medications: Continued (DME) blood-glucose meter [FreeStyle Lite Meter] Kit See Rx Instructions .ROUTE .MEDSUPPLY Qty: 1 0RF Rx Instructions: Free style Lite device check sugar 2 times a day alprazolam 0.5 mg tablet 0.5 mg PO BID PRN (Reason: anxiety) 30 Days Qty: 60 0RF Rx Instructions: not to be taken with zolpidem (DME) pen needle, diabetic [BD Ultra-Fine Micro Pen Needle] 32 gauge x 1/4 needle See Rx Instructions .ROUTE .MEDSUPPLY Qty: 50 11RF Rx Instructions: Once a week with Ozempic (DME) lancets 28 gauge misc See Rx Instructions topical BID Qty: 100 0RF Rx Instructions: Use to check blood sugar twice daily, fasting and a random blood sugar during the day. (DME) FreeStyle Lite Strips Strip See Rx Instructions Not Applicable BID Qty: 200 1RF Rx Instructions: Use to check blood sugar twice daily, fasting and a random blood sugar during the day. atorvastatin 20 mg tablet 20 mg PO DAILY Qty: 90 1RF ezetimibe 10 mg tablet 10 mg PO DAILY 90 Days Qty: 90 1RF fenofibrate nanocrystallized 145 mg tablet 145 mg PO DAILY 90 Days Qty: 90 1RF alendronate 70 mg tablet 70 mg PO QWEEK Qty: 12 1RF levothyroxine 50 mcg tablet 50 mcg PO DAILY@0600 fluoxetine 40 mg capsule 40 mg PO DAILY quetiapine 200 mg tablet 200 mg PO BEDTIME zolpidem 10 mg tablet 10 mg PO BEDTIME sucralfate 100 mg/mL suspension 10 ml PO BID Qty: 600 2RF Patient Comments: postop meds pantoprazole 40 mg tablet,delayed release (DR/EC) 40 mg PO DAILY Qty: 90 0RF ondansetron 4 mg tablet,disintegrating 4 mg PO Q12H Qty: 20 0RF Patient Comments: postop meds Rx Instructions: Only take one every 12 hours as needed if you have nausea Held semaglutide 1 mg/dose (4 mg/3 mL) pen injector 1 mg subcut QWEEK 30 Days Qty: 3.75 1RF Hold Instructions: Resume on 07/16/25. Patient Comments: PATIENT TAKES EVERY SUNDAY Rx Instructions: for 4 weeks amlodipine 2.5 mg tablet 2.5 mg PO DAILY PRN (Reason: Hypertension) Hold Instructions: Resume on 07/10/25. Only resume according to parameters given by Dr. Serrano Patient Comments: took half dose per instructions metformin 500 mg tablet 500 mg PO DAILY Hold Instructions: Resume on 07/10/25. Only resume if instructed to do so by Dr. Serrano ferrous sulfate 325 mg (65 mg iron) tablet 325 mg PO DAILY Hold Instructions: Resume on 07/16/25. irbesartan 150 mg tablet 150 mg PO DAILY PRN (Reason: Hypertension) Hold Instructions: Resume on 07/10/25. Only resume according to parameters given by Dr. Serrano Patient Comments: pt took 1/[address] billy instructions aspirin 81 mg Capsule 81 mg PO DAILY Hold Instructions: Resume on 07/16/25. Discontinued cyanocobalamin (vitamin B-12) 1,000 mcg/mL solution 1,000 mcg IM Q4W 90 Days Qty: 4 3RF cholecalciferol (vitamin D3) [Vitamin D3] 25 mcg (1,000 unit) Tablet 25 mcg PO DAILY polyethylene glycol 3350 17 gram/dose powder 17 g PO DAILY Qty: 238 0RF Rx Instructions: Mix each measuring cup with 8oz of water, Crystal light, or Gatorade zero, or Propel and do 7 measuring cups on 07/07/25 and another 7 measuring cups on 07/08/25 Stand Alone Forms: Patient Portal Discharge page Print Language: Macedonian Care Plan Goals: resolution of diaphragmatic hernia Health Concerns: diaphragmatic hernia Plan of Treatment: No tub baths, sex or returning to work until discussed at first post op appointment. No alcohol, tobacco or illegal drug use. Continue to use incentive spirometer hourly while awake. Walk in home for 5- 10 minutes every 2 hours during the first week. Wear abdominal binder with activity. Follow all meal plan instructions from your bariatric surgeon. Review bariatric handbook and call with any questions. Discharge Instructions 1. Please call your doctor or come back to the emergency room should any new symptoms arise. 2. Activity: abstain from alcohol,? limited stair climbing, no bending, no driving, no exercise, no illicit substances, no lifting, no sex, no tub bath, no work. 4. Diet: follow your bariatric surgeon's recommendations for advancing diet. 5. Dressing Change/Wound Care: Your incisions are covered with waterproof dress ings. You can shower with these and pat dry. Do not rub over dressings or incisions. If the area is tender, you may apply an ice pack for short intervals (no more than 20 minutes on, followed by at least 20 minutes off). Do not apply heat. Do not use creams, lotions, or topical antibiotics unless instructed to do so by your surgeon. 6. Call your doctor if: - Your temperature exceeds 101.5 F - You experience excessive pain or swelling - You have an unexpected reaction to medication - You have excessive bleeding - You experience continued vomiting/nausea - Your incision begins to separate - Your incision shows signs of infection such as increased redness, swelling, excessive pain, heat, or drainage (light blood or clear fluid is normal) General instructions: No lifting greater than 10 lbs for the next 6 weeks. No driving within 24 hours of taking narcotic pain medications. If you do not move your bowels in the next 2 days, please take milk of magnesia over the counter. Please follow the post op diet and do not advance your diet until instructed by your surgeon or until you are seen in the office in about 1 week. Please walk around your home every hour or two to prevent blood clots from forming in your legs. You do not need to wake from sleeping to walk. Please sleep in a bed or couch to prevent kinking at the hips and knees. Please take your incentive spirometer (your lung global director air and climate change) home with you and use it for the next few days to prevent pneumonias. You may shower; no hot tubs, baths or swimming pools. Please make sure you are consuming 40-60 ounces of total fluids per day. Avoid all carbonation. Please call the office with any questions or concerns such as increasing abdominal pain, fever, chills, shortness of breath, chest pain, leg pain or swelling, or redness or drainage from your incisions. Do not hesitate to contact the office with any questions at . The patient's medical history has been reviewed and they are considered low risk for post op DVT and therefore DVT prophylaxis is not considered necessary. Travel after surgery was reviewed. The patient has not disclosed any travel plans during the first 30 days after surgery and they have been advised that within the first 30 days after surgery any bus, plane, train or car travel over 2 hours in duration is contraindicated due to the possibility of developing blood clots from immobility. Any travel, needs to include periods of ambulation of 10 minutes in duration every 2 hours.? The patient was instructed to discuss any plans for travel during this period with their bariatric surgeon. Assessment: s/p laparoscopic diaphragmatic hernia repair with gastropexy
[2025-07-09] MEDS: Lactated Ringers 1,000 ML 100 ML IVCONT (15:22)
[2025-07-09 15:52] LABS: Glucose, Whole Blood 140 mg/dL (60-115)
[2025-07-09 16:57] LABS: Hematocrit 28.5 % (37.0-47.0); Hemoglobin 9.3 g/dl (12.0-16.0)
[2025-07-09 17:13] LABS: Anion Gap 16 (12-20); Blood Urea Nitrogen 41 mg/dL (9-16); Calcium 8.6 mg/dL (8.4-10.2); Carbon Dioxide 23 mmol/L (22-29); Chloride 103 mmol/L (96-108); Creatinine Clr Calc Pharmacy 18.6; Estimated Glomerular Filt Rate 24; Potassium 4.5 mmol/L (3.3-5.1); Sodium 137 mmol/L (135-145)
[2025-07-09 19:55] LABS: Glucose, Whole Blood 169 mg/dL (60-115)
[2025-07-09] MEDS: 0.9 % Sodium Chloride Flush 3 ML SYRINGE IVFLUSH (20:48)
[2025-07-09 23:50] LABS: Glucose, Whole Blood 160 mg/dL (60-115)
[2025-07-10] MEDS: Lactated Ringers 1,000 ML 100 ML IVCONT (01:46)
[2025-07-10 03:31] LABS: Glucose, Whole Blood 148 mg/dL (60-115)
[2025-07-10 04:00] VITALS: BP 124/64; PULSE 89; RESP 16; TEMP 36.2; O2SAT 99
[2025-07-10 05:37] LABS: MANUAL DIFF FLAG NO
[2025-07-10 05:39] LABS: Hematocrit 25.4 % (37.0-47.0); Hemoglobin 8.3 g/dl (12.0-16.0); Imm Gran Abs Auto 0.03 X10*3/uL (0.00-0.03); Imm Gran Pct Auto 0.5 % (0.0-0.4); Lymphocytes Absolute Auto 0.9 X10*3/uL (1.2-4.9); Mean Corpuscular HGB Conc 32.7 g/dl (31.0-35.0); Mean Corpuscular Hemoglobin 25.5 pg (27.0-33.0); Mean Corpuscular Volume 77.9 fL (80.0-98.0); NRBC Abs Auto 0.000 X10*3/uL (0.0-0.012); NRBC Pct Auto 0.0 /100WBC (0.0-0.2); Platelet Count 282 X10*3/uL (160-400); Red Blood Count 3.26 X10*6/uL (4.20-5.50); White Blood Count 6.2 X10*3/uL (4.8-10.8)
[2025-07-10 06:00] LABS: Anion Gap 13 (12-20); Blood Urea Nitrogen 34 mg/dL (9-16); Calcium 8.2 mg/dL (8.4-10.2); Carbon Dioxide 26 mmol/L (22-29); Chloride 103 mmol/L (96-108); Creatinine Clr Calc Pharmacy 22.6; Estimated Glomerular Filt Rate 30; Potassium 4.6 mmol/L (3.3-5.1); Sodium 137 mmol/L (135-145)
[2025-07-10 08:00] VITALS: BP 140/65; PULSE 75; RESP 16; TEMP 36.4; O2SAT 98
[2025-07-10 08:04] LABS: Glucose, Whole Blood 133 mg/dL (60-115)
--- NOTE | 2025-07-10 08:24 | HO.POSTANES ---
Post Anesthesia Evaluation Post Anesthesia Evaluation Date of Service: 07/10/25 Vital Signs: Vital Signs Temp Pulse Resp BP Pulse Ox O2 Del Method O2 Flow Rate 07/10/25 08:00 97.5 F 75 16 140/65 H 2 L Nasal Cannula 2 07/10/25 04:00 97.1 F 89 16 124/64 99 Nasal Cannula 2 07/09/25 23:49 97 F 88 18 109/56 L 96 Nasal Cannula 2 Anesthesia: General Endotracheal-GETA Mental Status: Awake Pain Control: Satisfactory Nausea/Vomiting: None Hydration: Adequate Anesthesia-Related Issues: No Anes. Related Issues
--- NOTE | 2025-07-10 10:52 | MHC.CM.PN ---
PT DCD HOME SELF CARE
== END 2025-07-10 11:23 | disposition home or self-care (01) | DRG 328 ==
LOC: HO.SSSA 07:58 → HO.S3 13:19
PROVIDERS: Admitting Provider Physician Assistant Surgical; PCP Nurse Practitioner Family; Visit Provider Surgery
PROC: 0BQT4ZZ Repair Diaphragm, Percutaneous Endoscopic Approach (ICD-10-PCS; principal; 2025-07-09 10:20)
DX: K44.0 Diaphragmatic hernia with obstruction, without gangrene (principal); K66.0 Peritoneal adhesions (postprocedural) (postinfection); Z79.82 Long term (current) use of aspirin; Z79.84 Long term (current) use of oral hypoglycemic drugs; Z79.890 Hormone replacement therapy; Z79.899 Other long term (current) drug therapy
CPT/HCPCS: 36415; 80048; 80053; 80061; 82947; 83036; 83525; 84439; 84443; 85014; 85018; 85025; 85610; 85730; 86140; 86850; 86900; 86901; 88304; A4649; C9145; J0131; J0690; J1100; J1171; J1308; J2003; J2405; J2704; J2795; J3010; J7120

== ENCOUNTER → 2025-07-09 07:50 | Outpatient (BNV) | payer OTHER, SELFPAY | PROVIDERS: Admitting Provider Physician Assistant Surgical; PCP Nurse Practitioner Family; Visit Provider Surgery | DX: K44.0 Diaphragmatic hernia with obstruction, without gangrene (principal) | CPT/HCPCS: 43281 ==

== ENCOUNTER 2025-07-14 12:32 | Outpatient (AMB) | payer OTHER, SELFPAY ==
--- NOTE | 2025-07-14 15:06 | A.OFFWM_ITS ---
Intake Intake Visit Reasons: TV PO Diaphragmatic Hernia 07/09/25 Allergies No Known Allergies (No Known Allergies*) Allergy (Verified 07/03/25 11:26) PFSH Medical History (Updated 07/11/25 @ 00:01 by Background Daemon) Hyperlipidemia Anxiety Depression Abnormal echocardiogram Vitamin B 12 deficiency Elevated cholesterol GERD (gastroesophageal reflux disease) CKD (chronic kidney disease) HTN (hypertension) Decreased renal function Multinodular thyroid Hypothyroidism Vitamin D deficiency T2DM (type 2 diabetes mellitus) Osteoporosis Surgical History (Updated 07/11/25 @ 00:01 by Background Daemon) History of esophagogastroduodenoscopy (EGD) H/O knee surgery Hx of thyroidectomy History of surgery on wrist Hx of cholecystectomy Family History Father Emphysema of lung Mother Myocardial infarction Hypertension Cardiovascular disease Social History Household Members: Spouse Housing: Apartment Are you a primary health care specialist to a significant other at home: No Do you presently have visiting nurse or other home services: Yes Comment: tolerable Patient Tobacco Use Status: Never used Tobacco e-Cigarette/Vaping Use: Never Used service: No Current occupational status: retired Cognitive needs: No Hearing needs: Yes Vision needs: Yes Behavioral Health Assessment Weight Management Therapy Therapy Notes Details Subjective: Client attended a behavioral health appointment by phone at the request of Dr. Draper following hernia repair surgery on 07/09/2025. She reports difficulty adhering to her post-surgical meal plan, noting increased anxiety and uncertainty about resuming her prescribed anxiety medication (Xanax 0.5 mg). She was unsure if she could take the medication post-operatively and has not taken it since surgery. Client expressed frustration with the liquid diet, stating she was not fully prepared despite receiving preoperative instructions and having followed a liquid plan for one week prior to surgery. She denies physical hunger but describes persistent food thoughts and cravings, attributing these to her enjoyment of food and discomfort with imposed dietary restrictions. She feels the rules are externally imposed, which increases her sense of restriction. Client also reports increased tension with her , who is supportive but acts from a place of fear, leading her to feel less supported. She continues to receive weekly counseling and plans to see her therapist this week. She declined a follow-up visit at this time. Objective: -A guided emotional check-in was conduct ed to assess her current functioning, recovery, and mood. -Psychoeducation was provided regarding the emotional and psychological adjustments common after surgery, especially with dietary restrictions. -The session focused on distinguishing b etween physical hunger and food-related thoughts or cravings, exploring underlying reasons, and developing strategies to address these experiences. -Mindfulness-based coping skills were re viewed, including walks, deep breathing, meditation, engaging in enjoyable activities, and connecting with loved ones. -The importance of adhering to medical i nstructions, including pacing of fluid intake and meal plan compliance, was emphasized to prevent complications. -Client was advised to consult her provi nile regarding resuming her anxiety medication and to monitor for any signs of benzodiazepine dependence. Assessment/Response: * Mental status: Client was alert and oriented x4. Mood was anxious and frustrated; affect congruent. Thought process was logical and coherent. No evidence of psychosis or shelbie. Insight and judgment were intact. * Risk reported/identified: Client denied suicidal or homicidal ideation, intent, or plan. No self-harm behaviors reported. No acute safety concerns identified. Assessment & Plan Assessment & Plan (1) Anxiety: Code(s): F41.9 - Anxiety disorder, unspecified Plan Client declined a follow-up visit at this time. She will continue with weekly counseling and was encouraged to reach out if additional support is needed. Advised to clarify medication use with her provider and to continue practicing coping strategies discussed in this session. Telehealth Telehealth Telehealth Platform: [facility] Location of provider rendering services: other (Home office. [place], [place]) Location of patient: address on file Patient Identification confirmed using: Name, : Yes Telehealth method: voice only Patient verbally consented to treatment: Yes Patient verbally consented to billing insurance company: Yes Patient informed of any privacy concerns related to visit: Yes Minutes spent on Phone/Video with Pt.: 45 Coding Level of Care Code New Pt Tele Psytx 45 mins ([id number]) Patient Type New Diagnoses Anxiety F41.9 Time Spent (min) 45 Comment start time: 10:30am - End time: 11:15am
--- OUTSIDE RECORDS SUMMARY | 2025-07-14 15:47 | XMS_ITS | Clinical Summary ---
Author Organization [facility] ity Address [address] [place] [address] Care Team Providers Care Milliner Helper Name Role Phone Unavailable Primary Care Provider [...]
--- OUTSIDE RECORDS SUMMARY | 2025-07-14 15:47 | XMS_ITS | Encounter Summary ---
Author Organization [employer] Address [address] [place] [address] Care Team Providers Care Cobol Programmer Name Role Phone Unavailable Primary Care Provider Unavailabl e Encounter Details Date Type Department Care Team (Latest Contact Info) Description 09/29/2019 Abstract [facility] CONVERSIONS Dental, Provider, DDS Social History Tobacco [...]
--- OUTSIDE RECORDS SUMMARY | 2025-07-14 15:47 | XMS_ITS | Clinical Summary ---
Author Organization [email or web address] Address [address] [place] [address] Care Team Providers Care Operating Room Aide Name Role Phone Unavailable Primary Care Provider [...] patient's age to complete this topic Insurance [facility] OPTIONS (O D-SNP) MICHAEL ALONSO [id number]
== END 2025-07-14 15:11 | disposition home or self-care (01) ==
LOC: HO.HBST 12:32
PROVIDERS: PCP Nurse Practitioner Family; Visit Provider Counselor Mental Health
DX: F41.9 Anxiety disorder, unspecified (principal)
CPT/HCPCS: 90834

== ENCOUNTER 2025-07-15 16:04 | Outpatient (AMB) | payer OTHER, SELFPAY ==
--- NOTE | 2025-07-15 16:20 | A.OFFVIS_ITS ---
VS Expanded 07/15/25 16:33 BP 127/58 L Blood Pressure Location Rt brachial Blood Pressure Position Sitting Pulse 113 H Pulse Source Pulse Oximeter Temp 97.2 F Temperature Source Temporal Artery Scan Pulse Oximetry 113 H Oxygen Delivery Method Room Air Height 4 ft 9 in Weight 140 lb 6.4 oz BMI 30.4 Body Fat % 41.5 Body Fat Mass 58.2 Fat Free Mass 82.0 Visceral Fat Rating 0 Body Water % 40.9 Body Water Mass 57.4 Muscle Mass/Score 77.8 Basal Metabolic Rate/Score 1,149 Intake Visit Reasons: OV PO Diaphragmatic Hernia 07/09/25 Stationary Engineer Apprentice Required: Yes Stationary Engineer Apprentice Name: Phong [id number] Information Interpreted: clinical only Allergies No Known Allergies (No Known Allergies*) Allergy (Verified 07/15/25 16:35) Medication List - Last Reconciled 07/15/25 by MICHAEL Erazo alendronate 70 mg PO QWEEK alprazolam 0.5 mg PO BID PRN 30 days amlodipine 2.5 mg PO DAILY PRN Held on 07/10/25. Instructions: Resume on 07/10/25. Only resume according to parameters given by Dr. Serrano aspirin 81 mg PO DAILY Held on 07/10/25. Instructions: Resume on 07/16/25. atorvastatin 20 mg PO DAILY blood-glucose meter (FreeStyle Lite Meter kit) Free style Lite device check sugar 2 times a day ezetimibe 10 mg PO DAILY 90 days fenofibrate nanocrystallized 145 mg PO DAILY 90 days ferrous sulfate 325 mg PO DAILY Held on 07/10/25. Instructions: Resume on 07/16/25. fluoxetine 40 mg PO DAILY FreeStyle Lite Strips (blood sugar diagnostic) Use to check blood sugar twice daily, fasting and a random blood sugar during the day. NS irbesartan 150 mg PO DAILY PRN Held on 07/10/25. Instructions: Resume on 07/10/25. Only resume according to parameters given by Dr. Serrano lancets Use to check blood sugar twice daily, fasting and a random blood sugar during the day. levothyroxine 50 mcg PO DAILY@0600 metformin 500 mg PO DAILY Held on 07/10/25. Instructions: Resume on 07/10/25. Only resume if instructed to do so by Dr. Raftopoulos ondansetron 4 mg PO Q12H pantoprazole 40 mg PO DAILY pen needle, diabetic (BD Ultra-Fine Micro Pen Needle) Once a week with Ozempic quetiapine 200 mg PO BEDTIME semaglutide 1 mg (0.75 mL) subcut QWEEK 30 days Held on 07/10/25. Instructions: Resume on 07/16/25. sucralfate 10 mL PO BID zolpidem 10 mg PO BEDTIME HPI Comments Details: Pt is 6d s/p lap HHR with gastropexy 07/09/2025. Feeling well. No complaints of pain or nausea. She reported some shoulder pain while in hospital. This is now improved. She is feeling very frustrated by her limited nutrition plan, reports her mental health has suffered greatly, but understands why meal plan is so strict. [facility] Medical History (Updated 07/11/25 @ 00:01 by Terri Renee) Hyperlipidemia Anxiety Depression Abnormal echocardiogram Vitamin B 12 deficiency Elevated cholesterol GERD (gastroesophageal reflux disease) CKD (chronic kidney disease) HTN (hypertension) Decreased renal function Multinodular thyroid Hypothyroidism Vitamin D deficiency T2DM (type 2 diabetes mellitus) Osteoporosis Surgical History Hx of hernia repair History of esophagogastroduodenoscopy (EGD) H/O knee surgery Hx of thyroidectomy History of surgery on wrist Hx of cholecystectomy Family History Father Emphysema of lung Mother Myocardial infarction Hypertension Cardiovascular disease Social History Household Members: Spouse Housing: Apartment Are you a primary manager critical care unit to a significant other at home: No Do you presently have visiting nurse or other home services: Yes Comment: tolerable Patient Tobacco Use Status: Never used Tobacco e-Cigarette/Vaping Use: Never Used service: No Current occupational status: retired Cognitive needs: No Hearing needs: Yes Vision needs: Yes Physical Exam Vital Signs: Last Vital Signs Temp 97.2 F 07/15/25 16:33 Pulse 113 H 07/15/25 16:33 BP 127/58 L 07/15/25 16:33 Pulse Ox 113 H 07/15/25 16:33 Oxygen Delivery Method Room Air 07/15/25 16:33 BMI result Body Mass Index 30.4 Const General: cooperative, comfortable and no acute distress Orientation/consciousness: patient oriented x3 GI Other: soft, nontender, nondistended, steri-strips c/d/i (2 additional ports had been placed so 7 total) Neuro General: patient oriented x3 Assessment & Plan Assessment & Plan (1) S/P repair of paraesophageal hernia: Code(s): Z98.890 - Other specified postprocedural states; Z87.19 - Personal history of other diseases of the digestive system Category: Surgical Plan May shower tomorrow but no bath or submersion of abdomen in water. May start exercise tomorrow.? No abdominal exercises x 6 weeks. Abdominal binder for the next 2 weeks with activity or exercise. Continue meal plan per Dr Khan until next f/u in 5 weeks. Reviewed pantoprazole and carafate dosing. Reminded of the pace of drinking 2 mL/min or 1oz per 15 min. We had a long discussion about the importance of following the meal plan and why it is limited at this point. We discussed getting the appropriate amount of protein intake for healing and recovery, as well as avoiding stressing/stretching the repair with off-plan food or nutrition items. She is frustrated but states she understands the reasoning behind her nutrition plan. I emphasized that this plan was not forever and each week should allow her more options. RTC 5 weeks.
[2025-07-15 16:33] VITALS: BP 127/58; PULSE 113; TEMP 36.2; O2SAT 113; BMI 30.4
--- OUTSIDE RECORDS SUMMARY | 2025-07-15 20:06 | XMS_ITS | Clinical Summary ---
Author Organization [employer] Address [address] [place] [address] Care Team Providers Care Third Loader Name Role Phone Unavailable Primary Care Provider [...] patient's age to complete this topic Insurance [facility] OPTIONS (O D-SNP) MICHAEL ALONSO [id number]
--- OUTSIDE RECORDS SUMMARY | 2025-07-15 20:06 | XMS_ITS | Encounter Summary ---
Author Organization [employer] Address [address] [facility] [address] [place] [address] Care Team Providers Care Machine Setup Operator Name Role Phone Unavailable Primary Care Provider Unavailabl e Encounter Details Date Type Department Care Team (Latest Contact Info) Description 09/29/2019 Abstract [facility] CONVERSIONS Dental, Provider, DDS Social History Tobacco [...]
--- OUTSIDE RECORDS SUMMARY | 2025-07-15 20:06 | XMS_ITS | Clinical Summary ---
Author Organization [facility] ity Address [address] [place] [address] Care Team Providers Care Wood Floor Refinisher Name Role Phone Unavailable Primary Care Provider [...]
== END 2025-07-15 21:41 | disposition home or self-care (01) ==
LOC: HO.HBS 16:05
PROVIDERS: PCP Nurse Practitioner Family; Visit Provider Physician Assistant Surgical
DX: E66.9 Obesity, unspecified (principal); Z68.30 Body mass index [BMI] 30.0-30.9, adult; Z98.890 Other specified postprocedural states; Z87.19 Personal history of other diseases of the digestive system
CPT/HCPCS: 99024

== ENCOUNTER → 2025-07-15 16:04 | Outpatient (BNVA) | payer OTHER, SELFPAY | PROVIDERS: PCP Nurse Practitioner Family; Visit Provider Physician Assistant Surgical | DX: Z48.815 Encounter for surgical aftercare following surgery on the digestive system (principal); Z98.890 Other specified postprocedural states; Z87.19 Personal history of other diseases of the digestive system | CPT/HCPCS: 99212 ==

== ENCOUNTER 2025-07-23 11:14 | Outpatient (AMB) | payer OTHER, SELFPAY ==
[2025-07-23 10:42] VITALS: BP 120/72; PULSE 102; RESP 16; TEMP 36.6; O2SAT 97; BMI 31.2
--- NOTE | 2025-07-23 10:42 | A.OFFPC_ITS ---
Vital Signs 07/23/25 10:42 Height 4 ft 9 in Weight 144 lb BMI 31.2 BP 120/72 Blood Pressure Location Rt brachial Position Sitting Respiration 16 Pulse 102 H Pulse Source Pulse Oximeter Temp 97.8 F Temp Source Oral Pulse Oximetry (%) 97 Intake Visit Reasons: 4 MON F/U- A1C needed Contracting Analyst Required: No Accompanied by: Self / Same As Patient Allergies No Known Allergies (No Known Allergies*) Allergy (Verified 07/23/25 11:46) Medication List - Last Reconciled 07/23/25 by Bryan Luz, [facility]- alendronate 70 mg PO QWEEK alprazolam 0.5 mg PO BID PRN 30 days amlodipine 2.5 mg PO DAILY PRN Held on 07/10/25. Instructions: Resume on 07/10/25. Only resume according to parameters given by Dr. Serrano aspirin 81 mg PO DAILY Held on 07/10/25. Instructions: Resume on 07/16/25. atorvastatin 20 mg PO DAILY blood-glucose meter (FreeStyle Lite Meter kit) Free style Lite device check sugar 2 times a day ezetimibe 10 mg PO DAILY 90 days fenofibrate nanocrystallized 145 mg PO DAILY 90 days ferrous sulfate 325 mg PO DAILY Held on 07/10/25. Instructions: Resume on 07/16/25. fluoxetine 40 mg PO DAILY FreeStyle Lite Strips (blood sugar diagnostic) Use to check blood sugar twice daily, fasting and a random blood sugar during the day. NS irbesartan 150 mg PO DAILY PRN Held on 07/10/25. Instructions: Resume on 07/10/25. Only resume according to parameters given by Dr. Serrano lancets Use to check blood sugar twice daily, fasting and a random blood sugar during the day. levothyroxine 50 mcg PO DAILY@0600 metformin 500 mg PO DAILY Held on 07/10/25. Instructions: Resume on 07/10/25. Only resume if instructed to do so by Dr. Serrano ondansetron 4 mg PO Q12H pantoprazole 40 mg PO DAILY pen needle, diabetic (BD Ultra-Fine Micro Pen Needle) Once a week with Ozempic quetiapine 200 mg PO BEDTIME semaglutide 1 mg (0.75 mL) subcut QWEEK 30 days Held on 07/10/25. Instructions: Resume on 07/16/25. sucralfate 10 mL PO BID zolpidem 10 mg PO BEDTIME Tobacco use date assessed: 07/23/25 Fall risk assessment: No Falls in past year Last assessed Fall Risk: 07/23/25 Dental Screening Dental Screen Date: 07/23/25 Did you have a dental visit in the last 12 months?: No Did you have a dental problem in the last 6 months where you did not have access to dental care?: No Was dental information given to patient?: Patient has dentist HPI 4 MON F/U- A1C needed HPI Details Chief Complaint The patient is here for a post-operative follow-up visit after a recent repair of an esophageal hernia. History of Present Illness The patient is a 74-year-old female presenting for a post-operative follow-up visit. She is status post repair of an esophageal hernia, which was performed on 07/09/2025. The patient is on a liquid diet, which she does not like, but she is otherwise doing quite well. Her HbA1c was recently 5.7. She also reports that her eye exam is up to date. NOTE: certain meds are on hold, BP meds are on range basis (surgeon requested) Social History - Diet: Patient is currently on a liquid diet post-surgery. Health Maintenance - Her eye exam is up to date. - Her HbA1c was 5.7. Review of Systems - Constitutional: Denies fevers or chill s. - Gastrointestinal: Denies nausea, vomit ing, or changes in bowel habits. tolerating diet - Integumentary: Denies drainage from an y laparoscopic sites. Physical Exam General: Cooperative, healthy appearing, comfortable, no acute distress and well developed Orientation: Patient oriented x3 Limitations: No limitations Head: Normal to inspection Ears: Hearing grossly normal bilaterally Nose: Normal external nose present Face and sinus: Normal facial exam Eyes: Appearance normal, both eyes and all related structures. Patient reports her eye exam is up to date. Neck: Normal visual inspection and Yes full ROM Respiratory: Normal respiratory effort and able to speak in complete sentences. Clear to auscultation bilaterally Cardiovascular: Regular rate and rhythm. Normal S1 and S2 GI: Normal to inspection. Minimal tenderness with palpation of abdomen. No signs of infection. Soft to palpation and nontender Skin: No rashes or lesions noted. Lap sites to her upper abdomen without any signs of infection, healing well, scabbed throughout. Neuro: Patient oriented x3 Extremities: Normal to inspection. Feet were intact. Positive sensation, use of monofilament. Results - Labs: Recent HbA1c was 5.7. Plan 1. Follow-Up After Esophageal Hernia Rep air The patient is recovering well from her surgery, with surgical sites healing appropriately and no signs of infection. She was counseled on the importance of adhering to the liquid diet recommended by her surgeon to prevent severe complications, and she reported understanding. She will continue follow-up with the surgical team. 2. Diabetes Mellitus The patient's diabetes appears well-controlled, with a recent HbA1c of 5.7. Repeat labs will be obtained this week or early next week for continued monitoring. Her eye exam is up to date. Discussion Notes I discussed the patient's post-operative progress with her. I emphasized the importance of staying on her liquid diet as recommended by her surgeon to avoid the risk of severe complications that could occur if she started eating solid food prematurely. The patient acknowledged understanding this instruction. I advised her to have labs drawn this week or next and to continue her follow-up care with her surgeon. Patient Instructions - Continue to follow the liquid diet stacie t your surgeon recommended. - Get your blood work done this week or early next week. - Make sure you go to your follow-up adair ointment with your surgeon. - Contact the office if you have any fev er, chills, drainage from your incision sites, nausea, or vomiting. PFSH Medical History Hyperlipidemia Anxiety Depression Abnormal echocardiogram Vitamin B 12 deficiency Elevated cholesterol GERD (gastroesophageal reflux disease) CKD (chronic kidney disease) HTN (hypertension) Decreased renal function Multinodular thyroid Hypothyroidism Vitamin D deficiency T2DM (type 2 diabetes mellitus) Osteoporosis Surgical History Hx of hernia repair History of esophagogastroduodenoscopy (EGD) H/O knee surgery Hx of thyroidectomy History of surgery on wrist Hx of cholecystectomy Family History Father Emphysema of lung Mother Myocardial infarction Hypertension Cardiovascular disease Social History Household Members: Spouse Housing: Apartment Are you a primary customer care consultant to a significant other at home: No Do you presently have visiting nurse or other home services: Yes Comment: tolerable Patient Tobacco Use Status: Never used Tobacco e-Cigarette/Vaping Use: Never Used service: No Current occupational status: retired Cognitive needs: No Hearing needs: Yes Vision needs: Yes Questionnaire PHQ-9 Over the last 2 weeks, how often have you been bothered by any of the following problems? 1. Little interest or pleasure in doing things: not at all 2. Feeling down, depressed, or hopeless: not at all 3. Trouble falling or staying asleep, or sleeping too much: not at all 4. Feeling tired or having little energy: not at all 5. Poor appetite or overeating: not at all 6. Feeling bad about yourself - or that you are a failure or have let yourself or your family down: not at all 7. Trouble concentrating on things, such as reading the newspaper or watching television: not at all 8. Moving or speaking so slowly that other people could have noticed. Or the opposite - being so fidgety or restless that you have been moving around a lot more than usual: not at all 9. Thoughts that you would be better off or of hurting yourself in some way: not at all Total score: 0 Depression Screening Interpretation: Negative Depression Screening Done: Yes 36194 - PHQ-9 Billing: Patient declined-do not bill Source: Developed by Drs. Wolf Ortez, Otilia Rushing, Jeramie Mccracken and colleagues, with an educational rose from [employer]. Thrive Questionnaire Date Thrive assessed: 07/16/25 I am a: Patient What is your living situation today?: I have a steady place to live Within the past 12 months, did the food you bought not last and you didn't have the money to get more?: I choose not to answer this question Within the past 12 months, did you worry whether your food would run out before you got money to buy more?: I choose not to answer this question Do you have trouble paying for medicines?: No Do you have trouble getting transportation to medical appointments?: No Do you have trouble paying your heating and electricity bill?: No Do you have trouble taking care of your child, family member or friend?: I choose not to answer this question Do you have trouble with day-to-day activities such as bathing, preparing meals, shopping, managing finances, etc.?: No Are you currently unemployed and looking for a job?: No Are you interested in more education?: I choose not to answer this question THRIVE Score: 0 PATRICK-7 AMB Questionnaire PATRICK-7 Date PATRICK - 7 assessed: 07/23/25 Feeling nervous, anxious, or on edge: 0 = Not at all Not being able to stop or control worryin = Not at all Worrying too much about different things: 0 = Not at all Trouble relaxin = Not at all Being so restless that it is hard to sit still: 0 = Not at all Becoming easily annoyed or irritable: 0 = Not at all Feeling afraid as if something awful might happen: 0 = Not at all Total PATRICK-7 score (0-4 normal; 5-9 mild; 10-14 moderate; 15-21 severe): 0 Source: Developed by Drs. Wolf Ortez, Otilia Rushing, Jeramie Mccracken and colleagues, with an educational rose from [employer]. PATRICK-7 Assessment Billing PATRICK-7 Assessment Tool: PATRICK-7 Assessment 32842 Physical exam (Primary Care) Vital Signs: Last Vital Signs Temp 97.8 F 07/23/25 10:42 Pulse 102 H 07/23/25 10:42 Resp 16 07/23/25 10:42 BP 120/72 07/23/25 10:42 Pulse Ox 97 07/23/25 10:42 BMI result Body Mass Index 31.2 Tobacco/Smoking Status: Tobacco use Status Tobacco use date assessed 07/23/25 07/23/25 10:44 Patient Tobacco Use Status Never used Tobacco 07/23/25 10:44 e-Cigarette/Vaping Use Never Used 07/23/25 10:44 PHQ-9: PHQ-9 Score PHQ-9: Total score 0 07/23/25 11:28 Depression Screening Interpretation: Negative Thrive Assessment: Date of Thrive Assessment Date Thrive assessed 07/16/25 07/23/25 10:44 Results AMB Hemoglobin A1c AMB Hemoglobin A1c 5.7 % Last Edit by Haley Nash MA on 07/23/25 11:48 Coding Level of Care Code Est Pt Level 3 (21056) Diagnoses S/P repair of paraesophageal hernia Z98.890; Z87.19 Type 2 diabetes mellitus with hyperglycemia, without long-term current use of insulin E11.65 Diabetes mellitus terminal press operator insulin use: without usp use Diabetes mellitus complication status: with hyperglycemia Additional Codes PATRICK-7 Assessment Billing - PATRICK-7 Assessment Tool: PATRICK-7 Assessment 22348 ([id number]) Assessment & Plan Assessment & Plan (1) S/P repair of paraesophageal hernia: Code(s): Z98.890 - Other specified postprocedural states; Z87.19 - Personal history of other diseases of the digestive system Category: Surgical (2) T2DM (type 2 diabetes mellitus): Code(s): E11.9 - Type 2 diabetes mellitus without complications Category: Medical Qualifiers: Diabetes mellitus terminal press operator insulin use: without terminal press operator use Diabetes mellitus complication status: with hyperglycemia Qualified Code(s): E11.65 - Type 2 diabetes mellitus with hyperglycemia Plan . Orders: Orders Microalbumin, Random (w Creat) Today E11.65 - Type 2 diabetes mellitus with hyperglycemia, Z87.19 - Personal history of other diseases of the digestive system, Z98.890 - Other specified postprocedural states AMB Hemoglobin A1c Today E11.65 - Type 2 diabetes mellitus with hyperglycemia Complete Blood Count Auto Diff Today Z87.19 - Personal history of other diseases of the digestive system, Z98.890 - Other specified postprocedural states Comprehensive Met. Panel Today Z87.19 - Personal history of other diseases of the digestive system, Z98.890 - Other specified postprocedural states TSH reflex Free T4 Today E11.65 - Type 2 diabetes mellitus with hyperglycemia, Z87.19 - Personal history of other diseases of the digestive system, Z98.890 - Other specified postprocedural states UA CC w/rflx Micro + Cult Today E11.65 - Type 2 diabetes mellitus with hyperglycemia, Z87.19 - Personal history of other diseases of the digestive system, Z98.890 - Other specified postprocedural states
--- OUTSIDE RECORDS SUMMARY | 2025-07-23 14:01 | XMS_ITS | Encounter Summary ---
Author Organization [employer] Address [address] [facility] [address] [place] [address] Care Team Providers Care Water Softener Servicer Name Role Phone Unavailable Primary Care Provider Unavailabl e Encounter Details Date Type Department Care Team (Latest Contact Info) Description 09/29/2019 Abstract [facility] CONVERSIONS Dental, Provider, DDS Social History [...]
--- OUTSIDE RECORDS SUMMARY | 2025-07-23 14:01 | XMS_ITS | Clinical Summary ---
Author Organization [facility] ity Address [id number] [place] [id number] Care Team Providers Care Manager Camp Name Role Phone Unavailable Primary Care Provider [...]
--- OUTSIDE RECORDS SUMMARY | 2025-07-23 14:01 | XMS_ITS | Clinical Summary ---
Author Organization [employer] Address [address] [facility] [address] [place] [address] Care Team Providers Care Tension Worker Name Role Phone Unavailable Primary Care [...] topic Insurance [facility] LONGTERM OPTIONS (O D-SNP) MICHAEL ALONSO [id number]
== END 2025-07-23 12:03 | disposition home or self-care (01) ==
LOC: HO.HMCC 11:16
PROVIDERS: PCP Nurse Practitioner Family; Visit Provider Nurse Practitioner Family
DX: Z98.890 Other specified postprocedural states (principal); Z87.19 Personal history of other diseases of the digestive system; E11.65 Type 2 diabetes mellitus with hyperglycemia

== ENCOUNTER → 2025-07-23 11:14 | Outpatient (BNVA) | payer OTHER, SELFPAY | PROVIDERS: PCP Nurse Practitioner Family; Visit Provider Nurse Practitioner Family | DX: Z09 Encounter for follow-up examination after completed treatment for conditions other than malignant neoplasm (principal); E11.65 Type 2 diabetes mellitus with hyperglycemia; Z87.19 Personal history of other diseases of the digestive system; Z98.890 Other specified postprocedural states; Z13.31 Encounter for screening for depression | CPT/HCPCS: 83036; 96127; 99212 ==

== ENCOUNTER 2025-08-04 09:35 | Outpatient (REF) | payer OTHER, SELFPAY ==
[2025-08-04 13:31] LABS: MANUAL DIFF FLAG NO
[2025-08-04 13:41] LABS: Hematocrit 31.8 % (37.0-47.0); Hemoglobin 10.1 g/dl (12.0-16.0); Imm Gran Abs Auto 0.01 X10*3/uL (0.00-0.03); Imm Gran Pct Auto 0.1 % (0.0-0.4); Lymphocytes Absolute Auto 2.2 X10*3/uL (1.2-4.9); Mean Corpuscular HGB Conc 31.8 g/dl (31.0-35.0); Mean Corpuscular Hemoglobin 25.2 pg (27.0-33.0); Mean Corpuscular Volume 79.3 fL (80.0-98.0); NRBC Abs Auto 0.000 X10*3/uL (0.0-0.012); NRBC Pct Auto 0.0 /100WBC (0.0-0.2); Platelet Count 354 X10*3/uL (160-400); Red Blood Count 4.01 X10*6/uL (4.20-5.50); White Blood Count 6.9 X10*3/uL (4.8-10.8)
[2025-08-04 14:17] LABS: Alanine Aminotransferase 14 U/L (0-31); Albumin Level 4.4 g/dL (3.5-5.0); Alkaline Phosphatase 49 U/L (39-117); Anion Gap 15 (12-20); Aspartate Amino Transferase 24 U/L (5-31); Blood Urea Nitrogen 22 mg/dL (9-16); Calcium 9.3 mg/dL (8.4-10.2); Carbon Dioxide 22 mmol/L (22-29); Chloride 108 mmol/L (96-108); Cholesterol 149 mg/dL (<200); Estimated Glomerular Filt Rate 41; HDL Cholesterol 66 mg/dL (>40); Potassium 3.9 mmol/L (3.3-5.1); Sodium 141 mmol/L (135-145); Total Protein 7.2 g/dL (6.5-8.0); Triglycerides 97 mg/dL (<150)
== END 2025-08-04 09:36 | disposition home or self-care (01) ==
LOC: HO.HMGCLDS 09:35
PROVIDERS: PCP Nurse Practitioner Family; Visit Provider Nurse Practitioner Family
DX: Z13.29 Encounter for screening for other suspected endocrine disorder (principal); E11.65 Type 2 diabetes mellitus with hyperglycemia; Z98.890 Other specified postprocedural states; Z87.19 Personal history of other diseases of the digestive system
CPT/HCPCS: 36415; 80053; 80061; 84443; 85025

== ENCOUNTER 2025-08-06 09:30 | Outpatient (REF) | payer OTHER, SELFPAY ==
[2025-08-06 13:36] LABS: Appearance Urine Clear; Glucose Urine UA Negative (Negative); PH 6.5 (5.0-9.0); Specific Gravity - Urine 1.020 (1.005-1.025)
--- OUTSIDE RECORDS SUMMARY | 2025-08-06 13:46 | XMS_ITS | Encounter Summary ---
Author Organization [employer] Address [address] [facility] [address]t [place] [address] Care Team Providers Care Operations Lieutenant Name Role Phone Unavailable Primary Care Provider Unavailabl e Encounter Details Date Type Department Care Team (Latest Contact Info) Description 09/29/2019 Abstract [facility] CONVERSIONS Dental, Provider, DDS Social History [...]
--- OUTSIDE RECORDS SUMMARY | 2025-08-06 13:46 | XMS_ITS | Clinical Summary ---
Author Organization [email or web address] Address [address] [facility] [address] [place] [address] Care Team Providers Care Evs Manager Name Role Phone Unavailable Primary Care [...] topic Insurance [facility] SHELTER OPTIONS (O D-SNP) MICHAEL ALONSO [id number]
== END 2025-08-06 09:31 | disposition home or self-care (01) ==
LOC: HO.HMGCLNP 09:30
PROVIDERS: PCP Nurse Practitioner Family; Visit Provider Nurse Practitioner Family
DX: E11.65 Type 2 diabetes mellitus with hyperglycemia (principal); Z98.890 Other specified postprocedural states; Z87.19 Personal history of other diseases of the digestive system
CPT/HCPCS: 81003; 82043; 82570

== ENCOUNTER 2025-08-19 10:44 | Outpatient (AMB) | payer OTHER, SELFPAY ==
--- NOTE | 2025-08-19 10:49 | MHC.OFFVISWM ---
VS Expanded 08/19/25 11:01 BP 109/58 L Blood Pressure Location Rt brachial Blood Pressure Position Sitting Pulse 109 H Pulse Source Pulse Oximeter Temp 97.8 F Temperature Source Temporal Artery Scan Pulse Oximetry 96 Oxygen Delivery Method Room Air Height 4 ft 9 in Weight 142 lb 6 oz BMI 30.8 Body Fat % 30.9 Body Fat Mass 55.8 Fat Free Mass 86.6 Visceral Fat Rating 12.0 Body Water % 42.6 Body Water Mass 60.6 Muscle Mass/Score 82.2 Basal Metabolic Rate/Score 1,197 Intake Visit Reasons: OV PO Diaphragmatic Hernia 07/09/25 Okay per [place] Mixer Operator Raw Salt Required: Yes Mixer Operator Raw Salt Services: Mixer Operator Raw Salt Offered & Declined Accompanied by: Spouse Allergies No Known Allergies (No Known Allergies*) Allergy (Verified 08/19/25 10:54) Medication List - Last Reconciled 08/19/25 by MICHAEL Erazo alendronate 70 mg PO QWEEK alprazolam 0.5 mg PO BID PRN 30 days amlodipine 2.5 mg PO DAILY PRN Held on 07/10/25. Instructions: Resume on 07/10/25. Only resume according to parameters given by Dr. Serrano aspirin 81 mg PO DAILY Held on 07/10/25. Instructions: Resume on 07/16/25. atorvastatin 20 mg PO DAILY blood-glucose meter (FreeStyle Lite Meter kit) Free style Lite device check sugar 2 times a day ezetimibe 10 mg PO DAILY 90 days fenofibrate nanocrystallized 145 mg PO DAILY 90 days ferrous sulfate 325 mg PO DAILY Held on 07/10/25. Instructions: Resume on 07/16/25. fluoxetine 40 mg PO DAILY FreeStyle Lite Strips (blood sugar diagnostic) Use to check blood sugar twice daily, fasting and a random blood sugar during the day. NS irbesartan 150 mg PO DAILY PRN Held on 07/10/25. Instructions: Resume on 07/10/25. Only resume according to parameters given by Dr. Serrano lancets Use to check blood sugar twice daily, fasting and a random blood sugar during the day. levothyroxine 50 mcg PO DAILY@0600 metformin 500 mg PO DAILY Held on 07/10/25. Instructions: Resume on 07/10/25. Only resume if instructed to do so by Dr. Raftopoulos ondansetron 4 mg PO Q12H PRN pantoprazole 40 mg PO DAILY pen needle, diabetic (BD Ultra-Fine Micro Pen Needle) Once a week with Ozempic quetiapine 200 mg PO BEDTIME semaglutide 1 mg (0.75 mL) subcut QWEEK 30 days Held on 07/10/25. Instructions: Resume on 07/16/25. sucralfate 10 mL PO BID zolpidem 10 mg PO BEDTIME HPI Comments Details: This?is a?74?yo F who is s/p lap hiatal hernia repair on?07/09/2025. Presents for 6w post op visit. Weight gain of 2lb since last OV 1 week postop. No complaints of nausea, emesis, abdominal pain or reflux, or constipation. Taking BP medication; not taking metformin or semaglutide. Blood sugars have been running higher- 120s-140s. She is taking her BP meds daily. Present meal plan includes: no longer taking protein shakes or protein bars will take mongolian yogurt, scrambled eggs, chicken three meals per day Exercise routine includes: has not been doing anything PFSH Medical History Hyperlipidemia Anxiety Depression Abnormal echocardiogram Vitamin B 12 deficiency Elevated cholesterol GERD (gastroesophageal reflux disease) CKD (chronic kidney disease) HTN (hypertension) Decreased renal function Multinodular thyroid Hypothyroidism Vitamin D deficiency T2DM (type 2 diabetes mellitus) Osteoporosis Surgical History Hx of hernia repair History of esophagogastroduodenoscopy (EGD) H/O knee surgery Hx of thyroidectomy History of surgery on wrist Hx of cholecystectomy Family History Father Emphysema of lung Mother Myocardial infarction Hypertension Cardiovascular disease Social History Household Members: Spouse Housing: Apartment Are you a primary health care technician to a significant other at home: No Do you presently have visiting nurse or other home services: Yes Comment: tolerable Patient Tobacco Use Status: Never used Tobacco e-Cigarette/Vaping Use: Never Used service: No Current occupational status: retired Cognitive needs: No Hearing needs: Yes Vision needs: Yes Physical Exam Vital Signs: Last Vital Signs Temp 97.8 F 08/19/25 11:01 Pulse 109 H 08/19/25 11:01 BP 109/58 L 08/19/25 11:01 Pulse Ox 96 08/19/25 11:01 Oxygen Delivery Method Room Air 08/19/25 11:01 BMI result Body Mass Index 30.8 Assessment & Plan Assessment & Plan (1) S/P repair of paraesophageal hernia: Code(s): Z98.890 - Other specified postprocedural states; Z87.19 - Personal history of other diseases of the digestive system Category: Medical Plan Cautioned pt on advancing diet too quickly. Watch portion sizes and textures of food. She needs to reincorporate at least 1 protein shake per day and try to stick to softer higher protein foods for meals. She has not been consistently following the meal plan prescribed by Dr Khan and her blood sugars have increased again. I instructed her to resume semaglutide and metformin, and continue to monitor blood sugars daily. She will call the office if her numbers are too low. may resume all activity including Eliz. RTC 6w. Medications: Changed From ondansetron Only take one every 12 hours as needed if you have nausea 4 mg PO Q12H 20 tabs 0RF nausea and vomiting R11.0 - Nausea To ondansetron Only take one every 12 hours as needed if you have nausea 4 mg PO Q12H PRN R11.0 - Nausea
[2025-08-19 11:01] VITALS: BP 109/58; PULSE 109; TEMP 36.6; O2SAT 96; BMI 30.8
--- OUTSIDE RECORDS SUMMARY | 2025-08-19 12:24 | XMS_ITS | Encounter Summary ---
Author Organization [employer] Address [address] [facility] [address] [place] [address] Care Team Providers Care Media Buyer Name Role Phone Unavailable Primary Care Provider Unavailabl e Encounter Details Date Type Department Care Team (Latest Contact Info) Description 09/29/2019 Abstract [facility] CONVERSIONS Dental, Provider, DDS Social [...]
--- OUTSIDE RECORDS SUMMARY | 2025-08-19 12:24 | XMS_ITS | Clinical Summary ---
Author Organization [facility] ity Address [address] [place] [address] Care Team Providers Care Medical Cash Poster Name Role Phone Unavailable Primary Care Provider [...]
--- OUTSIDE RECORDS SUMMARY | 2025-08-19 12:24 | XMS_ITS | Clinical Summary ---
Author Organization [employer] Address [address] [facility] [address] [place] [address] Care Team Providers Care Material Handling Crew Supervisor Name Role Phone Unavailable Primary Care [...] age to complete this topic Insurance [facility] SKILLED NURSING OPTIONS (O D-SNP) MICHAEL ALONSO [id number]
== END 2025-08-19 11:46 | disposition home or self-care (01) ==
LOC: HO.HBS 10:45
PROVIDERS: PCP Nurse Practitioner Family; Visit Provider Physician Assistant Surgical
DX: E66.811 Obesity, class 1 (principal); Z68.30 Body mass index [BMI] 30.0-30.9, adult; Z98.890 Other specified postprocedural states; Z87.19 Personal history of other diseases of the digestive system
CPT/HCPCS: 99024

== ENCOUNTER → 2025-08-19 10:44 | Outpatient (BNVA) | payer OTHER, SELFPAY | PROVIDERS: PCP Nurse Practitioner Family; Visit Provider Physician Assistant Surgical | DX: Z48.815 Encounter for surgical aftercare following surgery on the digestive system (principal); Z98.890 Other specified postprocedural states; Z87.19 Personal history of other diseases of the digestive system | CPT/HCPCS: 99212 ==

== ENCOUNTER 2025-08-25 09:57 | Outpatient (AMB) | payer OTHER, SELFPAY ==
[2025-08-25 10:01] VITALS: BP 130/74; PULSE 110; O2SAT 96; BMI 30.7
--- NOTE | 2025-08-25 10:01 | AM.OFFWIN_ITS ---
Intake Vital Signs 08/25/25 10:01 Height 4 ft 9 in Weight 142 lb BMI 30.7 BP 130/74 Blood Pressure Location Lt brachial Position Sitting Pulse 110 H Pulse Source Pulse Oximeter Pulse Oximetry (%) 96 Oxygen Delivery Method Room Air Intake Visit Reasons: EP-rt leg pain & lump Intake Note: Patient presents c/o right lower leg pain & lump x10 days related to moving some heavy furniture at home. Patient Tobacco Use Status: Never used Tobacco Allergies No Known Allergies (No Known Allergies*) Allergy (Verified 08/25/25 10:06) HPI HPI Comments History of Present Illness Details [employer] student Lucy Aguilar interpreted Burmese with patient, certified interpretor, she conducted the HPI. History of Present Illness - The patient is a 74-year-old female pr esenting for evaluation of a painful area on her right calf that she first noticed approximately 10 days ago. - She believes she injured herself while moving a heavy box of furniture but did not realize she was hurt at the time. - The affected area feels warm to the to uch and has not changed in size. - Her medical history is significant for type 2 diabetes and hypertension, for which she takes medication. She does not take a blood thinner. - She underwent an abdominal surgery one month ago and reports being less active since then, although she is still ambulatory. - She denies any personal history of blo od clots and does not smoke. No active cancers. She tells me her HR is always a little elevted. Review of Systems - Musculoskeletal: Reports pain in the r ight calf. - Integumentary: Reports localized warmt h in the right calf. - Respiratory: Denies shortness of breat h. - Constitutional: Reports decreased acti vity and being more sedentary recently following an abdominal surgery. All systems reviewed and are unremarkable except as noted in HPI Physical Exam General: Cooperative, healthy appearing, comfortable, no acute distress and well developed Orientation: Patient oriented x3 Limitations: No limitations Head: Normal to inspection Ears: Hearing grossly normal bilaterally Nose: Normal External nose present Face and sinus: Normal facial exam Eyes: Appearance normal, both eyes and all related structures Neck: Normal visual inspection and Yes full ROM Respiratory: Normal respiratory effort and able to speak in complete sentences. Skin: right upper medial calf some yellow skin discoloration/ecchymosis surrounding the area of about 3.5cm circularly. Neuro: Patient oriented x3 Extremities: yellow ecchymosis noted on the right upper medial calf, 5 cm by 1.5 cm lump, no swelling of the whole leg, no TTP, no warmth noted PFSH Medical History Hyperlipidemia Anxiety Depression Abnormal echocardiogram Vitamin B 12 deficiency Elevated cholesterol GERD (gastroesophageal reflux disease) CKD (chronic kidney disease) HTN (hypertension) Decreased renal function Multinodular thyroid Hypothyroidism Vitamin D deficiency T2DM (type 2 diabetes mellitus) Osteoporosis Surgical History Hx of hernia repair History of esophagogastroduodenoscopy (EGD) H/O knee surgery Hx of thyroidectomy History of surgery on wrist Hx of cholecystectomy Family History Father Emphysema of lung Mother Myocardial infarction Hypertension Cardiovascular disease Social History Household Members: Spouse Housing: Apartment Are you a primary animal caregiver to a significant other at home: No Do you presently have visiting nurse or other home services: Yes Comment: tolerable Patient Tobacco Use Status: Never used Tobacco e-Cigarette/Vaping Use: Never Used service: No Current occupational status: retired Cognitive needs: No Hearing needs: Yes Vision needs: Yes Physical Exam Vital Signs: Last Vital Signs Pulse 110 H 08/25/25 10:01 BP 130/74 08/25/25 10:01 Pulse Ox 96 08/25/25 10:01 Oxygen Delivery Method Room Air 08/25/25 10:01 BMI result Body Mass Index 30.7 Assessment & Plan Assessment & Plan (1) Pain in right lower leg: Code(s): M79.661 - Pain in right lower leg Plan: see below (2) Localized swelling, mass and lump, right lower limb: Code(s): R22.41 - Localized swelling, mass and lump, right lower limb Plan: Plan Patient was informed and verbally consented to the use of an ambient scribe for clinic note documentation during this visit. - A deep vein thrombosis (DVT) is considered so an ultrasound was ordered to rule it out due to the patient's concern and risk factors, including recent abdominal surgery, subsequent decreased activity, and baseline tachycardia. - An ultrasound of the right leg is scheduled for tomorrow morning at 9:30. - Could also be traumatic hematoma, given the history of possible direct trauma and physical findings of localized bruising. - Advised to apply warm compresses to the area to help with reabsorption of the hematoma, which can take several weeks. - The patient is cleared to resume activities, including Eliz, as tolerated. - Will call the patient with the ultrasound results and discuss further farzad goncalves if a blood clot is identified. Orders: Orders US venous duplex LE RT Today M79.661 - Pain in right lower leg Coding Level of Care Code Est Pt Level 4 (18927) Diagnoses Pain in right lower leg M79.661 Localized swelling, mass and lump, right lower limb R22.41
== END 2025-08-25 10:35 | disposition home or self-care (01) ==
PROVIDERS: PCP Nurse Practitioner Family; Visit Provider Physician Assistant
DX: M79.661 Pain in right lower leg (principal); R22.41 Localized swelling, mass and lump, right lower limb

== ENCOUNTER → 2025-08-25 09:57 | Outpatient (BNVA) | payer OTHER, SELFPAY | PROVIDERS: PCP Nurse Practitioner Family; Visit Provider Physician Assistant | DX: M79.661 Pain in right lower leg (principal); R22.41 Localized swelling, mass and lump, right lower limb | CPT/HCPCS: 99212 ==

== ENCOUNTER 2025-08-26 08:51 | Outpatient (REF) | payer OTHER, SELFPAY ==
--- NOTE | ~2025-08-26 | US_ITS ---
EXAMINATION: US TRIPLEX LOWER EXTREMITY, RIGHT CLINICAL INFORMATION: Right lower extremity pain COMPARISON: Knee x-ray 06/03/2024 TECHNIQUE: Color-flow triplex imaging with spectral analysis and compression Doppler were performed on the right lower extremity. FINDINGS: Respiratory variation, normal compression and augmented flow are noted throughout the right lower extremity. The visualized common femoral vein, superficial femoral vein, profunda femoral vein, popliteal vein and midcalf peroneal and posterior tibial venous segments show no evidence of deep venous thrombosis. Inferomedial to patella there is an echogenic focus adjacent 3.8 x 2.2 x 4.6 cm. The area is hard to palpation. On color Doppler there is little to no flow. On x-ray from one year ago, no abnormality is evident in this region. US/US venous duplex LE RT IMPRESSION: No evidence of deep venous thrombosis involving the right lower extremity. There is an echogenic focus that is hard to palpation inferomedial to patella, in the region of Hoffa's fat pad, that is nonspecific. If there is clinical concern, consider nonemergent MRI knee without contrast. Electronically signed by: Zac Turner MD 08/26/2025 01:17 PM EST
== END 2025-08-26 08:52 | disposition home or self-care (01) ==
LOC: HO.HMGCX 08:51
PROVIDERS: PCP Nurse Practitioner Family; Visit Provider Physician Assistant
DX: M79.661 Pain in right lower leg (principal)
CPT/HCPCS: 93971

== ENCOUNTER → 2025-08-26 08:59 | Outpatient (BNV) | payer OTHER, SELFPAY | PROVIDERS: PCP Nurse Practitioner Family; Visit Provider Radiology Diagnostic Radiology | DX: M79.661 Pain in right lower leg (principal) | CPT/HCPCS: 93971 ==